=== PATIENT | male | born 1980 | race African-American/Black ===

== ENCOUNTER 2021-07-27 21:56 | Inpatient (IN) ==
[2021-07-27] MEDS ORDERED: ALBUT/IPRATROP 3MG/0.5MG NEB 3 ML VIAL NEB ONE (22:04)
[2021-07-27] MEDS ORDERED: SODIUM CHLORIDE 0.9% 500 ML IV STA (22:04)
--- NOTE | 2021-07-27 22:19 | XRay Report ---
XR chest 1V portable CLINICAL HISTORY: Dyspnea. Nonsmoker COMPARISON STUDY: No previous studies for comparison. TECHNIQUE: 1 view of the chest FINDINGS: Single frontal view of the chest demonstrates the cardiomediastinal silhouette to be within normal li mits. The lungs are clear of alveolar opacities. There is no evidence for pleural effusion. There is no evidence for vascular congestion. There is no acute osseous pathology. IMPRESSION: No acute cardiopulmonary disease. ACT 112: Negative or not required by law. Electronically signed by: Eren Ashford M.D. 07/27/2021 10:18 PM
--- NOTE | 2021-07-27 22:22 | Emergency Department Note ---
Impression & Plan Asthma with exacerbation, Hypoxia, COVID-19 ED Provider Note NAME: MARIANA [id number] LILIA AGE: 41 SEX: M : 1980 ARRIVES VIA: Ambulance INFORMANT: Patient, ED PROVIDER(S): Janes Pizarro DO CHIEF COMPLAINT: Shortness of breath HPI: The patient is a 41-year-old male who presented to the emergency department for an evaluation of difficulty breathing. The patient has a history of asthma. The patient states that he has never had an intubation for asthma but has had a hospitalization in the past. He was given prednisone as an outpatient. He started having worsening shortness of breath and cough. He was treated with 2 bronchodilators prior to arrival. He was also treated with Solu-Medrol prior to arrival. The patient continues to have significant cough and difficulty breathing. He denies having any lower extremity swelling or pain. He does have a chest pain when he coughs. The patient denies having any recent fevers. He notices no hemoptysis. ROS: See above HPI for pertinent positives & negatives. A total of 10 systems reviewed and were otherwise negative. PAST MEDICAL HISTORY: See Below PAST SURGICAL HISTORY: See Below FAMILY HISTORY: See Below SOCIAL HISTORY: See Below HOME MEDICATIONS: See Below ALLERGIES: See Below VITALS: See Below PHYSICAL EXAMINATION: GENERAL: The patient is awake and alert. The patient is very anxious appearing and appears to be in significant pain. EYES: The conjunctivae are clear. The pupils are round and reactive. EARS, NOSE, MOUTH AND THROAT: The nose is without any evidence of any deformity. Mucous membranes are moist. Tongue is midline. NECK: The neck is nontender and supple. RESPIRATORY: shallow respirations were noted. Diminished breath sounds are noted throughout with expiratory wheezing in all lung dang. There was si gnificant tachypnea and conversational dyspnea. CARDIOVASCULAR: Tachycardic rate with regular rhythm was noted. There was no definite murmur. GASTROINTESTINAL: The abdomen is soft. Abdomen is nontender. MUSCULOSKELETAL/EXTREMITIES: There is no evidence of gross deformity full range of motion is noted in the hips and shoulders. SKIN: There is no obvious evidence of any rash. There are no petechiae, pallor or cyanosis noted. NEUROLOGIC: Patient is awake alert and oriented x3. MEDICAL DECISION MAKING: The patient is a 41-year-old male who presented to the emergency department for an evaluation of difficulty breathing. The patient currently resides in the care home. He has a history of asthma. He has been having asthma-like symptoms for the last few days. This became significantly worse prior to arrival. He was noted to have hypoxia by the prehospital personnel. He was treated with multiple bronchodilator treatments prior to arrival. He also was given Solu- Medrol by the prehospital personnel. The patient was put on an hour-long nebulizer in the emergency department. He was treated with IV fluids. I discussed the patient's laboratory and radiographic studies with him. He still continues to have an oxygen requirement and has significant tachypnea. For this reason I will discuss [facility] I feel the patient may require further inpatient management to further evaluate and treat the patient. Triage Nursing notes reviewed. Prior medical records reviewed Vital Signs: reviewed and remarkable for tachycardia, elevated blood pressure and hypoxia. Differential diagnosis: Reactive airway disease, pneumonia, pneumothorax, COPD, CHF, infections, cardiac ischemia, pulmonary embolism, musculoskeletal, gastrointestinal, as well as other pathologies. ER treatment provided: See below Diagnostics interpreted by me: ECG: EKG was obtained in the emergency department. My interpretation is sinus tachycardia 113 bpm. Frequent PVCs were noted. There is no acute ST segment abnormalities noted. No previous tracing was available. Cardiac Monitoring: An order was placed for continuous cardiac monitoring. The monitor shows a rate of 117 bpm with sinus tachycardia rhythm. Laboratory studies: As stated above and show below. Imaging studies: See below Consultation(s): Dr. Pereira who [facility] was notified about the patient. Past Med/Surg History Medical History Asthma Social History Smoking Status: Former smoker Tobacco Type: Cigarettes Results & Data (ED) Vital Signs Vital Signs - 24 hr 07/27/21 22:06 07/27/21 22:09 07/27/21 22:17 Temperature 37 C Temperature Source Oral Pulse Rate 127 H 127 H Pulse Rate [Apical] 114 H Pulse Rhythm Regular Regular Pulse Strength Normal Respiratory Rate 26 H 26 H 20 Respiratory Effort / Characteristics Nasal Flaring Pursed Lip Retracting Nasal Flaring Retracting Spontaneous Respiratory Depth Shallow Shallow Respiratory Pattern Gasping Blood Pressure 138/91 Blood Pressure [Right Arm] Blood Pressure Mean 106 Blood Pressure Mean [Right Arm] Blood Pressure Position Lying Pulse Oximetry 84 L 93 96 Oxygen Delivery Method Room Air Nasal Cannula Nasal Cannula Oxygen Flow Rate 3 3 Sepsis Recent Fever Within 48 Hours No Sepsis New/Unexplained Change in Mental Status No Sepsis Action Taken by Nursing No Action Required Oxygen Flow Rate - Titration Fraction of Inspired Oxygen - Titration Pulse Oximetry Post Tiitration 07/27/21 23:17 07/27/21 23:36 07/27/21 23:39 Temperature Temperature Source Pulse Rate Pulse Rate [Apical] 117 H Pulse Rhythm Pulse Strength Respiratory Rate 21 Respiratory Effort / Characteristics Respiratory Depth Respiratory Pattern Blood Pressure Blood Pressure [Right Arm] 154/126 H Blood Pressure Mean Blood Pressure Mean [Right Arm] 135 Blood Pressure Position Pulse Oximetry 98 78 L 98 Oxygen Delivery Method Nebulizer Nasal Cannula Oxymask Oxymask Oxygen Flow Rate 3 6 Sepsis Recent Fever Within 48 Hours Sepsis New/Unexplained Change in Mental Status Sepsis Action Taken by Nursing Oxygen Flow Rate - Titration 6 Fraction of Inspired Oxygen - Titration 3 Pulse Oximetry Post Tiitration 96 98 Home Medications Current Medication List: was personally reviewed by me Laboratory Data Attestation: I reviewed the patient's lab results. Result diagrams: 07/27/21 22:12 07/27/21 22:12 Lab Results 07/27/21 07/27/21 07/27/21 Range/Units 22:12 22:12 22:18 WBC 6.90 (4.8-10.8) K/uL RBC 5.45 (4.7-6.1) M/uL Hgb 16.3 (14.0-18.0) g/dL Hct 48.6 (42-52) % MCV 89.2 (80-100) fL MCH 29.9 (25-34) pg MCHC 33.5 (32-36) g/dL RDW Std Deviation 42.2 (36.4-46.3) fL RDW Coeff of Kimi 13.1 (11.5-14.5) % Plt Count 192 (130-400) K/uL MPV 10.2 (7.4-10.4) fL Immature Gran % (Auto) 0.3 % Neut % (Auto) 43.9 % Lymph % (Auto) 34.6 % [place] % (Auto) 10.9 % Eos % (Auto) 9.9 % Baso % (Auto) 0.4 % Neut # (Auto) 3.03 (1.4-6.5) K/uL Lymph # (Auto) 2.39 (1.2-3.4) K/uL [place] # (Auto) 0.75 H (0.11-0.59) K/uL Eos # (Auto) 0.68 H (0-0.5) K/uL Baso # (Auto) 0.03 (0-0.2) K/uL Immature Gran # (Auto) 0.02 (0.00-0.02) K/uL VBG pH (7.36-7.41) VBG pCO2 (38-50) mmHg VBG pO2 mmHg VBG HCO3 mmol/L VBG O2 Saturation % VBG Base Excess mEq/L Sodium 139 (136-145) mmol/L Potassium 3.5 (3.5-5.1) mmol/L Chloride 107 (98-107) mmol/L Carbon Dioxide 24 (21-32) mmol/L Anion Gap 8 (3-11) BUN 7 (6-23) mg/dl Creatinine 1.19 (0.6-1.4) mg/dl Est Cr Clr Drug Dosing 78.2 ml/min Est GFR ( Amer) 86.8 ml/min Est GFR (Non-Af Amer) 74.9 ml/min BUN/Creatinine Ratio 5.9 L (10-20) Glucose 130 H (70-99) mg/dl Calcium 8.9 (8.5-10.1) mg/dl Magnesium 2.1 (1.7-2.4) mg/dl Total Bilirubin 0.4 (0.2-1.0) mg/dl AST 25 (13-39) U/L ALT 30 (7-52) U/L Alkaline Phosphatase 72 (34-104) U/L Troponin I < 0.03 (0-0.04) ng/ml Total Protein 7.3 (6.0-8.3) gm/dl Albumin 4.2 (3.4-5.0) gm/dl Globulin 3.1 (2.5-4.0) gm/dl Albumin/Globulin Ratio 1.4 (0.9-2) SARS-CoV-2 (PCR) POSITIVE A* (Negative) Influenza Type A (PCR) Negative (Neg) Influenza Type B (PCR) Negative (Neg) RSV (RT-PCR) Negative (Neg) 07/27/21 Range/Units 23:06 WBC (4.8-10.8) K/uL RBC (4.7-6.1) M/uL Hgb (14.0-18.0) g/dL Hct (42-52) % MCV (80-100) fL MCH (25-34) pg MCHC (32-36) g/dL RDW Std Deviation (36.4-46.3) fL RDW Coeff of Kimi (11.5-14.5) % Plt Count (130-400) K/uL MPV (7.4-10.4) fL Immature Gran % (Auto) % Neut % (Auto) % Lymph % (Auto) % [place] % (Auto) % Eos % (Auto) % Baso % (Auto) % Neut # (Auto) (1.4-6.5) K/uL Lymph # (Auto) (1.2-3.4) K/uL [place] # (Auto) (0.11-0.59) K/uL Eos # (Auto) (0-0.5) K/uL Baso # (Auto) (0-0.2) K/uL Immature Gran # (Auto) (0.00-0.02) K/uL VBG pH 7.31 L (7.36-7.41) VBG pCO2 58 H (38-50) mmHg VBG pO2 31 mmHg VBG HCO3 29 mmol/L VBG O2 Saturation < 60.0 % VBG Base Excess 1.1 mEq/L Sodium (136-145) mmol/L Potassium (3.5-5.1) mmol/L Chloride (98-107) mmol/L Carbon Dioxide (21-32) mmol/L Anion Gap (3-11) BUN (6-23) mg/dl Creatinine (0.6-1.4) mg/dl Est Cr Clr Drug Dosing ml/min Est GFR ( Amer) ml/min Est GFR (Non-Af Amer) ml/min BUN/Creatinine Ratio (10-20) Glucose (70-99) mg/dl Calcium (8.5-10.1) mg/dl Magnesium (1.7-2.4) mg/dl Total Bilirubin (0.2-1.0) mg/dl AST (13-39) U/L ALT (7-52) U/L Alkaline Phosphatase (34-104) U/L Troponin I (0-0.04) ng/ml Total Protein (6.0-8.3) gm/dl Albumin (3.4-5.0) gm/dl Globulin (2.5-4.0) gm/dl Albumin/Globulin Ratio (0.9-2) SARS-CoV-2 (PCR) (Negative) Influenza Type A (PCR) (Neg) Influenza Type B (PCR) (Neg) RSV (RT-PCR) (Neg) Administered Medications Discontinued Medications Albuterol (Albut/Ipratrop 3mg/0.5mg Neb 3 Ml Vial) 12 ml NEB ONE ONE; Protocol Stop: 07/27/21 22:05 Last Admin: 07/27/21 22:16 Dose: 12 ml Documented by: [id number] Sodium Chloride (Nss) 500 mls @ 999 mls/hr IV .Q31M STA Stop: 07/27/21 22:34 Last Admin: 07/27/21 22:21 Dose: 999 mls/hr Documented by: [id number] Imaging Data Radiologist's Impression: Chest X-Ray 07/27/21 22:04 XR chest 1V portable CLINICAL HISTORY: Dyspnea. Nonsmoker COMPARISON STUDY: No previous studies for comparison. TECHNIQUE: 1 view of the chest FINDINGS: Single frontal view of the chest demonstrates the cardiomediastinal silhouette to be within normal limits. The lungs are clear of alveolar opacities. There is no evidence for pleural effusion. There is no evidence for vascular congestion. There is no acute osseous pathology. IMPRESSION: No acute cardiopulmonary disease. ACT 112: Negative or not required by law. Electronically signed by: Eren Ashford M.D. 07/27/2021 10:18 PM Discharge Plan Visit Data Chief Complaint: Shortness of Breath/Dyspnea Stated Complaint: SOB ED Provider: Janes Pizarro Discharge Problem: Asthma with exacerbation, Hypoxia, COVID-19 Patient Disposition: Being Evaluated by Hospitalist Forms Stand Alone Forms: [facility] -
[2021-07-27 22:23] LABS: Basophils # (auto) 0.03 K/uL (0-0.2); Basophils % (auto) 0.4 %; Eosinophils # (auto) 0.68 K/uL (0-0.5); Eosinophils % (auto) 9.9 %; Hematocrit (blood only) 48.6 % (42-52); Hemoglobin 16.3 g/dL (14.0-18.0); Immature Granulocytes # (auto) 0.02 K/uL (0.00-0.02); Immature Granulocytes % (auto) 0.3 %; Lymphocytes # (auto) 2.39 K/uL (1.2-3.4); Lymphocytes % (auto) 34.6 %; Mean Corpuscular Hemoglobin 29.9 pg (25-34); Mean Corpuscular Hgb Conc 33.5 g/dL (32-36); Mean Corpuscular Volume 89.2 fL (80-100); Mean Platelet Volume 10.2 fL (7.4-10.4); Monocytes # (auto) 0.75 K/uL (0.11-0.59); Monocytes % (auto) 10.9 %; Neutrophils # (auto) 3.03 K/uL (1.4-6.5); Neutrophils % (auto) 43.9 %; Platelet Count 192 K/uL (130-400); RDW Coefficient of Variation 13.1 % (11.5-14.5); RDW Standard Deviation 42.2 fL (36.4-46.3); Red Blood Count 5.45 M/uL (4.7-6.1)
[2021-07-27 22:45] LABS: Troponin I < 0.03 ng/ml (0-0.04)
[2021-07-27 22:51] LABS: Alanine Aminotransferase 30 U/L (7-52); Albumin Globulin Ratio 1.4 (0.9-2); Albumin Level 4.2 gm/dl (3.4-5.0); Alkaline Phosphatase 72 U/L (34-104); Anion Gap 8 (3-11); Aspartate Aminotransferase 25 U/L (13-39); BUN Creatinine Ratio 5.9 (10-20); Bilirubin,Total 0.4 mg/dl (0.2-1.0); Blood Urea Nitrogen 7 mg/dl (6-23); Calcium 8.9 mg/dl (8.5-10.1); Carbon Dioxide 24 mmol/L (21-32); Chloride 107 mmol/L (98-107); Creatinine Clr Calc Pharmacy 78.2 ml/min; Est GFR (African American) 86.8 ml/min; Est GFR (Non-African American) 74.9 ml/min; Globulin 3.1 gm/dl (2.5-4.0); Glucose 130 mg/dl (70-99); Magnesium 2.1 mg/dl (1.7-2.4); Potassium 3.5 mmol/L (3.5-5.1); Sodium 139 mmol/L (136-145); Total Protein 7.3 gm/dl (6.0-8.3)
[2021-07-27 23:02] LABS: Influenza A virus by PCR Negative (Neg); Influenza B virus by PCR Negative (Neg); RSV by PCR Negative (Neg)
[2021-07-27 23:06] LABS: SARS CoV2 RNA(COVID-19) InHosp POSITIVE (Negative)
[2021-07-27 23:23] LABS: Base Excess VBG 1.1 mEq/L; HCO3 VBG 29 mmol/L; PCO2 VBG 58 mmHg (38-50); PO2 VBG 31 mmHg; pH VBG 7.31 (7.36-7.41)
[2021-07-27 23:33] LABS: Oxygen Saturation VBG < 60.0 %
[2021-07-28] MEDS ORDERED: REMDESIVIR 200 MG in SODIUM CHLORIDE 0.9% 210 ML IV STA (01:12)
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
[2021-07-28] MEDS: MAGNESIUM SULFATE / D5W 1 GM/100 ML BAG IV SCH ×2 (02:03→02:38)
[2021-07-28 02:23] LABS: Appearance Urine Clear (Clear); Bilirubin Urine Negative (Negative); Blood Urine Negative (Negative); Color Urine Yellow; Glucose Urine UA Negative (Negative); Ketones Urine Negative (Negative); Leukocyte Esterase Urine Negative (Negative); Nitrite Urine Negative (Negative); Protein Urine Negative (Negative); Specific Gravity Urine 1.006 (1.000-1.030); Urobilinogen Urine Negative (Negative)
[2021-07-28] MEDS ORDERED: ACETAMINOPHEN 325 MG TAB PO PRN (04:08)
[2021-07-28] MEDS ORDERED: ONDANSETRON INJ 2 MG/ML 2 ML VIAL IV PRN (04:08)
[2021-07-28] MEDS ORDERED: ALBUTEROL 0.5% NEB SOLN 2.5 MG/0.5 ML VIAL NEB PRN (04:08)
[2021-07-28] MEDS: ALBUT/IPRATROP 3MG/0.5MG NEB 3 ML VIAL NEB SCH ×3 (04:40→10:22)
[2021-07-28] MEDS ORDERED: PATIENT'S ALLERGY INFO NEEDS ENTERED STA (05:00)
[2021-07-28 06:39] LABS: Base Excess VBG -1.3 mEq/L; HCO3 VBG 26 mmol/L; PCO2 VBG 54 mmHg (38-50); PO2 VBG 35 mmHg
[2021-07-28 07:00] LABS: D Dimer 260 ug/L FEU (0-500)
[2021-07-28 07:20] LABS: Phosphorus 2.7 mg/dl (2.5-4.9)
[2021-07-28 07:31] LABS: Ferritin 88.3 ng/ml (8-388)
[2021-07-28] MEDS: ZINC SULFATE 220 MG CAPSULE PO SCH ×2 (08:29→21:18)
[2021-07-28] MEDS: BENZONATATE 100 MG CAPSULE PO SCH ×3 (08:30→21:18)
[2021-07-28] MEDS: ENOXAPARIN INJ 40 MG/0.4 ML SYR SQ SCH (08:31)
[2021-07-28] MEDS ORDERED: methylPREDNISolone 40 MG in SYRINGE 0 ML IV SCH (09:00)
--- NOTE | 2021-07-28 09:39 | Electrocardiogram Report ---
Test Reason : Blood Pressure : / mmHG Vent. Rate : 113 BPM Atrial Rate : 113 BPM P-R Int : 122 ms QRS Dur : 080 ms QT Int : 310 ms P-R-T Axes : 083 082 031 degrees QTc Int : 425 ms Sinus tachycardia with frequent Premature ventricular complexes Otherwise normal ECG No previous ECGs available Confirmed by Vel Lorenz ([id number]) on 07/28/2021 9:39:27 AM Referred By: [facility] Confirmed By:Vel Lorenz
--- NOTE | 2021-07-28 16:26 | History & Physical Bridge Note ---
Date of Service July 28, 2021 History & Physical Bridge Note I have examined the patient, reviewed the History & Physical and in the interval since the performance of the History & Physical I have noted the following changes of clinical significance: patient states he still isn't feeling much better, he is concerned due to his tachycardia, discussed that it is sinus tachycardia, could be from albuterol plus stress/anxiety he is coughing, it is a dry cough no inspiratory or expiratory wheezing, but not great breath sounds either will increase Solu Medrol to 40mg TID, give him 40mg IV stat now change to Levalbuterol with the tachycardia and him being worried about it reviewed chart, CXR is clear, no infiltrates D dimer only 260 so no concerns abut PE, keep Lovenox once a day he is stable on 2L NC
[2021-07-28] MEDS ORDERED: methylPREDNISolone 40 MG in SYRINGE 0 ML IV ONE (16:45)
[2021-07-28] MEDS: LEVALBUTEROL 1.25MG/0.5ML NEB NEB SCH (19:47)
[2021-07-28] MEDS: methylPREDNISolone 40 MG in SYRINGE 0 ML IV SCH (21:40)
[2021-07-29] MEDS: LEVALBUTEROL 1.25MG/0.5ML NEB NEB SCH ×4 (00:02→19:45)
[2021-07-29 08:01] LABS: Basophils # (auto) 0.01 K/uL (0-0.2); Basophils % (auto) 0.1 %; Hematocrit (blood only) 49.5 % (42-52); Hemoglobin 16.1 g/dL (14.0-18.0); Immature Granulocytes # (auto) 0.05 K/uL (0.00-0.02); Immature Granulocytes % (auto) 0.5 %; Lymphocytes # (auto) 1.02 K/uL (1.2-3.4); Lymphocytes % (auto) 9.2 %; Mean Corpuscular Hemoglobin 29.7 pg (25-34); Mean Corpuscular Hgb Conc 32.5 g/dL (32-36); Mean Corpuscular Volume 91.2 fL (80-100); Mean Platelet Volume 10.5 fL (7.4-10.4); Monocytes # (auto) 1.11 K/uL (0.11-0.59); Neutrophils # (auto) 8.92 K/uL (1.4-6.5); Neutrophils % (auto) 80.2 %; Platelet Count 223 K/uL (130-400); RDW Coefficient of Variation 13.6 % (11.5-14.5); RDW Standard Deviation 45.4 fL (36.4-46.3); Red Blood Count 5.43 M/uL (4.7-6.1); White Blood Count 11.11 K/uL (4.8-10.8)
[2021-07-29] MEDS: ZINC SULFATE 220 MG CAPSULE PO SCH (08:01)
[2021-07-29] MEDS: BENZONATATE 100 MG CAPSULE PO SCH ×3 (08:01→20:13)
[2021-07-29] MEDS: methylPREDNISolone 40 MG in SYRINGE 0 ML IV SCH (08:01)
[2021-07-29] MEDS: ENOXAPARIN INJ 40 MG/0.4 ML SYR SQ SCH (08:08)
[2021-07-29 08:24] LABS: Albumin Level 4.6 gm/dl (3.4-5.0); BUN Creatinine Ratio 12.1 (10-20); Bilirubin Direct 0.1 mg/dl (0-0.2); Bilirubin,Total 0.5 mg/dl (0.2-1.0); Calcium 9.6 mg/dl (8.5-10.1); Est GFR (African American) 108.4 ml/min; Est GFR (Non-African American) 93.6 ml/min; Potassium 4.5 mmol/L (3.5-5.1); Total Protein 7.7 gm/dl (6.0-8.3)
--- NOTE | 2021-07-29 09:26 | XRay Report ---
XR chest 1V portable CLINICAL HISTORY: hypoxia, asthmam, COVID. COMPARISON STUDY: 07/27/2021 TECHNIQUE: 1 view of the chest FINDINGS: Single frontal view of the chest demonstrates the cardiomediastinal silhouette to be within normal li mits. The lungs are clear of alveolar opacities. There is no evidence for pleural effusion. There is no evidence for vascular congestion. There is no acute osseous pathology. IMPRESSION: No acute cardiopulmonary disease. ACT 112: Negative or not required by law. Electronically signed by: Eren Ashford M.D. 07/29/2021 9:25 AM
--- NOTE | 2021-07-29 09:43 | Electrocardiogram Report ---
Test Reason : Blood Pressure : / mmHG Vent. Rate : 136 BPM Atrial Rate : 136 BPM P-R Int : 120 ms QRS Dur : 070 ms QT Int : 288 ms P-R-T Axes : 084 082 052 degrees QTc Int : 433 ms Poor data quality, interpretation may be adversely affected Sinus tachycardia with occasional Premature ventricular complexes Nonspecific ST abnormality When compared with ECG of 27-JUL-2021 22:18, No significant change was found Confirmed by Vel Lorenz ([id number]) on 07/29/2021 9:42:41 AM Referred By: [facility] Confirmed By:Vel Lorenz
[2021-07-29] MEDS ORDERED: REMDESIVIR 100 MG in SODIUM CHLORIDE 0.9% 230 ML IV SCH (12:00)
[2021-07-29] MEDS ORDERED: SODIUM CHLORIDE 0.9% 10ML FLUSH IV SCH (12:00)
--- NOTE | 2021-07-29 12:47 | Hospitalist Progress Note ---
Date of Service July 29, 2021 Assessment & Plan (1) Asthma with exacerbation: Plan: Patient with acute hypoxic respiratory failure in setting of Covid-19 infection, asthma exacerbation long history of asthma, has not been hospitalized for years continues with wheezing, tachypnea today, not feeling any better will increase Solu Medrol to 60mg TID continue levalbuterol q6 with albuterol q2 PRN add Zithromax 500mg daily for atypical coverage he is stable on 2L NC, he is 88% when on room air (2) Hypoxia: Plan: minimal oxygen requirements, he is stable on 2L which is improvement from 6L mask when he was in ED he is working a little hard to breathe, he is tachypneic monitor for any increasing oxygen requirements repeat CXR 07/29 with no infiltrates, do not suspect viral pneumonia as cause of hypoxia (3) COVID-19: Plan: no evidence of viral pneumonia on CXR 07/27 and 07/29 stop Remdesivir continue Solu Medrol for asthma exacerbation continue isolation D dimer normal at 260, no need for CTA chest continue Lovenox 40mg daily (4) Sinus tachycardia: Plan: due to stress, nebulizers no concern about PE with a D dimer of only 260 Plan: F/E/N - Heplock. Monitor electrolytes. Regular diet as tolerated Ppx - Lovenox 40 Code- Full per discussion with patient Admission and Anticipated Discharge Date Admission Date: July 28, 2021 Subjective patient feeling a little more short of breath, more wheezing today he feels the steroids are not helping he is eating and drinking okay, mostly drinking water no fever or chills, he has a dry cough, no chest pain, no N/V/D Review of Systems Review of Systems: All systems reviewed & are unremarkable except as noted in Subjective Constitutional: no fever Respiratory: + cough, + dyspnea, + dyspnea on exertion and + wheezing Cardiovascular: no chest pain Physical Exam Physical Exam: General: well developed, well nourished, no acute distress, uncomfortable Neck: supple, trachea midline, normal thyroid Lungs: bilateral expiratory wheezing, + tachypnea, + accessory muscles, no distress Heart: tachycardic S1 and S2, no murmur, peripheral pulses normal, capillary refill normal, no edema Abdomen: soft, NT, ND, + BS, no hepatomegaly, normal to percussion Extremities: normal in appearance, no cyanosis, no petechiae, strength is 5/5 bilaterally Neuro: awake, cooperative, moves all extremities, no focal motor deficits, CN II-XII intact, sensation in extremities intact, normal speech Skin: warm, dry, no rash, normal turgor Psych: Awake, alert oriented x 3, euthymic affect Results & Data Results & Data ([facility]) Vital Signs (Past 12 Hours) Vital Signs Temp Pulse Pulse Resp BP Pulse Ox 07/29/21 11:29 37.1 C 125 H 22 122/94 95 07/29/21 08:26 132 H 22 85 L 07/29/21 08:00 106 H 07/29/21 07:27 36.4 C L 110 H 21 122/96 91 07/29/21 03:54 36.6 C 127 H 20 132/89 94 07/29/21 03:26 117 H 24 95 Laboratory Results Laboratory Results - last 24 hr 07/29/21 07/29/21 07:30 07:30 WBC 11.11 H RBC 5.43 Hgb 16.1 Hct 49.5 MCV 91.2 MCH 29.7 MCHC 32.5 RDW Std Deviation 45.4 RDW Coeff of Kimi 13.6 Plt Count 223 MPV 10.5 H Immature Gran % (Auto) 0.5 Neut % (Auto) 80.2 Lymph % (Auto) 9.2 [place] % (Auto) 10.0 Eos % (Auto) 0.0 Baso % (Auto) 0.1 Neut # (Auto) 8.92 H Lymph # (Auto) 1.[address] [place] # (Auto) 1.11 H Eos # (Auto) 0.00 Baso # (Auto) 0.01 Immature Gran # (Auto) 0.05 H Sodium 138 Potassium 4.5 Chloride 104 Carbon Dioxide 27 Anion Gap 7 BUN 12 Creatinine 0.99 Est Cr Clr Drug Dosing 94.0 Est GFR ( Amer) 108.4 Est GFR (Non-Af Amer) 93.6 BUN/Creatinine Ratio 12.1 Glucose 115 H Calcium 9.6 Total Bilirubin 0.5 Direct Bilirubin 0.1 AST 32 ALT 31 Alkaline Phosphatase 71 Total Protein 7.7 Albumin 4.6 Medications Administered Current Inpatient Medications Acetaminophen (Acetaminophen 325 Mg Tab) 650 mg PO Q4H PRN PRN Reason: Pain or Fever Stop: 08/27/21 04:07 Last Admin: 07/28/21 06:07 Dose: 650 mg Documented by: Albuterol (Albuterol 0.5% Neb Soln 2.5 Mg/0.5 Ml Vial) 2.5 mg NEB Q2H PRN; Protocol PRN Reason: SOB/Wheeze Stop: 08/27/21 04:07 Last Admin: 07/29/21 03:25 Dose: 2.5 mg Documented by: Azithromycin (Azithromycin 250 Mg Tab) 500 mg PO QAM [facility] Stop: 08/05/21 12:44 Benzonatate (Benzonatate 100 Mg Capsule) 100 mg PO TID [facility] Stop: 08/27/21 08:59 Last Admin: 07/29/21 08:01 Dose: 100 mg Documented by: Enoxaparin Sodium (Enoxaparin Inj 40 Mg/0.4 Ml Syr) 40 mg SQ Q24H [facility] Stop: 08/27/21 07:59 Last Admin: 07/29/21 08:08 Dose: Not Given Documented by: Methylprednisolone 40 mg/ (Syringe) 0.64 mls @ 1.5 mls/min IV TID [facility] Stop: 08/27/21 20:59 Last Admin: 07/29/21 08:01 Dose: 1.5 mls/min Documented by: Levalbuterol HCl (Levalbuterol 1.25mg/0.5ml Neb) 1.25 mg NEB Q6R [facility]; Protocol Stop: 08/27/21 16:29 Last Admin: 07/29/21 08:26 Dose: 1.25 mg Documented by: Ondansetron HCl (Ondansetron Inj 2 Mg/Ml 2 Ml Vial) 4 mg IV Q6H PRN PRN Reason: Nausea Stop: 08/27/21 04:07 Sodium Chloride (Sodium Chloride 0.9% 10ml Flush) 30 ml IV Q24H [facility] Stop: 08/01/21 12:01 Last Admin: 07/29/21 12:18 Dose: 30 ml Documented by: Zinc Sulfate (Zinc Sulfate 220 Mg Capsule) 220 mg PO BID [facility] Stop: 08/27/21 08:59 Last Admin: 07/29/21 08:01 Dose: 220 mg Documented by: PG Care Time/CCT Total # of Minutes Spent Total Time Spent: 32 Total Time Spent with Patient: Total time spent is greater than 50% in coordination of care (as documented) at patient's floor/unit and/or counseling patient: Coding Level of Care Code 50842 Subseq Hosp Care Lvl 3 (25 - SIGNIFICANT, SEPARATELY IDENTIFIABLE ) Diagnoses COVID-19 U07.1 Asthma with exacerbation J45.901 Asthma persistence: unspecified Asthma severity: unspecified severity Hypoxia R09.02 Sinus tachycardia R00.0 (1) Asthma with exacerbation Asthma persistence: unspecified Asthma severity: unspecified severity Qualified Code(s): J45.901 - Unspecified asthma with (acute) exacerbation
[2021-07-29] MEDS: AZITHROMYCIN 250 MG TAB PO SCH (13:12)
[2021-07-29] MEDS: methylPREDNISolone 60 MG in SYRINGE 0 ML IV SCH ×2 (14:00→20:16)
[2021-07-29] MEDS ORDERED: ALBUTEROL 0.083% NEBU SOLN 3 ML VIAL NEB STA (15:59)
[2021-07-29] MEDS ORDERED: LORazepam 0.5 MG/1 ML VIAL IV PRN (16:17)
[2021-07-29] MEDS ORDERED: LORazepam 0.5 MG/1 ML VIAL IV STA ×2 (16:17→18:45)
[2021-07-29] MEDS: MAGNESIUM SULFATE / D5W 1 GM/100 ML BAG IV SCH ×3 (16:36→23:41)
[2021-07-29] MEDS ORDERED: SUCCINYLCHOLINE CHLORIDE 20 MG/ML 10 ML VIAL IV ONE (18:19)
[2021-07-29] MEDS ORDERED: PROPOFOL IV EMULSION 10 MG/ML 20 ML VIAL IV ONE ×2 (18:19→21:37)
[2021-07-29] MEDS ORDERED: IPRATROPIUM BROMIDE NEB SOLN 0.02% 2.5 ML VIAL NEB STA (20:16)
[2021-07-29] MEDS ORDERED: MoRPHine SULFATE 2 MG/ML CARP IV STA (21:18)
[2021-07-29 21:27] LABS: iSTAT Allen Test Pass; iSTAT Art Bld Gas pCO2 Correct 93 mmHg (35-46); iSTAT Art Bld Gas pH Corrected 7.157 (7.35-7.45); iSTAT Arterial Blood Gas HCO3 33 meg/L (19-24); iSTAT Arterial Blood Gas pCO2 93 mmHg (35-46); iSTAT Arterial Blood Gas pH 7.16 (7.35-7.45); iSTAT Arterial Blood Gas pO2 266 mmHg (80-95); iSTAT Arterial Blood Gas pO2 C 266; iSTAT Carbon Dioxide 36 mmol/L (24-31); iSTAT FiO2 70 %; iSTAT Hematocrit 51 % (42-52); iSTAT Hemoglobin 17.3 g/dl (14.0-18.0); iSTAT Potassium 5.7 mmol/L (3.3-5.0); iSTAT Site R Radial; iSTAT Sodium 137 mmol/L (135-144)
[2021-07-29] MEDS ORDERED: RAPID SEQUENCE INDUCTION BAG ONE (21:30)
[2021-07-29] MEDS ORDERED: SODIUM BICARB 8.4% INJ 50 MEQ/50 ML SYR IV ONE (21:38)
[2021-07-29] MEDS ORDERED: PROPOFOL IV EMULSION 10 MG/ML 100 ML VIAL IV ONE (21:44)
[2021-07-29] MEDS: propofoL 1,000 MG/100 ML VIAL IV SCH (21:45)
[2021-07-29] MEDS ORDERED: STAT IV Infusion **Titration per Protocol STA ×2 (21:58→23:07)
[2021-07-29] MEDS: PROPOFOL BOLUS FROM BAG IV PRN (22:00)
[2021-07-29] MEDS ORDERED: MIDAZOLAM HCL 5 MG/ML 1 ML VIAL IV STA (22:01)
--- NOTE | 2021-07-29 22:06 | Anesthesiology Progress Note ---
Date of Service July 29, 2021 Assessment & Plan (1) Required emergent intubation: Plan: Intubation Note Date and time of procedure: 07/29/21 Indication for Intubation: Failure to ventilate Respiratory distress Consent: Emergency procedure in life threatening situation consent implied Time Out: A time-out was performed verifying correct patient with two identifiers, procedure, site, positioning, and special equipment (if needed). Monitors Attached: EKG BP Pulse Oximetry CO2 Induction Medications: [150]mg Propofol Paralytic Medication: [120]mg Succinylcholine Intubation Technique: Adequate preoxygenation Mask Ventilation Oral Airway RSI Equipment: Glidescope[3] View: Grade 1 Endotracheal Tube: Oral 7.0 with Stylet Procedure Details: ET tube was placed atraumatically on [1st] attempt. Balloon was inflated and the tube was secured at [24] cm. Placement was confirmed by auscultation and positive CO2 detection. Post-procedure: Pt hemodynamically stable throughout. Patient tolerated the procedure well without apparent complications. Post placement CXR ordered. Present on Admission?: No Admission and Anticipated Discharge Date Admission Date: July 28, 2021 Subjective Covid positive patient with asthma exacerbation with respiratory failure and in need of emergent intubation (called by ICU team to intubate). Physical Exam Vital Signs: Last Vital Signs Temp 36.7 C 07/29/21 19:36 Pulse 128 H 07/29/21 21:24 Resp 24 07/29/21 21:24 BP 143/107 H 07/29/21 21:24 Pulse Ox 98 07/29/21 21:24 Results & Data ([facility]) Medications Administered Azithromycin (Azithromycin 250 Mg Tab) 500 mg PO QAM [facility] Stop: 08/05/21 12:44 Last Admin: 07/29/21 13:12 Dose: 500 mg Documented by: [id number] Enoxaparin Sodium (Enoxaparin Inj 40 Mg/0.4 Ml Syr) 40 mg SQ Q24H [facility] Stop: 08/27/21 07:59 Last Admin: 07/29/21 08:08 Dose: Not Given Documented by: [id number] Admin: 07/28/21 08:31 Dose: Not Given Documented by: [id number] Methylprednisolone 60 mg/ (Syringe) 0.96 mls @ 1.5 mls/min IV Q8 [facility] Stop: 08/28/21 13:59 Last Admin: 07/29/21 20:16 Dose: 1.5 mls/min Documented by: [id number] Admin: 07/29/21 14:00 Dose: 1.5 mls/min Documented by: [id number] Levalbuterol HCl (Levalbuterol 1.25mg/0.5ml Neb) 1.25 mg NEB Q6R [facility]; Protocol Stop: 08/27/21 16:29 Last Admin: 07/29/21 19:45 Dose: 1.25 mg Documented by: [id number] Admin: 07/29/21 15:04 Dose: 1.25 mg Documented by: [id number] Admin: 07/29/21 08:26 Dose: 1.25 mg Documented by: [id number] Admin: 07/29/21 00:02 Dose: 1.25 mg Documented by: [id number] Admin: 07/28/21 19:47 Dose: 1.25 mg Documented by: [id number]
[2021-07-29] MEDS ORDERED: MIDAZOLAM HCL 5 MG/ML 1 ML VIAL ONE (22:07)
[2021-07-29] MEDS: fentaNYL citrate 2,500 MCG/250 ML BAG IV SCH (22:29)
[2021-07-29] MEDS ORDERED: ALBUT/IPRATROP 3MG/0.5MG NEB 3 ML VIAL ONE (22:39)
[2021-07-29] MEDS ORDERED: METOPROLOL TARTRATE 1 MG/ML VIAL IV STA (22:45)
[2021-07-29] MEDS ORDERED: METOPROLOL TARTRATE 1 MG/ML VIAL IV ONE (22:46)
[2021-07-29] MEDS ORDERED: VECURONIUM BROMIDE 10 MG VIAL IV ONE (22:49)
[2021-07-29] MEDS ORDERED: ALBUTEROL 0.5% NEB SOLN 2.5 MG/0.5 ML VIAL NEB STA (23:04)
--- NOTE | 2021-07-29 23:04 | XRay Report ---
XR chest 1V portable at 9:56 PM CLINICAL HISTORY: intubation. COMPARISON STUDY: 07/29/2021 at 7:57 AM TECHNIQUE: 1 view of the chest FINDINGS: Single frontal view of the chest demonstrates the cardiomediastinal silhouette to be within normal li mits. Endotracheal tube has its place with its tip approximately 5.3 cm above the tono. NG tube is also in place with its tip extending below the edge of the film and into the body of the stomach. The lungs are clear of alveolar opacities. There is no evidence for pleural effusion. There is very mild central vascular congestion present. There is no acute osseous pathology. IMPRESSION: ET and NG tubes in position. Mild central vascular congestion. ACT 112: Negative or not required by law. Electronically signed by: Eren Ashford M.D. 07/29/2021 11:02 PM
[2021-07-29] MEDS ORDERED: MONTELUKAST SODIUM 10 MG TABLET PO ONE (23:05)
[2021-07-29] MEDS ORDERED: ALBUTEROL 0.5% NEB SOLN 2.5 MG/0.5 ML VIAL ONE (23:06)
[2021-07-29] MEDS ORDERED: VECURONIUM BROMIDE 10 MG VIAL IV STA (23:07)
[2021-07-29] MEDS ORDERED: STAT IV STA (23:07)
--- NOTE | 2021-07-29 23:14 | Critical Care Consultation ---
Date of Consultation July 29, 2021 Assessment & Plan (1) Hypercapnic respiratory failure: Reason Critically Ill: 41-year-old male from [place] with history of poorly controlled asthma presents to the ICU with acute asthma exacerbation and worsening hypercapnic respiratory failure requiring emergent intubation. Neuro - Sedation: Propofol, fentanyl drips Cardiac - Tachycardiasinus tachycardia with rate 130s to 140s following albuterol nebulizers. Would hold on beta-salvador for now given patient's asthma exacerbation. Chest x-ray without cardiopulmonary congestion or cardiomegaly. Continue to monitor on telemetry for now. Respiratory - Acute hypercapnic respiratory failure secondary to asthma exacerbationpatient was admitted on 07/28/2021 with acute asthma exacerbation. This evening failed BiPAP trial and had received hour-long neb. Emergently intubated due to worsening respiratory acidosis. Patient was COVID-19 positive on PCR but is not significantly hypoxic at this time chest x-ray is clear without evidence of viral pneumonia. He did receive 1 dose remdesivir. -Following intubation patient exhibited poor compliance and had high peak pressures. He was subsequently paralyzed and was given albuterol through ET tube which did improve compliance Current vent settings, AC VC 32/300/5/35% -Continue Nimbex drip for now. -Solu-Medrol increased to 80 mg 3 times daily -Given 3 g IV mag -DuoNeb scheduled every 4 hours -Started on budesonide 0.5 twice daily, Singulair, and Perforomist -May consider sevofluorane via anesthesia if no improvement with current therapy -Follow-up ABG and chest x-ray in the morning -Continuous monitoring pulse ox and end-tidal CO2 GI - N.p.o. OG tube to low intermittent suction RENAL/LYTES - Creatinine stable, no electrolyte abnormalities Monitor routine BMPs - Foleystrict I's and O's ENDO - No history of diabetes or thyroid disease ICU hyperglycemic protocol HEME - H&H stable, monitor routine CBC ID - Afebrile and WBC 11 this morning. Continue empiric azithromycin for now. COVID-19patient tested + 07/27/2021. However, CRP and D-dimer within normal limits and no active disease on chest x-ray. Is thought respiratory failure related to asthma exacerbation. -Patient did receive 1 dose remdesivir but was discontinued after first dose. -He is currently on Solu-Medrol in favor of dexamethasone due to asthma exacerbation LINES/IV ACCESS - Peripheral IVs DVT PROPHYLAXIS - SCDs, Lovenox I have personally spent 70 minutes of critical care time in the direct management of this patient. This is a life/limb threatening event. This includes time spent evaluating patient, direct bedside care, chart review, placing orders, interpretation of diagnostic studies, discussion with consultants, patient, and family members, as well as other required patient management activities. This time is exclusive of all separately billable procedures, and teaching time and separate from and in addition to any other critical care service time. Thank you for allowing us to participate in the care of this patient. Please refer to my attending physician's documentation for any further recommendations. (2) Asthma with exacerbation: (3) Required emergent intubation: (4) Sinus tachycardia: (5) COVID-19: (6) Hypoxia: History of Present Illness Attending Physician: Preston Guerra DO History of Present Illness Patient is a 41-year-old male with a history of poorly controlled asthma who presented to the emergency department with cough, shortness of breath, wheezing, and chest tightness on 07/28. He was subsequently found to be positive for COVID-19 although he is fully vaccinated and did receive a booster. CRP and D- dimer were within normal limits, he did receive 1 dose remdesivir but was discontinued. Per hospitalist note, he is on a long-acting beta agonist twice daily and reports having to use his rescue inhaler several times per day. Patient was admitted to PCU and was undergoing treatment for acute asthma exacerbation. He had been given hour-long neb, was on Solu-Medrol, and was placed on BiPAP but continued to have respiratory distress, was tripoding, and ABG showed respiratory acidosis with CO2 in the 70s and pH 7.15. Decision was made to emergently intubated and patient was transferred to ICU room and was successfully intubated by anesthesia without complication. Following intubation patient did have high peak pressures and exhibited poor compliance. Patient was started on neuromuscular blockade. On exam he exhibited bilateral wheezing. He was currently getting DuoNeb treatment. I did speak with Dr. Cali who recommended albuterol x2 administered through ET tube, and patient did show improvement in compliance. He was started on budesonide, Singulair, and Perforomist along with scheduled DuoNeb and Solu-Medrol dose was increased. He is currently sedated and mechanically ventilated. Patient mated ICU for further management at this time. Allergies Allergy/AdvReac Type Severity Reaction Status Date / Time No Known Allergies Allergy Unverified 07/28/21 05:31 Patient History Medical History Asthma Surgical History History of hernia repair History of skin graft Family History (Updated 07/28/21 @ 01:27 by Mitali Pereira DO) Other Family history non-contributory Social History Smoking Status: Never smoker Tobacco Type: Cigarettes Second Hand Exposure: No; Hx Alcohol Use: No Communication Ability: Effective Beliefs That Will Affect Care: None Current Living Situation: Other Current Living Situation Comment: alf Feels Safe at Home: Yes Assistive Devices: Oxygen - Continuous Review of Systems Review of Systems: Unobtainable due to cognitive status and Unobtainable due to endotracheal tube Physical Exam Constitutional: average body habitus and + mechanically ventilated Eyes: PERRL, conjunctivae normal, anicteric sclerae ENMT: external ear and nose normal, oropharynx normal Neck: trachea midline, no thyromegaly Respiratory: Wheezing auscultated bilaterally and more pronounced over bronchials. Symmetrical chest wall movement. Cardiovascular: Rate/Rhythm: regular rate and + tachycardic Heart Sounds: normal S1 and normal S2 Vessels: no JVD Extremities: no edema Gastrointestinal (Abdomen): normal bowel sounds, soft, nontender, no hepatosplenomegaly Musculoskeletal: Unable to assess due to sedation/paralytics Skin: no rashes, warm and dry Neurologic: Unable to assess due to sedation/paralytics Psychiatric: Unable to assess due to sedation/paralytics Genitourinary: Indwelling [place] catheter present Results & Data Results & Data ([facility]) Vital Signs (Past 12 Hours) Vital Signs Temp Pulse Pulse Resp BP BP BP 07/29/21 23:09 126 H 32 H 07/29/21 22:31 142 H 25 H 128/87 07/29/21 22:30 142 H 27 H 134/92 07/29/21 22:28 36.7 C 07/29/21 22:27 146 H 28 H 156/120 H 07/29/21 22:15 149 H 26 H 153/105 H 07/29/21 22:05 147 H 27 H 159/106 H 07/29/21 22:00 146 H 29 H 164/99 H 07/29/21 21:56 148 H 23 140/111 H 07/29/21 21:55 137 H 28 H 163/100 H 07/29/21 21:53 144 H 28 H 171/124 H 07/29/21 21:50 142 H 26 H 161/88 H 07/29/21 21:46 148 H 29 H 155/89 H 07/29/21 21:45 147 H 11 L 07/29/21 21:41 124 H 21 182/107 H 07/29/21 21:30 124 H 22 07/29/21 21:24 128 H 24 143/107 H 07/29/21 21:15 126 H 22 07/29/21 21:00 137 H 23 07/29/21 20:41 130 H 23 07/29/21 20:40 22 07/29/21 20:00 122 H 23 07/29/21 19:46 119 H 24 07/29/21 19:36 36.7 C 133 H 22 146/93 H 156/129 H 07/29/21 19:35 144 H 07/29/21 16:21 127 H 07/29/21 15:37 36.6 C 125 H 26 H 153/132 H 07/29/21 15:05 115 H 22 07/29/21 11:29 37.1 C 125 H 22 122/94 Pulse Ox 07/29/21 23:09 99 07/29/21 22:31 91 07/29/21 22:30 92 07/29/21 22:28 07/29/21 22:27 92 07/29/21 22:15 94 07/29/21 22:05 94 07/29/21 22:00 95 07/29/21 21:56 97 07/29/21 21:55 97 07/29/21 21:53 97 07/29/21 21:50 95 07/29/21 21:46 97 07/29/21 21:45 98 07/29/21 21:41 98 07/29/21 21:30 99 07/29/21 21:24 98 07/29/21 21:15 07/29/21 21:00 99 07/29/21 20:41 98 07/29/21 20:40 98 07/29/21 20:00 99 07/29/21 19:46 95 07/29/21 19:36 93 07/29/21 19:35 07/29/21 16:21 07/29/21 15:37 95 07/29/21 15:05 98 07/29/21 11:29 95 Coding Level of Care Code Critical Care 1st 30-74 mins Diagnoses Asthma with exacerbation J45.901 Asthma persistence: unspecified Asthma severity: unspecified severity Hypercapnic respiratory failure J96.92 Required emergent intubation Z98.890 Sinus tachycardia R00.0 COVID-19 U07.1 Hypoxia R09.02 (1) Asthma with exacerbation Asthma persistence: unspecified Asthma severity: unspecified severity Qualified Code(s): J45.901 - Unspecified asthma with (acute) exacerbation
[2021-07-29] MEDS ORDERED: methylPREDNISolone 20 MG in SYRINGE 0 ML IV ONE (23:30)
[2021-07-29] MEDS: CISATRACURIUM BESYLATE 40 MG in DEXTROSE 5% 80 ML IV SCH (23:40)
[2021-07-29] MEDS: ARTIFICIAL TEARS OP OINT 3.5 GM TUBE OP SCH (23:42)
[2021-07-30 00:18] LABS: iSTAT Allen Test Pass; iSTAT Art Bld Gas pCO2 Correct 74 mmHg (35-46); iSTAT Art Bld Gas pH Corrected 7.194 (7.35-7.45); iSTAT Arterial Blood Gas HCO3 29 meg/L (19-24); iSTAT Arterial Blood Gas pCO2 75 mmHg (35-46); iSTAT Arterial Blood Gas pH 7.19 (7.35-7.45); iSTAT Arterial Blood Gas pO2 68 mmHg (80-95); iSTAT Arterial Blood Gas pO2 C 66; iSTAT Carbon Dioxide 31 mmol/L (24-31); iSTAT FiO2 35 %; iSTAT Hematocrit 51 % (42-52); iSTAT Hemoglobin 17.3 g/dl (14.0-18.0); iSTAT Potassium 4.9 mmol/L (3.3-5.0); iSTAT Site L Radial; iSTAT Sodium 138 mmol/L (135-144)
[2021-07-30 00:18] LABS: iSTAT Allen Test Pass; iSTAT Art Bld Gas pCO2 Correct 72 mmHg (35-46); iSTAT Art Bld Gas pH Corrected 7.269 (7.35-7.45); iSTAT Arterial Blood Gas HCO3 33 meg/L (19-24); iSTAT Arterial Blood Gas pCO2 73 mmHg (35-46); iSTAT Arterial Blood Gas pH 7.27 (7.35-7.45); iSTAT Arterial Blood Gas pO2 222 mmHg (80-95); iSTAT Arterial Blood Gas pO2 C 220; iSTAT Carbon Dioxide 35 mmol/L (24-31); iSTAT FiO2 50 %; iSTAT Hematocrit 50 % (42-52); iSTAT Potassium 6.7 mmol/L (3.3-5.0); iSTAT Site L Radial; iSTAT Sodium 137 mmol/L (135-144)
[2021-07-30] MEDS: propofoL 1,000 MG/100 ML VIAL IV SCH ×5 (00:23→23:36)
[2021-07-30 00:25] LABS: Hemoglobin 16.7 g/dL (14.0-18.0); Mean Corpuscular Hemoglobin 29.7 pg (25-34); Mean Corpuscular Hgb Conc 31.5 g/dL (32-36); Mean Corpuscular Volume 94.1 fL (80-100); Platelet Count 178 K/uL (130-400); RDW Coefficient of Variation 13.7 % (11.5-14.5); RDW Standard Deviation 47.6 fL (36.4-46.3); Red Blood Count 5.63 M/uL (4.7-6.1)
[2021-07-30] MEDS: FORMOTEROL 20 MCG/2 ML VIAL NEB SCH ×3 (00:39→19:37)
[2021-07-30 00:48] LABS: Basophils # (auto) 0.01 K/uL (0-0.2); Basophils % (auto) 0.1 %; Immature Granulocytes # (auto) 0.09 K/uL (0.00-0.02); Immature Granulocytes % (auto) 0.5 %; Lymphocytes # (auto) 1.98 K/uL (1.2-3.4); Lymphocytes % (auto) 10.4 %; Monocytes # (auto) 0.67 K/uL (0.11-0.59); Monocytes % (auto) 3.5 %; Neutrophils # (auto) 16.25 K/uL (1.4-6.5); Neutrophils % (auto) 85.5 %
[2021-07-30] MEDS: MAGNESIUM SULFATE / D5W 1 GM/100 ML BAG IV SCH ×4 (00:53→11:51)
[2021-07-30 01:01] LABS: Anion Gap 9 (3-11); BUN Creatinine Ratio 17.4 (10-20); Blood Urea Nitrogen 25 mg/dl (6-23); Calcium 8.9 mg/dl (8.5-10.1); Carbon Dioxide 27 mmol/L (21-32); Chloride 100 mmol/L (98-107); Creatinine Clr Calc Pharmacy 64.7 ml/min; Est GFR (African American) 68.9 ml/min; Est GFR (Non-African American) 59.5 ml/min; Glucose 154 mg/dl (70-99(Fasting)); Sodium 136 mmol/L (136-145)
[2021-07-30] MEDS: NORMOSOL-R 1,000 ML IV SCH ×2 (01:03→13:16)
[2021-07-30] MEDS ORDERED: ALBUTEROL 0.5% NEB SOLN 2.5 MG/0.5 ML VIAL ONE ×2 (01:11→04:20)
[2021-07-30] MEDS ORDERED: RACEPINEPHRINE 2.25% NEBU SOLN 0.5 ML VIAL NEB STA (01:15)
[2021-07-30] MEDS ORDERED: RACEPINEPHRINE 2.25% NEBU SOLN 0.5 ML VIAL ONE (01:32)
[2021-07-30] MEDS ORDERED: STAT IV Infusion **Titration per Protocol STA (01:42)
[2021-07-30] MEDS: KETAMINE HCL / NSS 500 MG/500 ML BAG IV SCH ×3 (02:07→22:07)
[2021-07-30] MEDS ORDERED: SODIUM BICARB 8.4% INJ 50 MEQ/50 ML SYR IV STA (02:36)
[2021-07-30] MEDS ORDERED: SODIUM POLYSTYRENE SULFONATE 15G/60ML SUSP PO STA (02:36)
[2021-07-30] MEDS ORDERED: INSULIN HUMAN REGULAR PER UNIT 10 UNITS in SYRINGE 9.9 ML IV STA (02:36)
[2021-07-30] MEDS ORDERED: DEXTROSE 50% 50 ML SYRINGE IV ONE (02:36)
[2021-07-30] MEDS ORDERED: ALBUT/IPRATROP 3MG/0.5MG NEB 3 ML VIAL ONE (03:56)
[2021-07-30] MEDS: ALBUT/IPRATROP 3MG/0.5MG NEB 3 ML VIAL NEB SCH ×5 (04:03→19:37)
[2021-07-30] MEDS ORDERED: ALBUT/IPRATROP 3MG/0.5MG NEB 3 ML VIAL NEB ONE ×2 (04:17→11:04)
[2021-07-30] MEDS ORDERED: ALBUTEROL 0.083% NEBU SOLN 3 ML VIAL NEB STA ×2 (04:17→04:22)
[2021-07-30] MEDS: ARTIFICIAL TEARS OP OINT 3.5 GM TUBE OP SCH ×6 (04:40→23:36)
[2021-07-30 04:41] LABS: iSTAT Allen Test Pass; iSTAT Art Bld Gas pCO2 Correct 76 mmHg (35-46); iSTAT Art Bld Gas pH Corrected 7.171 (7.35-7.45); iSTAT Arterial Blood Gas HCO3 28 meg/L (19-24); iSTAT Arterial Blood Gas pCO2 77 mmHg (35-46); iSTAT Arterial Blood Gas pH 7.17 (7.35-7.45); iSTAT Arterial Blood Gas pO2 88 mmHg (80-95); iSTAT Arterial Blood Gas pO2 C 86; iSTAT Carbon Dioxide 30 mmol/L (24-31); iSTAT FiO2 40 %; iSTAT Hematocrit 46 % (42-52); iSTAT Hemoglobin 15.6 g/dl (14.0-18.0); iSTAT Potassium 4.5 mmol/L (3.3-5.0); iSTAT Site L Radial; iSTAT Sodium 135 mmol/L (135-144)
[2021-07-30] MEDS: methylPREDNISolone 80 MG in SYRINGE 0 ML IV SCH ×3 (05:48→22:13)
--- NOTE | 2021-07-30 05:59 | Communication Note ---
Date of Service: July 30, 2021 07/29/21 ~9PM Patient had increased WOB and was seen tripoding during the evening w/ loud wheezes on exam. Bipap was started and initially tolerated, but later had difficulty tolerating. Sats were upper 90s on bipap and dipped to 70s when switched to oxymask 6-9L. Added atrovent w/o improvement of symptoms and patient had already trialed multiple neb treatments including an hour long session previously. POC ABG showed worsening acidosis 7.16/93/266/33. Discussed w/ ICU provider and transferred patient to ICU care as emergent intubation was needed.
[2021-07-30] MEDS: BUDESONIDE 0.5 MG/2 ML VIAL (PULMICORT) NEB SCH ×2 (06:18→19:37)
[2021-07-30 06:30] LABS: iSTAT Allen Test Pass; iSTAT Arterial Blood Gas HCO3 30 meg/L (19-24); iSTAT Arterial Blood Gas pCO2 95 mmHg (35-46); iSTAT Arterial Blood Gas pO2 67 mmHg (80-95); iSTAT Carbon Dioxide 33 mmol/L (24-31); iSTAT FiO2 40 %; iSTAT Site L Radial
[2021-07-30] MEDS ORDERED: ALBUT/IPRATROP 3MG/0.5MG NEB 3 ML VIAL NEB SCH (07:00)
[2021-07-30] MEDS: ENOXAPARIN INJ 40 MG/0.4 ML SYR SQ SCH (07:25)
[2021-07-30 07:27] LABS: Hematocrit (blood only) 49.4 % (42-52); Hemoglobin 15.5 g/dL (14.0-18.0); Mean Corpuscular Hemoglobin 29.7 pg (25-34); Mean Corpuscular Hgb Conc 31.4 g/dL (32-36); Mean Corpuscular Volume 94.6 fL (80-100); Mean Platelet Volume 10.7 fL (7.4-10.4); Platelet Count 211 K/uL (130-400); RDW Coefficient of Variation 13.7 % (11.5-14.5); RDW Standard Deviation 47.9 fL (36.4-46.3); Red Blood Count 5.22 M/uL (4.7-6.1)
[2021-07-30] MEDS: CISATRACURIUM BESYLATE 40 MG in DEXTROSE 5% 80 ML IV SCH ×2 (07:30→17:17)
[2021-07-30 07:42] LABS: BUN Creatinine Ratio 17.3 (10-20); Calcium 8.5 mg/dl (8.5-10.1); Est GFR (African American) 75.9 ml/min; Est GFR (Non-African American) 65.5 ml/min; Potassium 4.4 mmol/L (3.5-5.1)
[2021-07-30 07:49] LABS: Immature Granulocytes # (auto) 0.19 K/uL (0.00-0.02); Immature Granulocytes % (auto) 0.9 %; Lymphocytes # (auto) 2.24 K/uL (1.2-3.4); Lymphocytes % (auto) 10.3 %; Monocytes # (auto) 1.33 K/uL (0.11-0.59); Monocytes % (auto) 6.1 %; Neutrophils # (auto) 17.94 K/uL (1.4-6.5); Neutrophils % (auto) 82.7 %
[2021-07-30] MEDS: AZITHROMYCIN 250 MG TAB PO SCH (11:04)
[2021-07-30] MEDS: fentaNYL citrate 2,500 MCG/250 ML BAG IV SCH ×2 (11:04→23:36)
--- NOTE | 2021-07-30 11:10 | Hospitalist Progress Note ---
Date of Service July 30, 2021 Assessment & Plan (1) Asthma with exacerbation: Plan: Patient with acute hypoxic respiratory failure in setting of Covid-19 infection, asthma exacerbation, developed hypercapnic respiratory failure long history of asthma, has not been hospitalized for years got worse over two days, quickly decompensated despite treatment intubated evening of 07/29/21 continue Solu Medrol 80mg TID albuterol nebulizers, will give hour long treatment today Zithromax 500mg IV daily for atypical coverage Magnesium 3gm IV today high peak and plateau pressures (2) Hypercapnic respiratory failure: Plan: pCO2 quite high at 90, pH 7.1 will repeat ABG after hour long nebulizer and Magnesium 3gm IV high peak and plateau pressures (3) Hypoxia: Plan: due to asthma but majority of issue was hypercapnia CXR clear on 07/27 and 07/29 only on PEEP 3 and FiO2 50% (4) COVID-19: Plan: no evidence of viral pneumonia on CXR 07/27 and 07/29 stopped Remdesivir continue Solu Medrol for asthma exacerbation continue isolation D dimer normal at 260, no need for CTA chest continue Lovenox 40mg BID (5) Sinus tachycardia: Plan: due to stress, nebulizers no concern about PE with a D dimer of only 260 Plan: remain in ICU Admission and Anticipated Discharge Date Admission Date: July 28, 2021 Subjective patient deteriorated further overnight, ABG showed a pCO2 of 90 with pH of 7.1 he did not do well with BIPAP he required intubation, sedation and needed paralyzed his peak and plateau pressures are both very high, wheezing on exam d/w Dr. Lu, he will give Magnesium 3gm IV, hour long nebulizer and see if pCO2 improves CXR is still clear Review of Systems Review of Systems: Unobtainable due to cognitive status and Unobtainable due to endotracheal tube Physical Exam Physical Exam: General: well developed, well nourished, sedated on ventilator Neck: supple, trachea midline, normal thyroid Lungs: bilateral expiratory wheezing, symmetric chest movement, on ventilator Heart: tachycardic S1 and S2, no murmur, peripheral pulses normal, capillary refill normal, no edema Abdomen: soft, NT, slightly distended, + BS, no hepatomegaly, tympanic to percussion Extremities: normal in appearance, no cyanosis, no petechiae, strength was 5/5 bilaterally prior to paralytics Neuro: sedated, no focal motor deficits, CN II-XII intact Skin: warm, dry, no rash, normal turgor Psych: sedated Results & Data Results & Data ([facility]) Vital Signs (Past 12 Hours) Vital Signs Temp Pulse Pulse Resp BP BP Pulse Ox 07/30/21 10:21 118 H 07/30/21 10:14 107 H 28 H 96 07/30/21 10:00 36.4 C L 105 H 28 H 121/78 97 07/30/21 09:00 36.5 C 111 H 28 H 131/83 96 07/30/21 08:10 117 H 28 H 97 07/30/21 08:00 36.4 C L 118 H 28 H 132/77 97 07/30/21 06:19 114 H 28 H 97 07/30/21 04:25 125 H 28 H 94 07/30/21 04:00 07/30/21 03:59 119 H 32 H 94 07/30/21 02:30 120 H 32 H 118/66 96 07/30/21 02:15 119 H 32 H 119/67 97 07/30/21 02:00 119 H 32 H 121/67 99 07/30/21 01:50 125 H 32 H 98 07/30/21 01:45 122 H 32 H 130/63 100 07/30/21 01:44 149 H 07/30/21 01:30 121 H 120 H 32 H 113/63 100 07/30/21 01:15 120 H 33 H 124/77 97 07/30/21 01:00 120 H 32 H 119/67 88 L 07/30/21 00:45 127 H 32 H 110/69 99 07/30/21 00:39 127 H 32 H 100 07/30/21 00:30 129 H 32 H 107/70 100 07/30/21 00:15 132 H 32 H 108/73 99 07/30/21 00:01 132 H 32 H 94 07/30/21 00:00 132 H 32 H 113/78 94 07/29/21 23:45 136 H 32 H 113/75 93 07/29/21 23:30 143 H 32 H 114/76 92 07/29/21 23:15 141 H 32 H 109/66 100 07/29/21 23:09 126 H 32 H 99 Pulse Ox 07/30/21 10:21 07/30/21 10:14 07/30/21 10:00 07/30/21 09:00 07/30/21 08:10 07/30/21 08:00 07/30/21 06:19 07/30/21 04:25 07/30/21 04:00 98 07/30/21 03:59 07/30/21 02:30 07/30/21 02:15 07/30/21 02:00 07/30/21 01:50 07/30/21 01:45 07/30/21 01:44 07/30/21 01:30 07/30/21 01:15 07/30/21 01:00 07/30/21 00:45 07/30/21 00:39 07/30/21 00:30 07/30/21 00:15 07/30/21 00:01 07/30/21 00:00 07/29/21 23:45 07/29/21 23:30 07/29/21 23:15 07/29/21 23:09 Laboratory Results Laboratory Results - last 24 hr 07/29/21 07/29/21 07/29/21 21:10 23:01 23:47 WBC RBC Hgb POC Hgb 17.3 17.0 Hct POC Hct 51 50 MCV MCH MCHC RDW Std Deviation RDW Coeff of Kimi Plt Count MPV Immature Gran % (Auto) Neut % (Auto) Lymph % (Auto) [place] % (Auto) Eos % (Auto) Baso % (Auto) Neut # (Auto) Lymph # (Auto) [place] # (Auto) Eos # (Auto) Baso # (Auto) Immature Gran # (Auto) Sample Site R Radial L Radial POC pH 7.16 L* 7.27 L POC pCO2 93 H 73 H POC pO2 266 H 222 H POC HCO3 33 H 33 H POC Total CO2 36 H 35 H POC Base Excess 4.0 H 6.0 H ABG pH (Temp Correct) 7.157 L* 7.269 L ABG pCO2 (Temp Corrct 93 H 72 H POC ABG pO2 at Pt Temp 266 220 POC ABG O2 Sat 100.0 H 100.0 H Jv Test Pass Pass O2 Delivery Device BIPAP Ventilator POC O2 Rate 32 POC FiO2 70 50 Tidal Volume 300 PEEP 5 POC Sodium 137 137 Sodium 136 POC Potassium 5.7 H 6.7 H* Potassium TNP Chloride 100 Carbon Dioxide 27 Anion Gap 9 BUN 25 H Creatinine 1.44 H D Est Cr Clr Drug Dosing 64.7 Est GFR ( Amer) 68.9 Est GFR (Non-Af Amer) 59.5 BUN/Creatinine Ratio 17.4 Glucose 154 H Calcium 8.9 07/29/21 07/30/21 07/30/21 23:53 00:01 01:50 WBC 19.00 H RBC 5.63 Hgb 16.7 POC Hgb 17.3 Hct 53.0 H POC Hct 51 MCV 94.1 MCH 29.7 MCHC 31.5 L RDW Std Deviation 47.6 H RDW Coeff of Kimi 13.7 Plt Count 178 MPV 11.0 H Immature Gran % (Auto) 0.5 Neut % (Auto) 85.5 Lymph % (Auto) 10.4 [place] % (Auto) 3.5 Eos % (Auto) 0.0 Baso % (Auto) 0.1 Neut # (Auto) 16.25 H Lymph # (Auto) 1.98 [place] # (Auto) 0.67 H Eos # (Auto) 0.00 Baso # (Auto) 0.01 Immature Gran # (Auto) 0.09 H Sample Site L Radial POC pH 7.19 L* POC pCO2 75 H POC pO2 68 L POC HCO3 29 H POC Total CO2 31 POC Base Excess 0.0 ABG pH (Temp Correct) 7.194 L* ABG pCO2 (Temp Corrct 74 H POC ABG pO2 at Pt Temp 66 POC ABG O2 Sat 87.0 L Jv Test Pass O2 Delivery Device Ventilator POC O2 Rate 32 POC FiO2 35 Tidal Volume 300 PEEP 5 POC Sodium 138 Sodium POC Potassium 4.9 Potassium 6.3 H* D Chloride Carbon Dioxide Anion Gap BUN Creatinine Est Cr Clr Drug Dosing Est GFR ( Amer) Est GFR (Non-Af Amer) BUN/Creatinine Ratio Glucose Calcium 07/30/21 07/30/21 07/30/21 03:50 06:03 06:12 WBC 21.70 H RBC 5.22 Hgb 15.5 POC Hgb 15.6 Hct 49.4 POC Hct 46 MCV 94.6 MCH 29.7 MCHC 31.4 L RDW Std Deviation 47.9 H RDW Coeff of Kimi 13.7 Plt Count 211 MPV 10.7 H Immature Gran % (Auto) 0.9 Neut % (Auto) 82.7 Lymph % (Auto) 10.3 [place] % (Auto) 6.1 Eos % (Auto) 0.0 Baso % (Auto) 0.0 Neut # (Auto) 17.94 H Lymph # (Auto) 2.24 [place] # (Auto) 1.33 H Eos # (Auto) 0.00 Baso # (Auto) 0.00 Immature Gran # (Auto) 0.19 H Sample Site L Radial L Radial POC pH 7.17 L* 7.10 L* POC pCO2 77 H 95 H POC pO2 88 67 L POC HCO3 28 H 30 H POC Total CO2 30 33 H POC Base Excess -1.0 0.0 ABG pH (Temp Correct) 7.171 L* ABG pCO2 (Temp Corrct 76 H POC ABG pO2 at Pt Temp 86 POC ABG O2 Sat 93.0 83.0 L Jv Test Pass Pass O2 Delivery Device Ventilator Ventilator POC O2 Rate 32 28 POC FiO2 40 40 Tidal Volume 320 300 PEEP 3 3 POC Sodium 135 Sodium POC Potassium 4.5 Potassium Chloride Carbon Dioxide Anion Gap BUN Creatinine Est Cr Clr Drug Dosing Est GFR ( Amer) Est GFR (Non-Af Amer) BUN/Creatinine Ratio Glucose Calcium 07/30/21 06:12 WBC RBC Hgb POC Hgb Hct POC Hct MCV MCH MCHC RDW Std Deviation RDW Coeff of Kimi Plt Count MPV Immature Gran % (Auto) Neut % (Auto) Lymph % (Auto) [place] % (Auto) Eos % (Auto) Baso % (Auto) Neut # (Auto) Lymph # (Auto) [place] # (Auto) Eos # (Auto) Baso # (Auto) Immature Gran # (Auto) Sample Site POC pH POC pCO2 POC pO2 POC HCO3 POC Total CO2 POC Base Excess ABG pH (Temp Correct) ABG pCO2 (Temp Corrct POC ABG pO2 at Pt Temp POC ABG O2 Sat Jv Test O2 Delivery Device POC O2 Rate POC FiO2 Tidal Volume PEEP POC Sodium Sodium 139 POC Potassium Potassium 4.4 D Chloride 98 Carbon Dioxide 28 Anion Gap 13 H BUN 23 Creatinine 1.33 Est Cr Clr Drug Dosing 70.0 Est GFR ( Amer) 75.9 Est GFR (Non-Af Amer) 65.5 BUN/Creatinine Ratio 17.3 Glucose 253 H Calcium 8.5 Medications Administered Current Inpatient Medications Albuterol (Albut/Ipratrop 3mg/0.5mg Neb 3 Ml Vial) 3 ml NEB Q4R [facility]; Protocol Stop: 08/29/21 03:59 Last Admin: 07/30/21 10:14 Dose: 3 ml Documented by: Albuterol (Albut/Ipratrop 3mg/0.5mg Neb 3 Ml Vial) 12 ml NEB ONE ONE; Protocol Stop: 07/30/21 11:05 Last Admin: 07/30/21 11:05 Dose: 12 ml Documented by: Azithromycin (Azithromycin 250 Mg Tab) 500 mg PO QAM [facility] Stop: 08/05/21 12:44 Last Admin: 07/30/21 11:04 Dose: Not Given Documented by: Budesonide (Budesonide 0.5 Mg/2 Ml Vial (Pulmicort)) 0.5 mg NEB BIDR [facility] Stop: 08/29/21 06:59 Last Admin: 07/30/21 06:18 Dose: 0.5 mg Documented by: Enoxaparin Sodium (Enoxaparin Inj 40 Mg/0.4 Ml Syr) 40 mg SQ Q24H [facility] Stop: 08/27/21 07:59 Last Admin: 07/30/21 07:25 Dose: 40 mg Documented by: Fentanyl Citrate (Fentanyl Bolus From Bag) 50 mcg IV Q60M PRN PRN Reason: Pain or Agitation Stop: 08/12/21 21:57 Last Admin: 07/29/21 22:29 Dose: 50 mcg Documented by: Formoterol Fumarate (Formoterol 20 Mcg/2 Ml Vial) 20 mcg NEB BIDR [facility] Stop: 08/28/21 23:14 Last Admin: 07/30/21 08:03 Dose: 20 mcg Documented by: Propofol (Diprivan) 1,000 mg in 100 mls @ 23.13 mls/hr IV .Q4H20M [facility]; Protocol Stop: 08/01/21 21:59 Last Admin: 07/30/21 09:21 Dose: 50 mcg/kg/min, 23.1 mls/hr Documented by: Fentanyl Citrate (Fentanyl Citrate) 2,500 mcg in 250 mls @ 20 mls/hr IV .[id number] [facility]; Protocol Stop: 08/12/21 21:59 Last Titration: 07/29/21 22:37 Dose: 200 mcg/hr, 20 mls/hr Documented by: Methylprednisolone 80 mg/ (Syringe) 1.28 mls @ 1.5 mls/min IV Q8H [facility] Stop: 08/29/21 05:59 Last Admin: 07/30/21 05:48 Dose: 1.5 mls/min Documented by: Cisatracurium Besylate 40 mg/ (Dextrose) 100 mls @ 10.26 mls/hr IV .Q9H45M [facility]; Protocol Stop: 08/28/21 23:14 Last Admin: 07/30/21 07:30 Dose: 1 mcg/kg/min, 10.3 mls/hr Documented by: Parenteral Electrolytes (Normosol-R) 1,000 mls @ 80 mls/hr IV .[id number] [facility] Stop: 08/29/21 00:29 Last Admin: 07/30/21 01:03 Dose: 80 mls/hr Documented by: Ketamine HCl (Ketalar / Nss) 500 mg in 500 mls @ 53.97 mls/hr IV .Q9H16M [facility]; Protocol Stop: 08/01/21 01:44 Last Titration: 07/30/21 06:45 Dose: 0.7 mg/kg/hr, 54 mls/hr Documented by: Famotidine 20 mg/ Syringe 5 mls @ 2.5 mls/min IV Q12 [facility] Stop: 08/29/21 11:59 Montelukast Sodium (Montelukast Sodium 10 Mg Tablet) 10 mg PO HS [facility] Stop: 08/29/21 20:59 Multi-Ingredient Cream (Artificial Tears Op Oint 3.5 Gm Tube) 1 appln OP Q4H [facility] Stop: 08/29/21 00:00 Last Admin: 07/30/21 07:29 Dose: 1 appln Documented by: Ondansetron HCl (Ondansetron Inj 2 Mg/Ml 2 Ml Vial) 4 mg IV Q6H PRN PRN Reason: Nausea Stop: 08/27/21 04:07 Propofol (Propofol Bolus From Bag) 20 mg IV Q5M PRN PRN Reason: Sedation Stop: 08/01/21 21:57 Last Admin: 07/29/21 22:00 Dose: 20 mg Documented by: PG Care Time/CCT Total # of Minutes Spent Total Time Spent with Patient: Total time spent is greater than 50% in coordination of care (as documented) at patient's floor/unit and/or counseling patient: Coding Level of Care Code 97438 Subseq Hosp Care Lvl 3 Diagnoses Asthma with exacerbation J45.901 Asthma persistence: unspecified Asthma severity: unspecified severity Hypoxia R09.02 COVID-19 U07.1 Sinus tachycardia R00.0 Hypercapnic respiratory failure J96.92 (1) Asthma with exacerbation Asthma persistence: unspecified Asthma severity: unspecified severity Qualified Code(s): J45.901 - Unspecified asthma with (acute) exacerbation
[2021-07-30] MEDS ORDERED: MAGNESIUM SULFATE / D5W 1 GM/100 ML BAG IV STA (11:11)
[2021-07-30] MEDS ORDERED: MAGNESIUM SULFATE / D5W 1 GM/100 ML BAG IV ONE (11:30)
[2021-07-30] MEDS: AZITHROMYCIN 500 MG in DEXTROSE 5% 250 ML IV SCH (12:04)
[2021-07-30] MEDS: FAMOTIDINE 20 MG in SYRINGE 3 ML IV SCH ×2 (12:05→20:16)
[2021-07-30 12:40] LABS: C Reactive Protein < 0.50 mg/dl (0-0.5)
[2021-07-30] MEDS ORDERED: PHARMACY GLYCEMIC MGMT CONSULT PRN (14:42)
[2021-07-30] MEDS ORDERED: INSULIN GLARGINE SOLOSTAR 100 UNITS/ML 3 ML PEN SC STA (14:42)
--- NOTE | 2021-07-30 15:01 | Pharmacy Report ---
Pharmacy Glycemic Short Note 2 - Date of Service July 30, 2021 - Glycemic Short BSG Results (Last 24 hours): 07/29/21 07/30/21 23:47 06:12 Glucose 154 H 253 H OUTPATIENT ANTIDIABETIC REGIMEN: * n/A * a1C pending ASSESSMENT: * 41 year old admitted with COVID-19 infection/asthma exacerbation. Currently being treated for asthma exacerbation with methylprednisolone 80 mg q8H, currently intubated, sedated with fentanyl,propofol, also on ketamine infusion. BSGs appear to be elevated with steroid use, not on outpatient diabetes medications per facility records. Will attempt to use ICU protocol for hyperglycemia with novolog scale and reduced dose of lantus as patient is NPO. If BSGs unable to be controlled will start insulin infusion PLAN FOR INPATIENT GLYCEMIC CONTROL: * Hold outpatient oral diabetes medications * Basal insulin * Lantus 10 units x 1 * Bolus insulin * NovoLog per scale ACHS or Q4hrs while NPO * Per protocol scale * Nutritional / Prandial insulin per carb ratio of 1 unit per 14 grams CHO consumed
--- NOTE | 2021-07-30 15:42 | Critical Care Progress Note ---
Date of Service July 30, 2021 Assessment & Plan (1) Hypercapnic respiratory failure: Plan: Reason Critically Ill: 41-year-old male from [facility] with history of poorly controlled asthma presents to the ICU with acute asthma exacerbation and worsening hypercapnic respiratory failure requiring emergent intubation. Neuro - Sedation: Propofol, fentanyl drips Cardiac - Tachycardiasinus tachycardia with rate 130s to 140s following albuterol nebulizers. Would hold on beta-salvador for now given patient's asthma exacerbation. Chest x-ray without cardiopulmonary congestion or cardiomegaly. Continue to monitor on telemetry for now. Respiratory - Acute hypercapnic respiratory failure secondary to asthma exacerbationpatient was admitted on 07/28/2021 with acute asthma exacerbation. This evening failed BiPAP trial and had received hour-long neb. Emergently intubated due to worsening respiratory acidosis. Patient was COVID-19 positive on PCR but is not significantly hypoxic at this time chest x-ray is clear without evidence of viral pneumonia. He did receive 1 dose remdesivir. -Following intubation patient exhibited poor compliance and had high peak pressures. He was subsequently paralyzed and was given albuterol through ET tube which did improve compliance Current vent settings, AC VC 32/300/5/35% -Continue Nimbex drip for now. -Solu-Medrol increased to 80 mg 3 times daily -Give additional 3 g IV mag -DuoNeb scheduled every 4 hours -Started on budesonide 0.5 twice daily, Singulair, and Perforomist -Continuous monitoring pulse ox and end-tidal CO2 GI - N.p.o. OG tube to low intermittent suction RENAL/LYTES - Creatinine stable, no electrolyte abnormalities Monitor routine BMPs - Foleystrict I's and O's ENDO - No history of diabetes or thyroid disease ICU hyperglycemic protocol HEME - H&H stable, monitor routine CBC ID - Afebrile and WBC 11 this morning. Convert azithromycin to IV. COVID-19patient tested + 07/27/2021. However, CRP and D-dimer within normal limits and no active disease on chest x-ray. Is thought respiratory failure related to asthma exacerbation. -Patient did receive 1 dose remdesivir but was discontinued after first dose. -He is currently on Solu-Medrol in favor of dexamethasone due to asthma exacerbation LINES/IV ACCESS - Peripheral IVs DVT PROPHYLAXIS - SCDs, Lovenox I have personally spent 35 minutes of critical care time in the direct management of this patient. This is a life/limb threatening event. This includes time spent evaluating patient, direct bedside care, chart review, placing orders, interpretation of diagnostic studies, discussion with consultants, patient, and family members, as well as other required patient management activities. This time is exclusive of all separately billable procedures, and teaching time and separate from and in addition to any other critical care service time. (2) Asthma with exacerbation: (3) Required emergent intubation: (4) Sinus tachycardia: (5) COVID-19: (6) Hypoxia: Admission and Anticipated Discharge Date Admission Date: July 28, 2021 Subjective Intubated overnight started on neuromuscular blockade Review of Systems Review of Systems: Unobtainable due to endotracheal tube Physical Exam Physical Exam: General: Sedated. GCS: 3 TP Skin: Warm, dry, Head: Atraumatic Ears, nose, mouth and throat: airway obscured by endotracheal tube Cardiovascular: Normal peripheral perfusion Respiratory: Ventilator settings reviewed, expiratory wheezes Gastrointestinal: Non distended Musculoskeletal: No deformity Results & Data Results & Data ([facility]) Vital Signs (Past 12 Hours) Vital Signs Temp Pulse Pulse Resp BP Pulse Ox Pulse Ox 07/30/21 15:00 114 H 28 H 137/85 95 07/30/21 14:58 22 07/30/21 14:46 22 07/30/21 14:00 36.6 C 105 H 28 H 122/86 96 07/30/21 13:00 108 H 28 H 121/90 97 07/30/21 12:00 36.4 C L 114 H 28 H 138/82 97 07/30/21 11:06 117 H 28 H 96 07/30/21 11:00 128 H 28 H 139/91 96 07/30/21 10:21 118 H 07/30/21 10:14 107 H 28 H 96 07/30/21 10:00 36.4 C L 105 H 28 H 121/78 97 07/30/21 09:00 36.5 C 111 H 28 H 131/83 96 07/30/21 08:10 117 H 28 H 97 07/30/21 08:00 36.4 C L 118 H 28 H 132/77 97 07/30/21 06:19 114 H 28 H 97 07/30/21 04:25 125 H 28 H 94 07/30/21 04:00 98 07/30/21 03:59 119 H 32 H 94 Laboratory Results 07/30/21 07/30/21 07/30/21 Range/Units 06:12 06:12 06:03 WBC 21.70 H (4.8-10.8) K/uL RBC 5.22 (4.7-6.1) M/uL Hgb 15.5 (14.0-18.0) g/dL POC Hgb (14.0-18.0) g/dl Hct 49.4 (42-52) % POC Hct (42-52) % MCV 94.6 (80-100) fL MCH 29.7 (25-34) pg MCHC 31.4 L (32-36) g/dL RDW Std Deviation 47.9 H (36.4-46.3) fL RDW Coeff of Kimi 13.7 (11.5-14.5) % Plt Count 211 (130-400) K/uL MPV 10.7 H (7.4-10.4) fL Immature Gran % (Auto) 0.9 % Neut % (Auto) 82.7 % Lymph % (Auto) 10.3 % [place] % (Auto) 6.1 % Eos % (Auto) 0.0 % Baso % (Auto) 0.0 % Neut # (Auto) 17.94 H (1.4-6.5) K/uL Lymph # (Auto) 2.24 (1.2-3.4) K/uL [place] # (Auto) 1.33 H (0.11-0.59) K/uL Eos # (Auto) 0.00 (0-0.5) K/uL Baso # (Auto) 0.00 (0-0.2) K/uL Immature Gran # (Auto) 0.19 H (0.00-0.02) K/uL Sample Site L Radial POC pH 7.10 L* (7.35-7.45) POC pCO2 95 H (35-46) mmHg POC pO2 67 L (80-95) mmHg POC HCO3 30 H (19-24) karin/L POC Total CO2 33 H (24-31) mmol/L POC Base Excess 0.0 (-9-1.8) karin/L ABG pH (Temp Correct) (7.35-7.45) ABG pCO2 (Temp Corrct (35-46) mmHg POC ABG pO2 at Pt Temp POC ABG O2 Sat 83.0 L (90-95) % Jv Test Pass O2 Delivery Device Ventilator POC O2 Rate 28 POC FiO2 40 % Tidal Volume 300 PEEP 3 POC Sodium (135-144) mmol/L Sodium 139 (136-145) mmol/L POC Potassium (3.3-5.0) mmol/L Potassium 4.4 D Chloride 98 (98-107) mmol/L Carbon Dioxide 28 (21-32) mmol/L Anion Gap 13 H (3-11) BUN 23 (6-23) mg/dl Creatinine 1.33 (0.6-1.4) mg/dl Est Cr Clr Drug Dosing 70.0 ml/min Est GFR ( Amer) 75.9 ml/min Est GFR (Non-Af Amer) 65.5 ml/min BUN/Creatinine Ratio 17.3 (10-20) Glucose 253 H (70-99(Fasting)) mg/dl Calcium 8.5 (8.5-10.1) mg/dl C-Reactive Protein (0-0.5) mg/dl 07/30/21 07/30/21 07/30/21 Range/Units 03:50 01:50 00:01 WBC (4.8-10.8) K/uL RBC (4.7-6.1) M/uL Hgb (14.0-18.0) g/dL POC Hgb 15.6 17.3 (14.0-18.0) g/dl Hct (42-52) % POC Hct 46 51 (42-52) % MCV (80-100) fL MCH (25-34) pg MCHC (32-36) g/dL RDW Std Deviation (36.4-46.3) fL RDW Coeff of Kimi (11.5-14.5) % Plt Count (130-400) K/uL MPV (7.4-10.4) fL Immature Gran % (Auto) % Neut % (Auto) % Lymph % (Auto) % [place] % (Auto) % Eos % (Auto) % Baso % (Auto) % Neut # (Auto) (1.4-6.5) K/uL Lymph # (Auto) (1.2-3.4) K/uL [place] # (Auto) (0.11-0.59) K/uL Eos # (Auto) (0-0.5) K/uL Baso # (Auto) (0-0.2) K/uL Immature Gran # (Auto) (0.00-0.02) K/uL Sample Site L Radial L Radial POC pH 7.17 L* 7.19 L* (7.35-7.45) POC pCO2 77 H 75 H (35-46) mmHg POC pO2 88 68 L (80-95) mmHg POC HCO3 28 H 29 H (19-24) karin/L POC Total CO2 30 31 (24-31) mmol/L POC Base Excess -1.0 0.0 (-9-1.8) karin/L ABG pH (Temp Correct) 7.171 L* 7.194 L* (7.35-7.45) ABG pCO2 (Temp Corrct 76 H 74 H (35-46) mmHg POC ABG pO2 at Pt Temp 86 66 POC ABG O2 Sat 93.0 87.0 L (90-95) % Jv Test Pass Pass O2 Delivery Device Ventilator Ventilator POC O2 Rate 32 32 POC FiO2 40 35 % Tidal Volume 320 300 PEEP 3 5 POC Sodium 135 138 (135-144) mmol/L Sodium (136-145) mmol/L POC Potassium 4.5 4.9 (3.3-5.0) mmol/L Potassium 6.3 H* D Chloride (98-107) mmol/L Carbon Dioxide (21-32) mmol/L Anion Gap (3-11) BUN (6-23) mg/dl Creatinine (0.6-1.4) mg/dl Est Cr Clr Drug Dosing ml/min Est GFR ( Amer) ml/min Est GFR (Non-Af Amer) ml/min BUN/Creatinine Ratio (10-20) Glucose (70-99(Fasting)) mg/dl Calcium (8.5-10.1) mg/dl C-Reactive Protein (0-0.5) mg/dl 07/29/21 07/29/21 07/29/21 Range/Units 23:53 23:47 23:01 WBC 19.00 H (4.8-10.8) K/uL RBC 5.63 (4.7-6.1) M/uL Hgb 16.7 (14.0-18.0) g/dL POC Hgb 17.0 (14.0-18.0) g/dl Hct 53.0 H (42-52) % POC Hct 50 (42-52) % MCV 94.1 (80-100) fL MCH 29.7 (25-34) pg MCHC 31.5 L (32-36) g/dL RDW Std Deviation 47.6 H (36.4-46.3) fL RDW Coeff of Kimi 13.7 (11.5-14.5) % Plt Count 178 (130-400) K/uL MPV 11.0 H (7.4-10.4) fL Immature Gran % (Auto) 0.5 % Neut % (Auto) 85.5 % Lymph % (Auto) 10.4 % [place] % (Auto) 3.5 % Eos % (Auto) 0.0 % Baso % (Auto) 0.1 % Neut # (Auto) 16.25 H (1.4-6.5) K/uL Lymph # (Auto) 1.98 (1.2-3.4) K/uL [place] # (Auto) 0.67 H (0.11-0.59) K/uL Eos # (Auto) 0.00 (0-0.5) K/uL Baso # (Auto) 0.01 (0-0.2) K/uL Immature Gran # (Auto) 0.09 H (0.00-0.02) K/uL Sample Site L Radial POC pH 7.27 L (7.35-7.45) POC pCO2 73 H (35-46) mmHg POC pO2 222 H (80-95) mmHg POC HCO3 33 H (19-24) karin/L POC Total CO2 35 H (24-31) mmol/L POC Base Excess 6.0 H (-9-1.8) karin/L ABG pH (Temp Correct) 7.269 L (7.35-7.45) ABG pCO2 (Temp Corrct 72 H (35-46) mmHg POC ABG pO2 at Pt Temp 220 POC ABG O2 Sat 100.0 H (90-95) % Jv Test Pass O2 Delivery Device Ventilator POC O2 Rate 32 POC FiO2 50 % Tidal Volume 300 PEEP 5 POC Sodium 137 (135-144) mmol/L Sodium 136 (136-145) mmol/L POC Potassium 6.7 H* (3.3-5.0) mmol/L Potassium TNP Chloride 100 (98-107) mmol/L Carbon Dioxide 27 (21-32) mmol/L Anion Gap 9 (3-11) BUN 25 H (6-23) mg/dl Creatinine 1.44 H D (0.6-1.4) mg/dl Est Cr Clr Drug Dosing 64.7 ml/min Est GFR ( Amer) 68.9 ml/min Est GFR (Non-Af Amer) 59.5 ml/min BUN/Creatinine Ratio 17.4 (10-20) Glucose 154 H (70-99(Fasting)) mg/dl Calcium 8.9 (8.5-10.1) mg/dl C-Reactive Protein (0-0.5) mg/dl 07/29/21 07/28/21 Range/Units 21:10 06:24 WBC (4.8-10.8) K/uL RBC (4.7-6.1) M/uL Hgb (14.0-18.0) g/dL POC Hgb 17.3 (14.0-18.0) g/dl Hct (42-52) % POC Hct 51 (42-52) % MCV (80-100) fL MCH (25-34) pg MCHC (32-36) g/dL RDW Std Deviation (36.4-46.3) fL RDW Coeff of Kimi (11.5-14.5) % Plt Count (130-400) K/uL MPV (7.4-10.4) fL Immature Gran % (Auto) % Neut % (Auto) % Lymph % (Auto) % [place] % (Auto) % Eos % (Auto) % Baso % (Auto) % Neut # (Auto) (1.4-6.5) K/uL Lymph # (Auto) (1.2-3.4) K/uL [place] # (Auto) (0.11-0.59) K/uL Eos # (Auto) (0-0.5) K/uL Baso # (Auto) (0-0.2) K/uL Immature Gran # (Auto) (0.00-0.02) K/uL Sample Site R Radial POC pH 7.16 L* (7.35-7.45) POC pCO2 93 H (35-46) mmHg POC pO2 266 H (80-95) mmHg POC HCO3 33 H (19-24) karin/L POC Total CO2 36 H (24-31) mmol/L POC Base Excess 4.0 H (-9-1.8) karin/L ABG pH (Temp Correct) 7.157 L* (7.35-7.45) ABG pCO2 (Temp Corrct 93 H (35-46) mmHg POC ABG pO2 at Pt Temp 266 POC ABG O2 Sat 100.0 H (90-95) % Jv Test Pass O2 Delivery Device BIPAP POC O2 Rate POC FiO2 70 % Tidal Volume PEEP POC Sodium 137 (135-144) mmol/L Sodium (136-145) mmol/L POC Potassium 5.7 H (3.3-5.0) mmol/L Potassium Chloride (98-107) mmol/L Carbon Dioxide (21-32) mmol/L Anion Gap (3-11) BUN (6-23) mg/dl Creatinine (0.6-1.4) mg/dl Est Cr Clr Drug Dosing ml/min Est GFR ( Amer) ml/min Est GFR (Non-Af Amer) ml/min BUN/Creatinine Ratio (10-20) Glucose (70-99(Fasting)) mg/dl Calcium (8.5-10.1) mg/dl C-Reactive Protein < 0.50 (0-0.5) mg/dl Coding Level of Care Code Critical Care 1st 30-74 mins Diagnoses Hypercapnic respiratory failure J96.92 Asthma with exacerbation J45.901 Asthma persistence: unspecified Asthma severity: unspecified severity Required emergent intubation Z98.890 Sinus tachycardia R00.0 COVID-19 U07.1 Hypoxia R09.02 (1) Asthma with exacerbation Asthma persistence: unspecified Asthma severity: unspecified severity Qualified Code(s): J45.901 - Unspecified asthma with (acute) exacerbation
[2021-07-30] MEDS ORDERED: INSULIN ASPART 100 UNITS/ML 3 ML PEN SC SCH (16:00)
[2021-07-30] MEDS: INSULIN ASPART PER UNIT SC SCH ×3 (16:22→23:36)
[2021-07-30] MEDS: INSULIN INFUSION~PENDING ORDER SCH (16:38)
[2021-07-30 18:06] LABS: iSTAT Art Bld Gas pCO2 Correct 94 mmHg (35-46); iSTAT Art Bld Gas pH Corrected 7.206 (7.35-7.45); iSTAT Arterial Blood Gas HCO3 37 meg/L (19-24); iSTAT Arterial Blood Gas pCO2 94 mmHg (35-46); iSTAT Arterial Blood Gas pH 7.21 (7.35-7.45); iSTAT Arterial Blood Gas pO2 72 mmHg (80-95); iSTAT Arterial Blood Gas pO2 C 72; iSTAT Carbon Dioxide > 40 mmol/L (24-31); iSTAT Hematocrit 44 % (42-52); iSTAT Potassium 4.2 mmol/L (3.3-5.0); iSTAT Site R Radial; iSTAT Sodium 140 mmol/L (135-144)
[2021-07-30] MEDS: MONTELUKAST SODIUM 10 MG TABLET PO SCH (19:59)
[2021-07-31] MEDS: NORMOSOL-R 1,000 ML IV SCH (02:16)
[2021-07-31] MEDS: ALBUT/IPRATROP 3MG/0.5MG NEB 3 ML VIAL NEB SCH ×8 (02:21→22:26)
[2021-07-31] MEDS: CISATRACURIUM BESYLATE 40 MG in DEXTROSE 5% 80 ML IV SCH (02:27)
[2021-07-31 03:47] LABS: iSTAT Art Bld Gas pCO2 Correct 72 mmHg (35-46); iSTAT Art Bld Gas pH Corrected 7.315 (7.35-7.45); iSTAT Arterial Blood Gas HCO3 39 meg/L (19-24); iSTAT Arterial Blood Gas pCO2 86 mmHg (35-46); iSTAT Arterial Blood Gas pH 7.26 (7.35-7.45); iSTAT Arterial Blood Gas pO2 106 mmHg (80-95); iSTAT Arterial Blood Gas pO2 C 85; iSTAT Carbon Dioxide > 40 mmol/L (24-31); iSTAT FiO2 50 %; iSTAT Hematocrit 42 % (42-52); iSTAT Hemoglobin 14.3 g/dl (14.0-18.0); iSTAT Potassium 3.9 mmol/L (3.3-5.0); iSTAT Site R Radial; iSTAT Sodium 143 mmol/L (135-144)
[2021-07-31] MEDS: ARTIFICIAL TEARS OP OINT 3.5 GM TUBE OP SCH ×5 (03:56→19:53)
[2021-07-31] MEDS: INSULIN ASPART PER UNIT SC SCH ×5 (03:56→19:53)
[2021-07-31] MEDS: INSULIN INFUSION~PENDING ORDER SCH ×2 (03:56→11:09)
[2021-07-31] MEDS: propofoL 1,000 MG/100 ML VIAL IV SCH ×5 (03:57→21:00)
[2021-07-31] MEDS: methylPREDNISolone 80 MG in SYRINGE 0 ML IV SCH (05:54)
[2021-07-31 06:50] LABS: Hematocrit (blood only) 45.4 % (42-52); Hemoglobin 14.1 g/dL (14.0-18.0); Immature Granulocytes # (auto) 0.15 K/uL (0.00-0.02); Lymphocytes # (auto) 1.03 K/uL (1.2-3.4); Lymphocytes % (auto) 7.1 %; Mean Corpuscular Hemoglobin 29.3 pg (25-34); Mean Corpuscular Hgb Conc 31.1 g/dL (32-36); Mean Corpuscular Volume 94.4 fL (80-100); Mean Platelet Volume 10.4 fL (7.4-10.4); Monocytes % (auto) 6.2 %; Neutrophils # (auto) 12.42 K/uL (1.4-6.5); Neutrophils % (auto) 85.7 %; Platelet Count 167 K/uL (130-400); RDW Coefficient of Variation 13.8 % (11.5-14.5); RDW Standard Deviation 47.8 fL (36.4-46.3); Red Blood Count 4.81 M/uL (4.7-6.1)
[2021-07-31] MEDS: KETAMINE HCL / NSS 500 MG/500 ML BAG IV SCH (07:33)
[2021-07-31] MEDS: ENOXAPARIN INJ 40 MG/0.4 ML SYR SQ SCH (07:38)
[2021-07-31 08:07] LABS: Calcium 7.7 mg/dl (8.5-10.1); Creatinine Clr Calc Pharmacy 113.5 ml/min; Est GFR (African American) 126.4 ml/min; Est GFR (Non-African American) 109.1 ml/min; Magnesium 3.6 mg/dl (1.7-2.4); Potassium 4.2 mmol/L (3.5-5.1)
[2021-07-31] MEDS: BUDESONIDE 0.5 MG/2 ML VIAL (PULMICORT) NEB SCH ×2 (08:28→19:46)
[2021-07-31] MEDS: FORMOTEROL 20 MCG/2 ML VIAL NEB SCH ×2 (08:28→19:46)
--- NOTE | 2021-07-31 08:34 | XRay Report ---
XR chest 1V portable CLINICAL HISTORY: Resp failure. COMPARISON STUDY: 07/29/2021 TECHNIQUE: 1 view of the chest FINDINGS: Single frontal view of the chest demonstrates the cardiomediastinal silhouette to be within normal li mits. Endotracheal tube is unchanged. The lungs are clear of alveolar opacities. There is no evidence for pleural effusion. Compared to previous study, there is no longer evidence for central vascular c ongestion. There is no acute osseous pathology. IMPRESSION: No acute cardiopulmonary disease. ET tube unchanged. ACT 112: Negative or not required by law. Electronically signed by: Eren Ashford M.D. 07/31/2021 8:32 AM
[2021-07-31] MEDS: FAMOTIDINE 20 MG in SYRINGE 3 ML IV SCH ×2 (08:36→20:12)
[2021-07-31] MEDS: AZITHROMYCIN 500 MG in DEXTROSE 5% 250 ML IV SCH (08:36)
[2021-07-31 08:56] LABS: Estimated Average Glucose 120 mg/dl; Hemoglobin A1C 5.8 % (4.5-5.6)
--- NOTE | 2021-07-31 09:19 | Critical Care Progress Note ---
Date of Service July 31, 2021 Assessment & Plan (1) Hypercapnic respiratory failure: Plan: Reason Critically Ill: 41-year-old male from [facility] with history of poorly controlled asthma presents to the ICU with acute asthma exacerbation and worsening hypercapnic respiratory failure requiring emergent intubation. Neuro - Sedation: Propofol, fentanyl drips, discontinue cis atracurium today, discontinue ketamine today Cardiac - Tachycardiasinus tachycardia with rate 130s to 140s following albuterol nebulizers. Would hold on beta-salvador for now given patient's asthma exacerbation. Chest x-ray without cardiopulmonary congestion or cardiomegaly. Continue to monitor on telemetry for now. Respiratory - Acute hypercapnic respiratory failure secondary to asthma exacerbationpatient was admitted on 07/28/2021 with acute asthma exacerbation. This evening failed BiPAP trial and had received hour-long neb. Emergently intubated due to worsening respiratory acidosis. Patient was COVID-19 positive on PCR but is not significantly hypoxic at this time chest x-ray is clear without evidence of viral pneumonia. He did receive 1 dose remdesivir. -Following intubation patient exhibited poor compliance and had high peak pressures. He was subsequently paralyzed and was given albuterol through ET tube which did improve compliance -Discontinue Nimbex drip -Solu-Medrol decreased to 60 mg 3 times daily -Give additional 3 g IV mag -DuoNeb scheduled every 4 hours -Started on budesonide 0.5 twice daily, Singulair, and Perforomist -Continuous monitoring pulse ox and end-tidal CO2 GI - N.p.o. OG tube to low intermittent suction RENAL/LYTES - Creatinine stable, no electrolyte abnormalities Monitor routine BMPs - Foleystrict I's and O's ENDO - No history of diabetes or thyroid disease ICU hyperglycemic protocol HEME - H&H stable, monitor routine CBC ID - Afebrile and WBC 11 this morning. azithromycin to IV. COVID-19patient tested + 07/27/2021. However, CRP and D-dimer within normal limits and no active disease on chest x-ray. Is thought respiratory failure related to asthma exacerbation. -Patient did receive 1 dose remdesivir but was discontinued after first dose. -He is currently on Solu-Medrol in favor of dexamethasone due to asthma exacerbation LINES/IV ACCESS - Peripheral IVs DVT PROPHYLAXIS - SCDs, Lovenox I have personally spent 45 minutes of critical care time in the direct management of this patient. This is a life/limb threatening event. This includes time spent evaluating patient, direct bedside care, chart review, placing orders, interpretation of diagnostic studies, discussion with consultants, pat ient, and family members, as well as other required patient management activities. This time is exclusive of all separately billable procedures, and teaching time and separate from and in addition to any other critical care service time. (2) Asthma with exacerbation: (3) Required emergent intubation: (4) Sinus tachycardia: (5) COVID-19: (6) Hypoxia: Admission and Anticipated Discharge Date Admission Date: July 28, 2021 Subjective Mild improvement in blood gas overnight Review of Systems Review of Systems: Unobtainable due to endotracheal tube Physical Exam Physical Exam: General: Sedated. GCS: 3 TP Skin: Warm, dry, Head: Atraumatic Ears, nose, mouth and throat: airway obscured by endotracheal tube Cardiovascular: Normal peripheral perfusion Respiratory: Ventilator settings reviewed Gastrointestinal: Non distended Musculoskeletal: No deformity Results & Data Results & Data ([facility]) Vital Signs (Past 12 Hours) Vital Signs Temp Pulse Pulse Resp BP BP Pulse Ox 07/31/21 09:00 37.6 C H 126 H 22 117/73 89 L 07/31/21 08:29 123 H 22 89 L 07/31/21 08:00 37.2 C 120 H 22 125/70 89 L 07/31/21 07:00 113 H 22 131/75 93 07/31/21 06:30 110 H 22 129/76 93 07/31/21 06:00 35.2 C L 106 H 22 121/79 92 07/31/21 05:30 102 H 22 124/78 90 07/31/21 05:00 98 H 22 118/80 91 07/31/21 04:30 93 H 22 115/78 93 07/31/21 04:00 33.2 C L 90 22 127/79 93 07/31/21 03:30 93 H 22 96 07/31/21 03:00 33.2 C L 87 22 114/79 96 07/31/21 02:30 89 22 117/72 96 07/31/21 02:00 91 H 22 116/76 96 07/31/21 01:44 89 07/31/21 01:30 94 H 22 118/76 96 07/31/21 01:00 97 H 22 122/80 96 07/31/21 00:30 99 H 22 127/80 96 07/31/21 00:00 36.6 C 103 H 22 134/83 95 07/30/21 23:30 107 H 22 134/85 95 07/30/21 23:11 102 H 99 H 22 95 07/30/21 23:00 96 H 22 127/80 94 07/30/21 22:30 98 H 22 126/82 93 07/30/21 22:00 99 H 22 128/83 92 07/30/21 21:30 102 H 22 136/81 91 Pulse Ox 07/31/21 09:00 07/31/21 08:29 07/31/21 08:00 07/31/21 07:00 07/31/21 06:30 07/31/21 06:00 07/31/21 05:30 07/31/21 05:00 07/31/21 04:30 07/31/21 04:00 95 07/31/21 03:30 07/31/21 03:00 07/31/21 02:30 07/31/21 02:00 07/31/21 01:44 97 07/31/21 01:30 07/31/21 01:00 07/31/21 00:30 07/31/21 00:00 07/30/21 23:30 07/30/21 23:11 07/30/21 23:00 07/30/21 22:30 07/30/21 22:00 07/30/21 21:30 Laboratory Results 07/31/21 07/31/21 07/31/21 Range/Units 06:25 06:25 06:25 WBC 14.50 H (4.8-10.8) K/uL RBC 4.81 (4.7-6.1) M/uL Hgb 14.1 (14.0-18.0) g/dL POC Hgb (14.0-18.0) g/dl Hct 45.4 (42-52) % POC Hct (42-52) % MCV 94.4 (80-100) fL MCH 29.3 (25-34) pg MCHC 31.1 L (32-36) g/dL RDW Std Deviation 47.8 H (36.4-46.3) fL RDW Coeff of Kimi 13.8 (11.5-14.5) % Plt Count 167 (130-400) K/uL MPV 10.4 (7.4-10.4) fL Immature Gran % (Auto) 1.0 % Neut % (Auto) 85.7 % Lymph % (Auto) 7.1 % [place] % (Auto) 6.2 % Eos % (Auto) 0.0 % Baso % (Auto) 0.0 % Neut # (Auto) 12.42 H (1.4-6.5) K/uL Lymph # (Auto) 1.03 L (1.2-3.4) K/uL [place] # (Auto) 0.90 H (0.11-0.59) K/uL Eos # (Auto) 0.00 (0-0.5) K/uL Baso # (Auto) 0.00 (0-0.2) K/uL Immature Gran # (Auto) 0.15 H (0.00-0.02) K/uL Sample Site POC pH (7.35-7.45) POC pCO2 (35-46) mmHg POC pO2 (80-95) mmHg POC HCO3 (19-24) karin/L POC Total CO2 (24-31) mmol/L POC Base Excess (-9-1.8) karin/L ABG pH (Temp Correct) (7.35-7.45) ABG pCO2 (Temp Corrct (35-46) mmHg POC ABG pO2 at Pt Temp POC ABG O2 Sat (90-95) % Jv Test O2 Delivery Device POC O2 Rate POC FiO2 % Tidal Volume PEEP POC Sodium (135-144) mmol/L Sodium 143 (136-145) mmol/L POC Potassium (3.3-5.0) mmol/L Potassium 4.2 (3.5-5.1) mmol/L Chloride 104 (98-107) mmol/L Carbon Dioxide 36 H (21-32) mmol/L Anion Gap 3 (3-11) BUN 9 (6-23) mg/dl Creatinine 0.82 D (0.6-1.4) mg/dl Est Cr Clr Drug Dosing 113.5 ml/min Est GFR ( Amer) 126.4 ml/min Est GFR (Non-Af Amer) 109.1 ml/min BUN/Creatinine Ratio 11.0 (10-20) Glucose 122 H (70-99(Fasting)) mg/dl Estimat Average Glucose 120 mg/dl Hemoglobin A1c 5.8 H (4.5-5.6) % Calcium 7.7 L (8.5-10.1) mg/dl Phosphorus 2.0 L (2.5-4.9) mg/dl Magnesium 3.6 H (1.7-2.4) mg/dl C-Reactive Protein (0-0.5) mg/dl 07/31/21 07/31/21 07/30/21 Range/Units 03:32 03:19 17:51 WBC (4.8-10.8) K/uL RBC (4.7-6.1) M/uL Hgb (14.0-18.0) g/dL POC Hgb 14.3 13.9 L 15.0 (14.0-18.0) g/dl Hct (42-52) % POC Hct 42 41 L 44 (42-52) % MCV (80-100) fL MCH (25-34) pg MCHC (32-36) g/dL RDW Std Deviation (36.4-46.3) fL RDW Coeff of Kimi (11.5-14.5) % Plt Count (130-400) K/uL MPV (7.4-10.4) fL Immature Gran % (Auto) % Neut % (Auto) % Lymph % (Auto) % [place] % (Auto) % Eos % (Auto) % Baso % (Auto) % Neut # (Auto) (1.4-6.5) K/uL Lymph # (Auto) (1.2-3.4) K/uL [place] # (Auto) (0.11-0.59) K/uL Eos # (Auto) (0-0.5) K/uL Baso # (Auto) (0-0.2) K/uL Immature Gran # (Auto) (0.00-0.02) K/uL Sample Site R Radial R Radial R Radial POC pH 7.26 L 7.27 L 7.21 L (7.35-7.45) POC pCO2 86 H 85 H 94 H (35-46) mmHg POC pO2 106 H 97 H 72 L (80-95) mmHg POC HCO3 39 H 39 H 37 H (19-24) karin/L POC Total CO2 > 40 H* > 40 H* > 40 H* (24-31) mmol/L POC Base Excess 11.0 H 12.0 H 9.0 H (-9-1.8) karin/L ABG pH (Temp Correct) 7.315 L 7.271 L 7.206 L (7.35-7.45) ABG pCO2 (Temp Corrct 72 H 85 H 94 H (35-46) mmHg POC ABG pO2 at Pt Temp 85 97 72 POC ABG O2 Sat 97.0 H 96.0 H 89.0 L (90-95) % Jv Test NA Pass NA O2 Delivery Device Ventilator Ventilator POC O2 Rate 22 22 POC FiO2 50 50 % Tidal Volume 340 340 PEEP 3 3 POC Sodium 143 142 140 (135-144) mmol/L Sodium (136-145) mmol/L POC Potassium 3.9 3.9 4.2 (3.3-5.0) mmol/L Potassium (3.5-5.1) mmol/L Chloride (98-107) mmol/L Carbon Dioxide (21-32) mmol/L Anion Gap (3-11) BUN (6-23) mg/dl Creatinine (0.6-1.4) mg/dl Est Cr Clr Drug Dosing ml/min Est GFR ( Amer) ml/min Est GFR (Non-Af Amer) ml/min BUN/Creatinine Ratio (10-20) Glucose (70-99(Fasting)) mg/dl Estimat Average Glucose mg/dl Hemoglobin A1c (4.5-5.6) % Calcium (8.5-10.1) mg/dl Phosphorus (2.5-4.9) mg/dl Magnesium (1.7-2.4) mg/dl C-Reactive Protein (0-0.5) mg/dl 07/28/21 Range/Units 06:24 WBC (4.8-10.8) K/uL RBC (4.7-6.1) M/uL Hgb (14.0-18.0) g/dL POC Hgb (14.0-18.0) g/dl Hct (42-52) % POC Hct (42-52) % MCV (80-100) fL MCH (25-34) pg MCHC (32-36) g/dL RDW Std Deviation (36.4-46.3) fL RDW Coeff of Kimi (11.5-14.5) % Plt Count (130-400) K/uL MPV (7.4-10.4) fL Immature Gran % (Auto) % Neut % (Auto) % Lymph % (Auto) % [place] % (Auto) % Eos % (Auto) % Baso % (Auto) % Neut # (Auto) (1.4-6.5) K/uL Lymph # (Auto) (1.2-3.4) K/uL [place] # (Auto) (0.11-0.59) K/uL Eos # (Auto) (0-0.5) K/uL Baso # (Auto) (0-0.2) K/uL Immature Gran # (Auto) (0.00-0.02) K/uL Sample Site POC pH (7.35-7.45) POC pCO2 (35-46) mmHg POC pO2 (80-95) mmHg POC HCO3 (19-24) karin/L POC Total CO2 (24-31) mmol/L POC Base Excess (-9-1.8) karin/L ABG pH (Temp Correct) (7.35-7.45) ABG pCO2 (Temp Corrct (35-46) mmHg POC ABG pO2 at Pt Temp POC ABG O2 Sat (90-95) % Jv Test O2 Delivery Device POC O2 Rate POC FiO2 % Tidal Volume PEEP POC Sodium (135-144) mmol/L Sodium (136-145) mmol/L POC Potassium (3.3-5.0) mmol/L Potassium (3.5-5.1) mmol/L Chloride (98-107) mmol/L Carbon Dioxide (21-32) mmol/L Anion Gap (3-11) BUN (6-23) mg/dl Creatinine (0.6-1.4) mg/dl Est Cr Clr Drug Dosing ml/min Est GFR ( Amer) ml/min Est GFR (Non-Af Amer) ml/min BUN/Creatinine Ratio (10-20) Glucose (70-99(Fasting)) mg/dl Estimat Average Glucose mg/dl Hemoglobin A1c (4.5-5.6) % Calcium (8.5-10.1) mg/dl Phosphorus (2.5-4.9) mg/dl Magnesium (1.7-2.4) mg/dl C-Reactive Protein < 0.50 (0-0.5) mg/dl Coding Level of Care Code Critical Care 1st 30-74 mins Diagnoses Hypercapnic respiratory failure J96.92 Asthma with exacerbation J45.901 Asthma persistence: unspecified Asthma severity: unspecified severity Required emergent intubation Z98.890 Sinus tachycardia R00.0 COVID-19 U07.1 Hypoxia R09.02 (1) Asthma with exacerbation Asthma persistence: unspecified Asthma severity: unspecified severity Qualified Code(s): J45.901 - Unspecified asthma with (acute) exacerbation
[2021-07-31] MEDS ORDERED: POTASSIUM PHOS 3 MMOL/1 ML INFUSION IV STA (09:51)
[2021-07-31] MEDS ORDERED: POTASSIUM PHOSPHATE 18 MMOL in SODIUM CHLORIDE 0.9% 500 ML IV ONE (10:15)
[2021-07-31] MEDS ORDERED: PEPTAMEN INTENSE VHP 1.0 CAL 1,000 ML BAG OG SCH (11:00)
--- NOTE | 2021-07-31 11:20 | Hospitalist Progress Note ---
Date of Service July 31, 2021 Assessment & Plan (1) Asthma with exacerbation: Plan: severe persistent asthma with acute exacerbation long history of asthma, has not been hospitalized for years got worse over two days, quickly decompensated despite treatment intubated evening of 07/29/21 continue Solu Medrol 60mg TID albuterol nebulizers, budesonide 0.5 twice daily, Singulair, and Perforomist Zithromax 250mg IV daily for atypical coverage Magnesium IV per ICU high peak and plateau pressures today, CO2 remains high inspiratory and expiratory wheezing bilaterally, not much air flow (2) Hypercapnic respiratory failure: Plan: pCO2 still quite high in 80's high peak and plateau pressures (3) Hypoxia: Plan: due to asthma but majority of issue was hypercapnia CXR clear on 07/27 and 07/29 only on PEEP 3 and FiO2 45% (4) COVID-19: Plan: no evidence of viral pneumonia on CXR 07/27 and 07/29 stopped Remdesivir continue Solu Medrol for asthma exacerbation continue isolation D dimer normal at 260, no need for CTA chest continue Lovenox 40mg BID (5) Sinus tachycardia: Plan: due to stress, nebulizers no concern about PE with a D dimer of only 260 Plan: remain in ICU Admission and Anticipated Discharge Date Admission Date: July 28, 2021 Subjective patient still intubated and sedated airways are very tight, inspiratory wheezing bilaterally, not much air flow reviewed labs, CO2 80's on ABG Review of Systems Review of Systems: Unobtainable due to endotracheal tube Physical Exam Physical Exam: General: well developed, well nourished, sedated on ventilator Neck: supple, trachea midline, normal thyroid Lungs: bilateral inspiratory and expiratory wheezing, reduced air flow, symmetric chest movement, on ventilator Heart: tachycardic S1 and S2, no murmur, peripheral pulses normal, capillary refill normal, no edema Abdomen: soft, NT, slightly distended, + BS, no hepatomegaly, tympanic to percussion Extremities: normal in appearance, no cyanosis, no petechiae, strength was 5/5 bilaterally prior to paralytics Neuro: sedated, no focal motor deficits, CN II-XII intact Skin: warm, dry, no rash, normal turgor Psych: sedated Results & Data Results & Data ([facility]) Vital Signs (Past 12 Hours) Vital Signs Temp Pulse Pulse Resp BP BP Pulse Ox 07/31/21 10:49 125 H 22 90 07/31/21 10:00 37.9 C H 121 H 22 114/68 89 L 07/31/21 09:00 37.6 C H 126 H 22 117/73 89 L 07/31/21 08:29 123 H 22 89 L 07/31/21 08:00 37.2 C 120 H 22 125/70 89 L 07/31/21 07:00 113 H 22 131/75 93 07/31/21 06:30 110 H 22 129/76 93 07/31/21 06:00 35.2 C L 106 H 22 121/79 92 07/31/21 05:30 102 H 22 124/78 90 07/31/21 05:00 98 H 22 118/80 91 07/31/21 04:30 93 H 22 115/78 93 07/31/21 04:00 33.2 C L 90 22 127/79 93 07/31/21 03:30 93 H 22 96 07/31/21 03:00 33.2 C L 87 22 114/79 96 07/31/21 02:30 89 22 117/72 96 07/31/21 02:00 91 H 22 116/76 96 07/31/21 01:44 89 07/31/21 01:30 94 H 22 118/76 96 07/31/21 01:00 97 H 22 122/80 96 07/31/21 00:30 99 H 22 127/80 96 07/31/21 00:00 36.6 C 103 H 22 134/83 95 07/30/21 23:30 107 H 22 134/85 95 Pulse Ox 07/31/21 10:49 07/31/21 10:00 07/31/21 09:00 07/31/21 08:29 07/31/21 08:00 07/31/21 07:00 07/31/21 06:30 07/31/21 06:00 07/31/21 05:30 07/31/21 05:00 07/31/21 04:30 07/31/21 04:00 95 07/31/21 03:30 07/31/21 03:00 07/31/21 02:30 07/31/21 02:00 07/31/21 01:44 97 07/31/21 01:30 07/31/21 01:00 07/31/21 00:30 07/31/21 00:00 07/30/21 23:30 Laboratory Results Laboratory Results - last 24 hr 07/28/21 07/30/21 07/31/21 06:24 17:51 03:19 WBC RBC Hgb POC Hgb 15.0 13.9 L Hct POC Hct 44 41 L MCV MCH MCHC RDW Std Deviation RDW Coeff of Kimi Plt Count MPV Immature Gran % (Auto) Neut % (Auto) Lymph % (Auto) [place] % (Auto) Eos % (Auto) Baso % (Auto) Neut # (Auto) Lymph # (Auto) [place] # (Auto) Eos # (Auto) Baso # (Auto) Immature Gran # (Auto) Sample Site R Radial R Radial POC pH 7.21 L 7.27 L POC pCO2 94 H 85 H POC pO2 72 L 97 H POC HCO3 37 H 39 H POC Total CO2 > 40 H* > 40 H* POC Base Excess 9.0 H 12.0 H ABG pH (Temp Correct) 7.206 L 7.271 L ABG pCO2 (Temp Corrct 94 H 85 H POC ABG pO2 at Pt Temp 72 97 POC ABG O2 Sat 89.0 L 96.0 H Jv Test NA Pass O2 Delivery Device Ventilator POC O2 Rate 22 POC FiO2 50 Tidal Volume 340 PEEP 3 POC Sodium 140 142 Sodium POC Potassium 4.2 3.9 Potassium Chloride Carbon Dioxide Anion Gap BUN Creatinine Est Cr Clr Drug Dosing Est GFR ( Amer) Est GFR (Non-Af Amer) BUN/Creatinine Ratio Glucose Estimat Average Glucose Hemoglobin A1c Calcium Phosphorus Magnesium C-Reactive Protein < 0.50 07/31/21 07/31/21 07/31/21 03:32 06:25 06:25 WBC 14.50 H RBC 4.81 Hgb 14.1 POC Hgb 14.3 Hct 45.4 POC Hct 42 MCV 94.4 MCH 29.3 MCHC 31.1 L RDW Std Deviation 47.8 H RDW Coeff of Kimi 13.8 Plt Count 167 MPV 10.4 Immature Gran % (Auto) 1.0 Neut % (Auto) 85.7 Lymph % (Auto) 7.1 [place] % (Auto) 6.2 Eos % (Auto) 0.0 Baso % (Auto) 0.0 Neut # (Auto) 12.42 H Lymph # (Auto) 1.03 L [place] # (Auto) 0.90 H Eos # (Auto) 0.00 Baso # (Auto) 0.00 Immature Gran # (Auto) 0.15 H Sample Site R Radial POC pH 7.26 L POC pCO2 86 H POC pO2 106 H POC HCO3 39 H POC Total CO2 > 40 H* POC Base Excess 11.0 H ABG pH (Temp Correct) 7.315 L ABG pCO2 (Temp Corrct 72 H POC ABG pO2 at Pt Temp 85 POC ABG O2 Sat 97.0 H Jv Test NA O2 Delivery Device Ventilator POC O2 Rate 22 POC FiO2 50 Tidal Volume 340 PEEP 3 POC Sodium 143 Sodium POC Potassium 3.9 Potassium Chloride Carbon Dioxide Anion Gap BUN Creatinine Est Cr Clr Drug Dosing Est GFR ( Amer) Est GFR (Non-Af Amer) BUN/Creatinine Ratio Glucose Estimat Average Glucose 120 Hemoglobin A1c 5.8 H Calcium Phosphorus Magnesium C-Reactive Protein 07/31/21 06:25 WBC RBC Hgb POC Hgb Hct POC Hct MCV MCH MCHC RDW Std Deviation RDW Coeff of Kimi Plt Count MPV Immature Gran % (Auto) Neut % (Auto) Lymph % (Auto) [place] % (Auto) Eos % (Auto) Baso % (Auto) Neut # (Auto) Lymph # (Auto) [place] # (Auto) Eos # (Auto) Baso # (Auto) Immature Gran # (Auto) Sample Site POC pH POC pCO2 POC pO2 POC HCO3 POC Total CO2 POC Base Excess ABG pH (Temp Correct) ABG pCO2 (Temp Corrct POC ABG pO2 at Pt Temp POC ABG O2 Sat Jv Test O2 Delivery Device POC O2 Rate POC FiO2 Tidal Volume PEEP POC Sodium Sodium 143 POC Potassium Potassium 4.2 Chloride 104 Carbon Dioxide 36 H Anion Gap 3 BUN 9 Creatinine 0.82 D Est Cr Clr Drug Dosing 113.5 Est GFR ( Amer) 126.4 Est GFR (Non-Af Amer) 109.1 BUN/Creatinine Ratio 11.0 Glucose 122 H Estimat Average Glucose Hemoglobin A1c Calcium 7.7 L Phosphorus 2.0 L Magnesium 3.6 H C-Reactive Protein Medications Administered Current Inpatient Medications Albuterol (Albut/Ipratrop 3mg/0.5mg Neb 3 Ml Vial) 3 ml NEB Q4R ANIL; Protocol Stop: 08/29/21 03:59 Last Admin: 07/31/21 10:48 Dose: 3 ml Documented by: Budesonide (Budesonide 0.5 Mg/2 Ml Vial (Pulmicort)) 0.5 mg NEB BIDR [facility] Stop: 08/29/21 06:59 Last Admin: 07/31/21 08:28 Dose: 0.5 mg Documented by: Enoxaparin Sodium (Enoxaparin Inj 40 Mg/0.4 Ml Syr) 40 mg SQ Q24H [facility] Stop: 08/27/21 07:59 Last Admin: 07/31/21 07:38 Dose: 40 mg Documented by: Fentanyl Citrate (Fentanyl Bolus From Bag) 50 mcg IV Q60M PRN PRN Reason: Pain or Agitation Stop: 08/12/21 21:57 Last Admin: 07/29/21 22:29 Dose: 50 mcg Documented by: Formoterol Fumarate (Formoterol 20 Mcg/2 Ml Vial) 20 mcg NEB BIDR [facility] Stop: 08/28/21 23:14 Last Admin: 07/31/21 08:28 Dose: 20 mcg Documented by: Propofol (Diprivan) 1,000 mg in 100 mls @ 23.13 mls/hr IV .Q4H20M [facility]; Protocol Stop: 08/01/21 21:59 Last Admin: 07/31/21 08:17 Dose: 49.94 mcg/kg/min, 23.1 mls/hr Documented by: Fentanyl Citrate (Fentanyl Citrate) 2,500 mcg in 250 mls @ 20 mls/hr IV .[id number] [facility]; Protocol Stop: 08/12/21 21:59 Last Titration: 07/31/21 06:53 Dose: 200 mcg/hr, 20 mls/hr Documented by: Famotidine 20 mg/ Syringe 5 mls @ 2.5 mls/min IV Q12 [facility] Stop: 08/29/21 11:59 Last Admin: 07/31/21 08:36 Dose: 2.5 mls/min Documented by: Methylprednisolone 60 mg/ (Syringe) 0.96 mls @ 1.5 mls/min IV Q8H [facility] Stop: 08/30/21 13:59 Azithromycin 250 mg/ Dextrose 252.5 mls @ 125 mls/hr IV QAM [facility] Stop: 08/05/21 11:02 Potassium Phosphate 18 mmol/ (Sodium Chloride) 506 mls @ 88 mls/hr IV 1015 ONE Stop: 07/31/21 15:59 Last Admin: 07/31/21 10:26 Dose: 88 mls/hr Documented by: Insulin Aspart (Insulin Aspart Per Unit) 0 units SC Q4 [facility]; Protocol Stop: 08/29/21 15:59 Last Admin: 07/31/21 08:34 Dose: 1 units Documented by: Miscellaneous Information (Pharmacy Glycemic Mgmt Consult) 1 ea N/A UD PRN PRN Reason: Consult Stop: 08/29/21 14:41 Miscellaneous Information (Nursing To Pharmacy Communication) 1 ea N/A TODAY [facility] Stop: 08/30/21 11:29 Montelukast Sodium (Montelukast Sodium 10 Mg Tablet) 10 mg PO HS ANIL Stop: 08/29/21 20:59 Last Admin: 07/30/21 19:59 Dose: 10 mg Documented by: Multi-Ingredient Cream (Artificial Tears Op Oint 3.5 Gm Tube) 1 appln OP Q4H [facility] Stop: 08/29/21 00:00 Last Admin: 07/31/21 07:38 Dose: 1 appln Documented by: Multivitamins/Minerals (Multi Vit W/Minerals Liquid 15 Ml Udp) 15 ml NG QAM [facility] Stop: 08/31/21 08:59 Nutritional Formula (Peptamen Intense Vhp 1.0 [place] 1,000 Ml Bag) 1,000 ml [facility]; Protocol Stop: 08/30/21 10:59 Ondansetron HCl (Ondansetron Inj 2 Mg/Ml 2 Ml Vial) 4 mg IV Q6H PRN PRN Reason: Nausea Stop: 08/27/21 04:07 Propofol (Propofol Bolus From Bag) 20 mg IV Q5M PRN PRN Reason: Sedation Stop: 08/01/21 21:57 Last Admin: 07/29/21 22:00 Dose: 20 mg Documented by: Sterile Water (Tube Feeding Water Flush) 30 ml OG Q4H [facility] Stop: 08/30/21 10:59 PG Care Time/CCT Total # of Minutes Spent Total Time Spent with Patient: Total time spent is greater than 50% in coordination of care (as documented) at patient's floor/unit and/or counseling patient: Coding Level of Care Code 94014 Subseq Hosp Care Lvl 2 Diagnoses Asthma with exacerbation J45.901 Asthma persistence: unspecified Asthma severity: unspecified severity Hypercapnic respiratory failure J96.92 Hypoxia R09.02 COVID-19 U07.1 Sinus tachycardia R00.0 (1) Asthma with exacerbation Asthma persistence: unspecified Asthma severity: unspecified severity Qualified Code(s): J45.901 - Unspecified asthma with (acute) exacerbation
[2021-07-31] MEDS ORDERED: Nursing to Pharmacy Communication SCH (11:30)
[2021-07-31] MEDS: TUBE FEEDING WATER FLUSH OG SCH ×3 (12:05→19:53)
[2021-07-31] MEDS: fentaNYL citrate 2,500 MCG/250 ML BAG IV SCH ×3 (12:06→20:41)
--- NOTE | 2021-07-31 13:22 | Pharmacy Report ---
Pharmacy Glycemic Short Note 2 - Date of Service July 31, 2021 - Glycemic Short BSG Results (Last 24 hours): 07/31/21 06:25 Glucose 122 H OUTPATIENT ANTIDIABETIC REGIMEN: * n/A * a1C 5.8% ASSESSMENT: 07/31 * A1c 5.8%, indicates pre-diabetes. BSGs trended downward with addition of novolog and 10 units of lantus. Will hold basal insulin today and continue with ICU protocol for hyperglycemia. Steroids were tapered to solumedrol 60 mg q8H and TF were started at [facility]. Continue to monitor for hyper/hypoglycemia. 07/30 * 41 year old admitted with COVID-19 infection/asthma exacerbation. Currently being treated for asthma exacerbation with methylprednisolone 80 mg q8H, currently intubated, sedated with fentanyl,propofol, also on ketamine infusion. BSGs appear to be elevated with steroid use, not on outpatient diabetes medications per facility records. Will attempt to use ICU protocol for hyperglycemia with novolog scale and reduced dose of lantus as patient is NPO. If BSGs unable to be controlled will start insulin infusion PLAN FOR INPATIENT GLYCEMIC CONTROL: * Hold outpatient oral diabetes medications * Basal insulin * hold * Bolus insulin * NovoLog per scale ACHS or Q4hrs while NPO * Per protocol scale * Nutritional / Prandial insulin per carb ratio of 1 unit per 14 grams CHO consumed
[2021-07-31] MEDS: methylPREDNISolone 60 MG in SYRINGE 0 ML IV SCH ×2 (13:58→21:00)
[2021-07-31] MEDS: PROPOFOL BOLUS FROM BAG IV PRN ×2 (19:48→20:19)
[2021-07-31] MEDS: MONTELUKAST SODIUM 10 MG TABLET PO SCH (19:53)
[2021-08-01] MEDS: TUBE FEEDING WATER FLUSH OG SCH ×7 (00:11→23:13)
[2021-08-01] MEDS: INSULIN ASPART PER UNIT SC SCH ×6 (00:11→20:03)
[2021-08-01] MEDS: fentaNYL citrate 2,500 MCG/250 ML BAG IV SCH ×8 (00:11→23:10)
[2021-08-01] MEDS: ARTIFICIAL TEARS OP OINT 3.5 GM TUBE OP SCH ×7 (00:11→23:53)
[2021-08-01] MEDS: PROPOFOL BOLUS FROM BAG IV PRN ×3 (00:12→23:11)
[2021-08-01] MEDS: propofoL 1,000 MG/100 ML VIAL IV SCH ×12 (01:22→20:48)
[2021-08-01] MEDS: ALBUT/IPRATROP 3MG/0.5MG NEB 3 ML VIAL NEB SCH ×6 (03:58→23:21)
[2021-08-01 04:07] LABS: iSTAT Allen Test Pass; iSTAT Arterial Blood Gas HCO3 40 meg/L (19-24); iSTAT Arterial Blood Gas pCO2 76 mmHg (35-46); iSTAT Arterial Blood Gas pH 7.33 (7.35-7.45); iSTAT Arterial Blood Gas pO2 77 mmHg (80-95); iSTAT Carbon Dioxide > 40 mmol/L (24-31); iSTAT FiO2 55 %; iSTAT Site L Radial
[2021-08-01] MEDS: methylPREDNISolone 60 MG in SYRINGE 0 ML IV SCH ×3 (05:40→21:32)
[2021-08-01 06:50] LABS: Hematocrit (blood only) 44.7 % (42-52); Hemoglobin 13.7 g/dL (14.0-18.0); Mean Corpuscular Hemoglobin 29.8 pg (25-34); Mean Corpuscular Hgb Conc 30.6 g/dL (32-36); Mean Corpuscular Volume 97.2 fL (80-100); Mean Platelet Volume 10.9 fL (7.4-10.4); Platelet Count 174 K/uL (130-400); RDW Coefficient of Variation 13.6 % (11.5-14.5); RDW Standard Deviation 48.3 fL (36.4-46.3); White Blood Count 16.43 K/uL (4.8-10.8)
[2021-08-01] MEDS: ENOXAPARIN INJ 40 MG/0.4 ML SYR SQ SCH (07:11)
[2021-08-01 07:16] LABS: Immature Granulocytes # (auto) 0.08 K/uL (0.00-0.02); Immature Granulocytes % (auto) 0.5 %; Monocytes # (auto) 1.45 K/uL (0.11-0.59); Monocytes % (auto) 8.8 %; Neutrophils % (auto) 79.7 %
[2021-08-01 07:19] LABS: BUN Creatinine Ratio 17.9 (10-20); Calcium 7.9 mg/dl (8.5-10.1); Creatinine Clr Calc Pharmacy 75.7 ml/min; Est GFR (African American) 83.4 ml/min; Magnesium 3.8 mg/dl (1.7-2.4); Phosphorus 2.9 mg/dl (2.5-4.9); Potassium 4.5 mmol/L (3.5-5.1)
[2021-08-01] MEDS: BUDESONIDE 0.5 MG/2 ML VIAL (PULMICORT) NEB SCH ×2 (07:54→19:38)
[2021-08-01] MEDS: AZITHROMYCIN 250 MG in DEXTROSE 5% 250 ML IV SCH (08:10)
[2021-08-01] MEDS: MULTI VIT W/MINERALS LIQUID 15 ML UDP NG SCH (08:10)
--- NOTE | 2021-08-01 08:36 | XRay Report ---
XR chest 1V portable CLINICAL HISTORY: Respiratory failure. COMPARISON STUDY: Chest radiograph July 31, 2021. FINDINGS: Tip of endotracheal tube is 3.5 cm above the tono. Tip of nasogastric tube is below the l ower aspect of this image but at least within the body of the stomach There is no pneumothorax or ple ural effusion. Cardiac size is normal. Mediastinal contours are normal. There may be right infrahilar airspace opacity. IMPRESSION: 1. Satisfactory positioning of the endotracheal tube. 2. Possible right infrahilar airspace opacity. ACT 112: Negative or not required by law. Electronically signed by: Trevin Berry M.D. 08/01/2021 8:35 AM
[2021-08-01] MEDS: FORMOTEROL 20 MCG/2 ML VIAL NEB SCH ×2 (09:08→20:58)
--- NOTE | 2021-08-01 09:50 | Hospitalist Progress Note ---
Date of Service August 01, 2021 Assessment & Plan (1) Asthma with exacerbation: Plan: severe persistent asthma with acute exacerbation long history of asthma, has not been hospitalized for years got worse over two days, quickly decompensated despite treatment intubated evening of 07/29/21 continue Solu Medrol 60mg TID albuterol nebulizers, budesonide 0.5 twice daily, Singulair, and Perforomist Zithromax 250mg IV daily for atypical coverage Magnesium IV per ICU (mag level is 3.8 today) high peak and plateau pressures today, CO2 remains high at 76 inspiratory and expiratory wheezing bilaterally, has a little more air flow today on exam (2) Hypercapnic respiratory failure: Plan: pCO2 still quite high in 70's but improving slightly compensatory metabolic alkalosis, HCO3 is 37 (3) Hypoxia: Plan: due to asthma but majority of issue was hypercapnia CXR clear on 07/27 and 07/29, might have a slight infiltrate on right on 08/01 only on PEEP 3 and FiO2 55% (4) COVID-19: Plan: stopped Remdesivir continue Solu Medrol for asthma exacerbation continue isolation D dimer normal at 260, no need for CTA chest continue Lovenox 40mg BID CXR 08/01 with possible right sided infiltrate? will monitor with daily CXR (5) Sinus tachycardia: Plan: due to stress, nebulizers no concern about PE with a D dimer of only 260 Plan: remain in ICU Admission and Anticipated Discharge Date Admission Date: July 28, 2021 Subjective patient remains intubated and sedated ABG: CO2 is 76 with secondary metabolic alkalosis WBC 16k on Solu Medrol Review of Systems Review of Systems: Unobtainable due to cognitive status and Unobtainable due to endotracheal tube Physical Exam Physical Exam: General: well developed, well nourished, sedated on ventilator Neck: supple, trachea midline, normal thyroid Lungs: bilateral inspiratory and expiratory wheezing, reduced air flow, symmetric chest movement, on ventilator Heart: tachycardic S1 and S2, no murmur, peripheral pulses normal, capillary refill normal, no edema Abdomen: soft, NT, slightly distended, + BS, no hepatomegaly, tympanic to percussion Extremities: normal in appearance, no cyanosis, no petechiae, strength was 5/5 bilaterally prior to paralytics Neuro: sedated, no focal motor deficits, CN II-XII intact Skin: warm, dry, no rash, normal turgor Psych: sedated Results & Data Results & Data ([facility]) Vital Signs (Past 12 Hours) Vital Signs Temp Pulse Pulse Resp BP Pulse Ox Pulse Ox 08/01/21 09:09 113 H 22 89 L 08/01/21 09:00 36.9 C 08/01/21 08:30 119 H 22 138/80 88 L 08/01/21 08:00 108 H 134/82 91 08/01/21 07:55 107 H 22 91 08/01/21 07:46 107 H 22 91 08/01/21 07:30 109 H 22 138/82 91 08/01/21 07:19 108 H 08/01/21 07:00 36.9 C 109 H 22 131/78 92 08/01/21 06:30 109 H 22 92 08/01/21 06:00 110 H 22 131/76 91 08/01/21 05:30 36.6 C 109 H 22 128/83 94 08/01/21 05:00 113 H 22 132/78 92 08/01/21 04:30 112 H 22 136/81 93 08/01/21 04:00 102 H 22 124/75 95 95 08/01/21 03:50 104 H 23 92 08/01/21 03:30 36.8 C 105 H 22 127/75 95 08/01/21 03:00 105 H 22 123/78 95 08/01/21 02:30 104 H 22 124/76 95 08/01/21 02:00 105 H 22 127/77 94 08/01/21 01:30 106 H 22 129/77 94 08/01/21 01:00 110 H 22 128/79 93 08/01/21 00:30 110 H 22 128/81 92 08/01/21 00:00 113 H 22 132/78 92 07/31/21 23:30 37.0 C 115 H 22 128/79 91 07/31/21 23:00 116 H 22 135/78 91 07/31/21 22:36 110 H 22 92 07/31/21 22:30 107 H 22 128/74 92 07/31/21 22:00 110 H 22 132/75 91 Laboratory Results Laboratory Results - last 24 hr 07/30/21 07/30/21 07/30/21 16:13 19:54 23:31 WBC RBC Hgb Hct MCV MCH MCHC RDW Std Deviation RDW Coeff of Kimi Plt Count MPV Immature Gran % (Auto) Neut % (Auto) Lymph % (Auto) Mccormick % (Auto) Eos % (Auto) Baso % (Auto) Neut # (Auto) Lymph # (Auto) Mccormick # (Auto) Eos # (Auto) Baso # (Auto) Immature Gran # (Auto) Sample Site POC pH POC pCO2 POC pO2 POC HCO3 POC Total CO2 POC Base Excess POC ABG O2 Sat Jv Test O2 Delivery Device POC O2 Rate POC FiO2 Tidal Volume PEEP Sodium Potassium Chloride Carbon Dioxide Anion Gap BUN Creatinine Est Cr Clr Drug Dosing Est GFR ( Amer) Est GFR (Non-Af Amer) BUN/Creatinine Ratio Glucose POC Glucose 191 H 143 H 136 H Calcium Phosphorus Magnesium 07/31/21 07/31/21 07/31/21 03:55 12:13 16:04 WBC RBC Hgb Hct MCV MCH MCHC RDW Std Deviation RDW Coeff of Kimi Plt Count MPV Immature Gran % (Auto) Neut % (Auto) Lymph % (Auto) Mccormick % (Auto) Eos % (Auto) Baso % (Auto) Neut # (Auto) Lymph # (Auto) Mccormick # (Auto) Eos # (Auto) Baso # (Auto) Immature Gran # (Auto) Sample Site POC pH POC pCO2 POC pO2 POC HCO3 POC Total CO2 POC Base Excess POC ABG O2 Sat Jv Test O2 Delivery Device POC O2 Rate POC FiO2 Tidal Volume PEEP Sodium Potassium Chloride Carbon Dioxide Anion Gap BUN Creatinine Est Cr Clr Drug Dosing Est GFR ( Amer) Est GFR (Non-Af Amer) BUN/Creatinine Ratio Glucose POC Glucose 123 H 100 H 132 H Calcium Phosphorus Magnesium 07/31/21 08/01/21 08/01/21 19:51 00:07 03:40 WBC RBC Hgb Hct MCV MCH MCHC RDW Std Deviation RDW Coeff of Kimi Plt Count MPV Immature Gran % (Auto) Neut % (Auto) Lymph % (Auto) Mccormick % (Auto) Eos % (Auto) Baso % (Auto) Neut # (Auto) Lymph # (Auto) Mccormick # (Auto) Eos # (Auto) Baso # (Auto) Immature Gran # (Auto) Sample Site POC pH POC pCO2 POC pO2 POC HCO3 POC Total CO2 POC Base Excess POC ABG O2 Sat Jv Test O2 Delivery Device POC O2 Rate POC FiO2 Tidal Volume PEEP Sodium Potassium Chloride Carbon Dioxide Anion Gap BUN Creatinine Est Cr Clr Drug Dosing Est GFR ( Amer) Est GFR (Non-Af Amer) BUN/Creatinine Ratio Glucose POC Glucose 134 H 136 H 125 H Calcium Phosphorus Magnesium 08/01/21 08/01/21 08/01/21 03:52 06:07 06:07 WBC 16.43 H RBC 4.60 L Hgb 13.7 L Hct 44.7 MCV 97.2 MCH 29.8 MCHC 30.6 L RDW Std Deviation 48.3 H RDW Coeff of Kimi 13.6 Plt Count 174 MPV 10.9 H Immature Gran % (Auto) 0.5 Neut % (Auto) 79.7 Lymph % (Auto) 11.0 Mccormick % (Auto) 8.8 Eos % (Auto) 0.0 Baso % (Auto) 0.0 Neut # (Auto) 13.10 H Lymph # (Auto) 1.80 Mccormick # (Auto) 1.45 H Eos # (Auto) 0.00 Baso # (Auto) 0.00 Immature Gran # (Auto) 0.08 H Sample Site L Radial POC pH 7.33 L POC pCO2 76 H POC pO2 77 L POC HCO3 40 H POC Total CO2 > 40 H* POC Base Excess 14.0 H POC ABG O2 Sat 93.0 Jv Test Pass O2 Delivery Device Ventilator POC O2 Rate 22 POC FiO2 55 Tidal Volume 340 PEEP 3 Sodium 138 Potassium 4.5 Chloride 100 Carbon Dioxide 37 H Anion Gap 1 L BUN 22 Creatinine 1.23 D Est Cr Clr Drug Dosing 75.7 Est GFR ( Amer) 83.4 Est GFR (Non-Af Amer) 72.0 BUN/Creatinine Ratio 17.9 Glucose 130 H POC Glucose Calcium 7.9 L Phosphorus 2.9 Magnesium 3.8 H 08/01/21 07:41 WBC RBC Hgb Hct MCV MCH MCHC RDW Std Deviation RDW Coeff of Kimi Plt Count MPV Immature Gran % (Auto) Neut % (Auto) Lymph % (Auto) Mccormick % (Auto) Eos % (Auto) Baso % (Auto) Neut # (Auto) Lymph # (Auto) Mccormick # (Auto) Eos # (Auto) Baso # (Auto) Immature Gran # (Auto) Sample Site POC pH POC pCO2 POC pO2 POC HCO3 POC Total CO2 POC Base Excess POC ABG O2 Sat Jv Test O2 Delivery Device POC O2 Rate POC FiO2 Tidal Volume PEEP Sodium Potassium Chloride Carbon Dioxide Anion Gap BUN Creatinine Est Cr Clr Drug Dosing Est GFR ( Amer) Est GFR (Non-Af Amer) BUN/Creatinine Ratio Glucose POC Glucose 127 H Calcium Phosphorus Magnesium Medications Administered Current Inpatient Medications Albuterol (Albut/Ipratrop 3mg/0.5mg Neb 3 Ml Vial) 3 ml NEB Q4R [facility]; Protocol Stop: 08/29/21 03:59 Last Admin: 08/01/21 07:54 Dose: 3 ml Documented by: Budesonide (Budesonide 0.5 Mg/2 Ml Vial (Pulmicort)) 0.5 mg NEB BIDR [facility] Stop: 08/29/21 06:59 Last Admin: 08/01/21 07:54 Dose: 0.5 mg Documented by: Enoxaparin Sodium (Enoxaparin Inj 40 Mg/0.4 Ml Syr) 40 mg SQ Q24H [facility] Stop: 08/27/21 07:59 Last Admin: 08/01/21 07:11 Dose: 40 mg Documented by: Fentanyl Citrate (Fentanyl Bolus From Bag) 50 mcg IV Q60M PRN PRN Reason: Pain or Agitation Stop: 08/12/21 21:57 Last Admin: 08/01/21 03:15 Dose: 50 mcg Documented by: Formoterol Fumarate (Formoterol 20 Mcg/2 Ml Vial) 20 mcg NEB BIDR [facility] Stop: 08/28/21 23:14 Last Admin: 08/01/21 09:08 Dose: 20 mcg Documented by: Propofol (Diprivan) 1,000 mg in 100 mls @ 23.13 mls/hr IV .Q4H20M [facility]; Protocol Stop: 08/01/21 21:59 Last Admin: 08/01/21 05:40 Dose: 49.94 mcg/kg/min, 23.1 mls/hr Documented by: Fentanyl Citrate (Fentanyl Citrate) 2,500 mcg in 250 mls @ 25 mls/hr IV .Q10H [facility]; Protocol Stop: 08/12/21 21:59 Last Admin: 08/01/21 00:11 Dose: 250 mcg/hr, 25 mls/hr Documented by: Famotidine 20 mg/ Syringe 5 mls @ 2.5 mls/min IV Q12 [facility] Stop: 08/29/21 11:59 Last Admin: 07/31/21 20:12 Dose: 2.5 mls/min Documented by: Methylprednisolone 60 mg/ (Syringe) 0.96 mls @ 1.5 mls/min IV Q8H [facility] Stop: 08/30/21 13:59 Last Admin: 08/01/21 05:40 Dose: 1.5 mls/min Documented by: Azithromycin 250 mg/ Dextrose 252.5 mls @ 125 mls/hr IV QAM [facility] Stop: 08/05/21 11:02 Last Admin: 08/01/21 08:10 Dose: 125 mls/hr Documented by: Insulin Aspart (Insulin Aspart Per Unit) 0 units SC Q4 [facility]; Protocol Stop: 08/29/21 15:59 Last Admin: 08/01/21 08:23 Dose: 1 units Documented by: Miscellaneous Information (Pharmacy Glycemic Mgmt Consult) 1 ea N/A UD PRN PRN Reason: Consult Stop: 08/29/21 14:41 Montelukast Sodium (Montelukast Sodium 10 Mg Tablet) 10 mg PO HS [facility] Stop: 08/29/21 20:59 Last Admin: 07/31/21 19:53 Dose: 10 mg Documented by: Multi-Ingredient Cream (Artificial Tears Op Oint 3.5 Gm Tube) 1 appln OP Q4H [facility] Stop: 08/29/21 00:00 Last Admin: 08/01/21 07:11 Dose: 1 appln Documented by: Multivitamins/Minerals (Multi Vit W/Minerals Liquid 15 Ml Udp) [facility] [place] Stop: 08/31/21 08:59 Last Admin: 08/01/21 08:10 Dose: 15 ml Documented by: Nutritional Formula (Peptamen Intense Vhp 1.0 [place] 1,000 Ml Bag) 1,000 ml OG UD [facility]; Protocol Stop: 08/30/21 10:59 Last Admin: 07/31/21 12:06 Dose: 1,000 ml Documented by: Ondansetron HCl (Ondansetron Inj 2 Mg/Ml 2 Ml Vial) 4 mg IV Q6H PRN PRN Reason: Nausea Stop: 08/27/21 04:07 Propofol (Propofol Bolus From Bag) 20 mg IV Q5M PRN PRN Reason: Sedation Stop: 08/01/21 21:57 Last Admin: 08/01/21 03:15 Dose: 20 mg Documented by: Sterile Water (Tube Feeding Water Flush) 30 ml OG Q4H [facility]IL Stop: 08/30/21 10:59 Last Admin: 08/01/21 07:10 Dose: 30 ml Documented by: PG Care Time/CCT Total # of Minutes Spent Total Time Spent with Patient: Total time spent is greater than 50% in coordination of care (as documented) at patient's floor/unit and/or counseling patient: Coding Level of Care Code 83248 Subseq Hosp Care Lvl 2 Diagnoses Asthma with exacerbation J45.901 Asthma persistence: unspecified Asthma severity: unspecified severity Hypercapnic respiratory failure J96.92 Hypoxia R09.02 COVID-19 U07.1 Sinus tachycardia R00.0 (1) Asthma with exacerbation Asthma persistence: unspecified Asthma severity: unspecified severity Qualified Code(s): J45.901 - Unspecified asthma with (acute) exacerbation
--- NOTE | 2021-08-01 10:11 | Critical Care Progress Note ---
Date of Service August 01, 2021 Assessment & Plan (1) Hypercapnic respiratory failure: Plan: Reason Critically Ill: 41-year-old male from long-term with history of poorly controlled asthma presents to the ICU with acute asthma exacerbation and worsening hypercapnic respiratory failure requiring emergent intubation. Neuro - Sedation: Propofol, fentanyl drips, wean sedation to RASS -1 to -2 if possible Cardiac - Tachycardiasinus tachycardia with rate 130s to 140s following albuterol nebulizers. Would hold on beta-salvador for now given patient's asthma exacerbation. Chest x-ray without cardiopulmonary congestion or cardiomegaly. Continue to monitor on telemetry for now. Respiratory - Acute hypercapnic respiratory failure secondary to asthma exacerbationpatient was admitted on 07/28/2021 with acute asthma exacerbation. This evening failed BiPAP trial and had received hour-long neb. Emergently intubated due to worsening respiratory acidosis. Patient was COVID-19 positive on PCR but is not significantly hypoxic at this time chest x-ray is clear without evidence of viral pneumonia. He did receive 1 dose remdesivir -Solu-Medrol decreased to 60 mg 3 times daily -Give additional 3 g IV mag -DuoNeb scheduled every 4 hours -Started on budesonide 0.5 twice daily, Singulair, and Perforomist -Continuous monitoring pulse ox and end-tidal CO2 GI - N.p.o. OG tube to low intermittent suction RENAL/LYTES - Creatinine stable, no electrolyte abnormalities Monitor routine BMPs - Foleystrict I's and O's ENDO - No history of diabetes or thyroid disease ICU hyperglycemic protocol HEME - H&H stable, monitor routine CBC ID - Azithromycin to IV. COVID-19patient tested + 07/27/2021. However, CRP and D-dimer within normal limits and no active disease on chest x-ray. Is thought respiratory failure related to asthma exacerbation. -Patient did receive 1 dose remdesivir but was discontinued after first dose. -He is currently on Solu-Medrol in favor of dexamethasone due to asthma exacerbation LINES/IV ACCESS - Peripheral IVs DVT PROPHYLAXIS - Dulce Brush I have personally spent 40 minutes of critical care time in the direct management of this patient. This is a life/limb threatening event. This includes time spent evaluating patient, direct bedside care, chart review, placing orders, interpretation of diagnostic studies, discussion with consultants, patient, and family members, as well as other required patient management activities. This time is exclusive of all separately billable procedures, and teaching time and separate from and in addition to any other critical care service time. (2) Asthma with exacerbation: (3) Required emergent intubation: (4) Sinus tachycardia: (5) COVID-19: (6) Hypoxia: Admission and Anticipated Discharge Date Admission Date: July 28, 2021 Subjective No overnight events Review of Systems Review of Systems: Unobtainable due to endotracheal tube Physical Exam Physical Exam: General: Sedated. GCS: 3 T Skin: Warm, dry, Head: Atraumatic Ears, nose, mouth and throat: airway obscured by endotracheal tube Cardiovascular: Normal peripheral perfusion Respiratory: Ventilator settings reviewed Gastrointestinal: Non distended Musculoskeletal: No deformity Results & Data Results & Data ([facility]) Vital Signs (Past 12 Hours) Vital Signs Temp Pulse Pulse Resp BP Pulse Ox Pulse Ox 08/01/21 09:09 113 H 22 89 L 08/01/21 09:00 36.9 C 08/01/21 08:30 119 H 22 138/80 88 L 08/01/21 08:00 108 H 134/82 91 08/01/21 07:55 107 H 22 91 08/01/21 07:46 107 H 22 91 08/01/21 07:30 109 H 22 138/82 91 08/01/21 07:19 108 H 08/01/21 07:00 36.9 C 109 H 22 131/78 92 08/01/21 06:30 109 H 22 92 08/01/21 06:00 110 H 22 131/76 91 08/01/21 05:30 36.6 C 109 H 22 128/83 94 08/01/21 05:00 113 H 22 132/78 92 08/01/21 04:30 112 H 22 136/81 93 08/01/21 04:00 102 H 22 124/75 95 95 08/01/21 03:50 104 H 23 92 08/01/21 03:30 36.8 C 105 H 22 127/75 95 08/01/21 03:00 105 H 22 123/78 95 08/01/21 02:30 104 H 22 124/76 95 08/01/21 02:00 105 H 22 127/77 94 08/01/21 01:30 106 H 22 129/77 94 08/01/21 01:00 110 H 22 128/79 93 08/01/21 00:30 110 H 22 128/81 92 08/01/21 00:00 113 H 22 132/78 92 07/31/21 23:30 37.0 C 115 H 22 128/79 91 07/31/21 23:00 116 H 22 135/78 91 07/31/21 22:36 110 H 22 92 07/31/21 22:30 107 H 22 128/74 92 Critical Care Results & Data Vital Signs (Past 12 Hours) Vital Signs Temp Pulse Pulse Resp BP Pulse Ox Pulse Ox 08/01/21 09:09 113 H 22 89 L 08/01/21 09:00 36.9 C 08/01/21 08:30 119 H 22 138/80 88 L 08/01/21 08:00 108 H 134/82 91 08/01/21 07:55 107 H 22 91 08/01/21 07:46 107 H 22 91 08/01/21 07:30 109 H 22 138/82 91 08/01/21 07:19 108 H 08/01/21 07:00 36.9 C 109 H 22 131/78 92 08/01/21 06:30 109 H 22 92 08/01/21 06:00 110 H 22 131/76 91 08/01/21 05:30 36.6 C 109 H 22 128/83 94 08/01/21 05:00 113 H 22 132/78 92 08/01/21 04:30 112 H 22 136/81 93 08/01/21 04:00 102 H 22 124/75 95 95 08/01/21 03:50 104 H 23 92 08/01/21 03:30 36.8 C 105 H 22 127/75 95 08/01/21 03:00 105 H 22 123/78 95 08/01/21 02:30 104 H 22 124/76 95 08/01/21 02:00 105 H 22 127/77 94 08/01/21 01:30 106 H 22 129/77 94 08/01/21 01:00 110 H 22 128/79 93 08/01/21 00:30 110 H 22 128/81 92 08/01/21 00:00 113 H 22 132/78 92 07/31/21 23:30 37.0 C 115 H 22 128/79 91 07/31/21 23:00 116 H 22 135/78 91 07/31/21 22:36 110 H 22 92 07/31/21 22:30 107 H 22 128/74 92 Lab & Micro Results (Past 24 Hours) RBC 4.60 M/uL (4.7-6.1) L 08/01/21 WBC 16.43 K/uL (4.8-10.8) H 08/01/21 Hgb 13.7 g/dL (14.0-18.0) L 08/01/21 Hct 44.7 % (42-52) 08/01/21 MCV 97.2 fL (80-100) 08/01/21 MCH 29.8 pg (25-34) 08/01/21 MCHC 30.6 g/dL (32-36) L 08/01/21 RDW Standard Deviation 48.3 fL (36.4-46.3) H 08/01/21 RDW Coefficient of Variation 13.6 % (11.5-14.5) 08/01/21 Plt Count 174 K/uL (130-400) 08/01/21 MPV 10.9 fL (7.4-10.4) H 08/01/21 Neutrophils (%) (Auto) 79.7 % 08/01/21 Lymphocytes (%) (Auto) 11.0 % 08/01/21 Monocytes # (Auto) 1.45 K/uL (0.11-0.59) H 08/01/21 Eosinophils # (Auto) 0.00 K/uL (0-0.5) 08/01/21 Immature Granulocyte % (Auto) 0.5 % 08/01/21 Neutrophils # (Auto) 13.10 K/uL (1.4-6.5) H 08/01/21 Lymphocytes # (Auto) 1.80 K/uL (1.2-3.4) 08/01/21 Monocytes # (Auto) 1.45 K/uL (0.11-0.59) H 08/01/21 Eosinophils # (Auto) 0.00 K/uL (0-0.5) 08/01/21 Basophils # (Auto) 0.00 K/uL (0-0.2) 08/01/21 Immature Granulocyte # (Auto) 0.08 K/uL (0.00-0.02) H 08/01/21 Na 138 mmol/L (136-145) 08/01/21 K 4.5 mmol/L (3.5-5.1) 08/01/21 Cl 100 mmol/L (98-107) 08/01/21 CO2 37 mmol/L (21-32) H 08/01/21 Anion Gap 1 (3-11) L 08/01/21 BUN 22 mg/dl (6-23) 08/01/21 Creatinine 1.23 mg/dl (0.6-1.4) 08/01/21 Estimated GFR ( Amer) 83.4 ml/min 08/01/21 Estimated GFR (Non-Af Amer) 72.0 ml/min 08/01/21 BUN/Creatinine Ratio 17.9 (10-20) 08/01/21 Glu 130 mg/dl (70-99(Fasting)) H 08/01/21 Ca 7.9 mg/dl (8.5-10.1) L 08/01/21 Phosphorus Level 2.9 mg/dl (2.5-4.9) 08/01/21 Mg 3.8 mg/dl (1.7-2.4) H 08/01/21 06:07 08/01/21 Calcium Level 7.9 mg/dl (8.5-10.1) L 08/01/21 06:07 08/01/21 Jv Test Pass 08/01/21 03:52 08/01/21 Diagnostic Findings (Past 24 Hours) Chest X-Ray 08/01/21 07:00 XR chest 1V portable CLINICAL HISTORY: Respiratory failure. COMPARISON STUDY: Chest radiograph July 31, 2021. FINDINGS: Tip of endotracheal tube is 3.5 cm above the tono. Tip of nasogastric tube is below the lower aspect of this image but at least within the body of the stomach There is no pneumothorax or pleural effusion. Cardiac size is normal. Mediastinal contours are normal. There may be right infrahilar airspace opacity. IMPRESSION: 1. Satisfactory positioning of the endotracheal tube. 2. Possible right infrahilar airspace opacity. ACT 112: Negative or not required by law. Electronically signed by: Trevin Berry M.D. 08/01/2021 8:35 AM I & O Totals 24 Hours 01/08/01/21 08/02/21 06:59 06:59 06:59 Intake Total 5315.595 / 5315.595 2481.445 / 2481.445 Output Total 2150 / 2150 900 / 900 200 / 200 Balance 3165.595 / 3165.595 1581.445 / 1581.445 -200 / -200 Cumulative 07/27/21 21:47 thru 08/01/21 09:00 Intake Total 48085.796 Output Total 8052 Balance 3277.796 RT Ventilator Mngmt (Last Documented) Ventilator Ordered Settings Ventilator Support Mode Assist Control 08/01/21 10:00 Respiratory Rate 22 08/01/21 09:09 Ventilator Tidal Volume 340 08/01/21 07:46 Setting Minute Ventilation 7.4 08/01/21 07:46 Positive End Expiratory 3 08/01/21 07:46 Pressure Fraction of Inspired Oxygen 55 08/01/21 10:00 Machine Comment POST ABG 07/31/21 04:16 Ventilator - PT Measurements Respiratory Rate 22 Exhaled Tidal Volume 341 Minute Ventilation 7.4 Peak Inspiratory Airway 35 Pressure Plateau Pressure 28.4 Respiratory Cycle Inspiratory: 1:2.0 Expiratory Ratio Inspiratory Phase Time 0.9 End-Tidal CO2 52 Static Lung Compliance 13.43 Dynamic Lung Compliance 10.66 Normal Static Lung Compliance 41.00 Patient Measurements Comment MD and ME[employer]PER[employer] aware of high PIPs Coding Level of Care Code Critical Care 1st 30-74 mins Diagnoses Hypercapnic respiratory failure J96.92 Asthma with exacerbation J45.901 Asthma persistence: unspecified Asthma severity: unspecified severity Required emergent intubation Z98.890 Sinus tachycardia R00.0 COVID-19 U07.1 Hypoxia R09.02 (1) Asthma with exacerbation Asthma persistence: unspecified Asthma severity: unspecified severity Qualified Code(s): J45.901 - Unspecified asthma with (acute) exacerbation
[2021-08-01] MEDS: FAMOTIDINE 20 MG in SYRINGE 3 ML IV SCH ×2 (10:25→20:47)
[2021-08-01] MEDS: MAGNESIUM SULFATE / D5W 1 GM/100 ML BAG IV SCH ×3 (20:03→23:53)
[2021-08-01] MEDS: MONTELUKAST SODIUM 10 MG TABLET PO SCH (20:11)
[2021-08-01] MEDS ORDERED: STAT IV Infusion **Titration per Protocol STA (22:04)
[2021-08-01] MEDS ORDERED: propofoL 1,000 MG/100 ML VIAL IV SCH (22:15)
[2021-08-02] MEDS: MAGNESIUM SULFATE / D5W 1 GM/100 ML BAG IV SCH (00:02)
[2021-08-02] MEDS: INSULIN ASPART PER UNIT SC SCH ×6 (00:21→21:27)
[2021-08-02] MEDS: propofoL 1,000 MG/100 ML VIAL IV SCH ×6 (01:35→23:48)
[2021-08-02] MEDS: PROPOFOL BOLUS FROM BAG IV PRN ×3 (02:32→20:44)
[2021-08-02] MEDS: ARTIFICIAL TEARS OP OINT 3.5 GM TUBE OP SCH ×3 (02:34→10:55)
[2021-08-02] MEDS: TUBE FEEDING WATER FLUSH OG SCH ×6 (02:34→23:01)
[2021-08-02] MEDS: ALBUT/IPRATROP 3MG/0.5MG NEB 3 ML VIAL NEB SCH ×6 (03:19→23:51)
[2021-08-02 04:19] LABS: iSTAT Allen Test Pass; iSTAT Arterial Blood Gas HCO3 43 meg/L (19-24); iSTAT Arterial Blood Gas pCO2 80 mmHg (35-46); iSTAT Arterial Blood Gas pH 7.34 (7.35-7.45); iSTAT Arterial Blood Gas pO2 73 mmHg (80-95); iSTAT Carbon Dioxide > 40 mmol/L (24-31); iSTAT FiO2 65 %; iSTAT Site L Radial
[2021-08-02] MEDS: methylPREDNISolone 60 MG in SYRINGE 0 ML IV SCH ×3 (05:38→21:27)
[2021-08-02 06:07] LABS: Hematocrit (blood only) 42.4 % (42-52); Hemoglobin 13.1 g/dL (14.0-18.0); Mean Corpuscular Hemoglobin 29.8 pg (25-34); Mean Corpuscular Hgb Conc 30.9 g/dL (32-36); Mean Corpuscular Volume 96.4 fL (80-100); Mean Platelet Volume 10.4 fL (7.4-10.4); Platelet Count 168 K/uL (130-400); RDW Coefficient of Variation 13.4 % (11.5-14.5); RDW Standard Deviation 47.9 fL (36.4-46.3); White Blood Count 14.11 K/uL (4.8-10.8)
[2021-08-02] MEDS ORDERED: STAT IV Infusion **Titration per Protocol STA (06:07)
[2021-08-02] MEDS ORDERED: propofoL 1,000 MG/100 ML VIAL IV SCH (06:15)
[2021-08-02 06:40] LABS: Basophils # (auto) 0.01 K/uL (0-0.2); Basophils % (auto) 0.1 %; Immature Granulocytes # (auto) 0.14 K/uL (0.00-0.02); Lymphocytes # (auto) 1.73 K/uL (1.2-3.4); Lymphocytes % (auto) 12.3 %; Monocytes # (auto) 0.75 K/uL (0.11-0.59); Monocytes % (auto) 5.3 %; Neutrophils # (auto) 11.48 K/uL (1.4-6.5); Neutrophils % (auto) 81.3 %; RBC Morphology Unremarkable
[2021-08-02 07:06] LABS: BUN Creatinine Ratio 27.5 (10-20); Creatinine Clr Calc Pharmacy 102.3 ml/min; Est GFR (African American) 120.1 ml/min; Est GFR (Non-African American) 103.6 ml/min; Magnesium 3.8 mg/dl (1.7-2.4); Phosphorus 2.7 mg/dl (2.5-4.9); Potassium 4.2 mmol/L (3.5-5.1)
[2021-08-02] MEDS: BUDESONIDE 0.5 MG/2 ML VIAL (PULMICORT) NEB SCH ×2 (07:35→20:03)
[2021-08-02] MEDS: FORMOTEROL 20 MCG/2 ML VIAL NEB SCH ×2 (07:35→20:03)
[2021-08-02] MEDS: AZITHROMYCIN 250 MG in DEXTROSE 5% 250 ML IV SCH (07:53)
[2021-08-02] MEDS: MULTI VIT W/MINERALS LIQUID 15 ML UDP NG SCH (07:53)
[2021-08-02] MEDS: ENOXAPARIN INJ 40 MG/0.4 ML SYR SQ SCH (07:53)
[2021-08-02] MEDS: FAMOTIDINE 20 MG in SYRINGE 3 ML IV SCH ×2 (07:54→21:30)
--- NOTE | 2021-08-02 08:24 | Critical Care Progress Note ---
Date of Service August 02, 2021 Assessment & Plan (1) Hypercapnic respiratory failure: Plan: Reason Critically Ill: 41-year-old male from [place]ial with history of poorly controlled asthma presents to the ICU with acute asthma exacerbation and worsening hypercapnic respiratory failure requiring emergent intubation. Neuro - Sedation: Propofol, fentanyl drips, wean sedation to RASS -1 to -2 if possible Cardiac - Tachycardiasinus tachycardia with rate 130s to 140s following albuterol nebulizers. Would hold on beta-salvador for now given patient's asthma exacerbation. Respiratory - Acute hypercapnic respiratory failure secondary to asthma exacerbationpatient was admitted on 07/28/2021 with acute asthma exacerbation. Patient was COVID-19 positive on PCR but is not significantly hypoxic at this time chest x-ray is clear without evidence of viral pneumonia. He did receive 1 dose remdesivir -Solu-Medrol decreased to 60 mg 3 times daily -DuoNeb scheduled every 4 hours -Started on budesonide 0.5 twice daily, Singulair, and Perforomist -Continuous monitoring pulse ox and end-tidal CO2 -Continued hypoxia will obtain CT chest rule out PE and further classify questionable infiltrate -Bronchoscopy today to obtain specimen and evaluate for mucous plugging: Two-physician consent as patient is a prisoner GI - N.p.o. Start tube feeds RENAL/LYTES - Creatinine stable, no electrolyte abnormalities Monitor routine BMPs - Foleystrict I's and O's ENDO - No history of diabetes or thyroid disease ICU hyperglycemic protocol HEME - H&H stable, monitor routine CBC ID - Azithromycin IV. COVID-19patient tested + 07/27/2021. -Patient did receive 1 dose remdesivir but was discontinued after first dose. -He is currently on Solu-Medrol in favor of dexamethasone due to asthma exacerbation LINES/IV ACCESS - Peripheral IVs DVT PROPHYLAXIS - SCDs, Lovenox I have personally spent 45 minutes of critical care time in the direct management of this patient. This is a life/limb threatening event. This includes time spent evaluating patient, direct bedside care, chart review, placing orders, interpretation of diagnostic studies, discussion with consultants, patient, and family members, as well as other required patient management activities. This time is exclusive of all separately billable procedures, and teaching time and separate from and in addition to any other critical care service time. (2) Asthma with exacerbation: (3) Required emergent intubation: (4) Sinus tachycardia: (5) COVID-19: (6) Hypoxia: Admission and Anticipated Discharge Date Admission Date: July 28, 2021 Subjective Overnight had 2 episodes where the patient became agitated and had significant mucous plugging Review of Systems Review of Systems: Unobtainable due to endotracheal tube Physical Exam Physical Exam: General: Sedated. GCS: 3 T, RASS -3 negative for Skin: Warm, dry, Head: Atraumatic Ears, nose, mouth and throat: airway obscured by endotracheal tube Cardiovascular: Normal peripheral perfusion Respiratory: Ventilator settings reviewed Gastrointestinal: Non distended Musculoskeletal: No deformity, 2+ deep tendon patellar reflexes Results & Data Results & Data ([facility]) Vital Signs (Past 12 Hours) Vital Signs Temp Pulse Pulse Resp BP Pulse Ox 08/02/21 07:35 98 H 23 91 08/02/21 07:30 137/86 08/02/21 07:00 141/85 H 08/02/21 06:30 36.9 C 103 H 22 142/85 H 93 08/02/21 06:00 144/83 H 08/02/21 05:30 137/87 08/02/21 05:00 142/84 H 08/02/21 04:30 145/85 H 08/02/21 04:04 156/94 H 08/02/21 04:00 151/87 H 08/02/21 03:30 141/85 H 08/02/21 03:19 102 H 22 92 08/02/21 03:00 140/81 08/02/21 02:30 37.0 C 110 H 22 141/88 H 91 08/02/21 02:22 36.9 C 109 H 22 161/97 H 83 L 08/02/21 02:00 36.8 C 106 H 22 136/86 92 08/02/21 01:30 36.7 C 108 H 22 141/84 H 91 08/02/21 01:00 36.7 C 112 H 22 136/88 90 08/02/21 00:30 36.7 C 114 H 22 139/83 90 08/02/21 00:00 36.8 C 121 H 21 138/77 90 08/01/21 23:30 37.0 C 124 H 20 134/90 89 L 08/01/21 23:20 117 H 24 90 08/01/21 23:10 37.2 C 120 H 19 160/92 H 97 08/01/21 23:00 37.2 C 127 H 20 179/101 H 79 L 08/01/21 22:30 36.9 C 112 H 22 143/83 H 89 L 08/01/21 22:00 36.9 C 110 H 22 141/88 H 89 L 08/01/21 21:30 36.9 C 111 H 22 140/85 90 08/01/21 21:00 36.9 C 111 H 22 146/91 H 90 08/01/21 20:58 111 H 23 90 08/01/21 20:30 114 H 22 142/88 H 91 Critical Care Results & Data Vital Signs (Past 12 Hours) Vital Signs Temp Pulse Pulse Resp BP Pulse Ox 08/02/21 07:35 98 H 23 91 08/02/21 07:30 137/86 08/02/21 07:00 141/85 H 08/02/21 06:30 36.9 C 103 H 22 142/85 H 93 08/02/21 06:00 144/83 H 08/02/21 05:30 137/87 08/02/21 05:00 142/84 H 08/02/21 04:30 145/85 H 08/02/21 04:04 156/94 H 08/02/21 04:00 151/87 H 08/02/21 03:30 141/85 H 08/02/21 03:19 102 H 22 92 08/02/21 03:00 140/81 08/02/21 02:30 37.0 C 110 H 22 141/88 H 91 08/02/21 02:22 36.9 C 109 H 22 161/97 H 83 L 08/02/21 02:00 36.8 C 106 H 22 136/86 92 08/02/21 01:30 36.7 C 108 H 22 141/84 H 91 08/02/21 01:00 36.7 C 112 H 22 136/88 90 08/02/21 00:30 36.7 C 114 H 22 139/83 90 08/02/21 00:00 36.8 C 121 H 21 138/77 90 08/01/21 23:30 37.0 C 124 H 20 134/90 89 L 08/01/21 23:20 117 H 24 90 08/01/21 23:10 37.2 C 120 H 19 160/92 H 97 08/01/21 23:00 37.2 C 127 H 20 179/101 H 79 L 08/01/21 22:30 36.9 C 112 H 22 143/83 H 89 L 08/01/21 22:00 36.9 C 110 H 22 141/88 H 89 L 08/01/21 21:30 36.9 C 111 H 22 140/85 90 08/01/21 21:00 36.9 C 111 H 22 146/91 H 90 08/01/21 20:58 111 H 23 90 08/01/21 20:30 114 H 22 142/88 H 91 Lab & Micro Results (Past 24 Hours) RBC 4.40 M/uL (4.7-6.1) L 08/02/21 WBC 14.11 K/uL (4.8-10.8) H 08/02/21 Hgb 13.1 g/dL (14.0-18.0) L 08/02/21 Hct 42.4 % (42-52) 08/02/21 MCV 96.4 fL (80-100) 08/02/21 MCH 29.8 pg (25-34) 08/02/21 MCHC 30.9 g/dL (32-36) L 08/02/21 RDW Standard Deviation 47.9 fL (36.4-46.3) H 08/02/21 RDW Coefficient of Variation 13.4 % (11.5-14.5) 08/02/21 Plt Count 168 K/uL (130-400) 08/02/21 MPV 10.4 fL (7.4-10.4) 08/02/21 Neutrophils (%) (Auto) 81.3 % 08/02/21 Lymphocytes (%) (Auto) 12.3 % 08/02/21 Monocytes # (Auto) 0.75 K/uL (0.11-0.59) H 08/02/21 Eosinophils # (Auto) 0.00 K/uL (0-0.5) 08/02/21 Immature Granulocyte % (Auto) 1.0 % 08/02/21 Neutrophils # (Auto) 11.48 K/uL (1.4-6.5) H 08/02/21 Lymphocytes # (Auto) 1.73 K/uL (1.2-3.4) 08/02/21 Monocytes # (Auto) 0.75 K/uL (0.11-0.59) H 08/02/21 Eosinophils # (Auto) 0.00 K/uL (0-0.5) 08/02/21 Basophils # (Auto) 0.01 K/uL (0-0.2) 08/02/21 Immature Granulocyte # (Auto) 0.14 K/uL (0.00-0.02) H 08/02/21 Red Blood Cell Morphology Unremarkable 08/02/21 Na 140 mmol/L (136-145) 08/02/21 K 4.2 mmol/L (3.5-5.1) 08/02/21 Cl 97 mmol/L (98-107) L 08/02/21 CO2 39 mmol/L (21-32) H 08/02/21 Anion Gap 4 (3-11) 08/02/21 BUN 25 mg/dl (6-23) H 08/02/21 Creatinine 0.91 mg/dl (0.6-1.4) 08/02/21 Estimated GFR ( Amer) 120.1 ml/min 08/02/21 Estimated GFR (Non-Af Amer) 103.6 ml/min 08/02/21 BUN/Creatinine Ratio 27.5 (10-20) H 08/02/21 Glu 146 mg/dl (70-99(Fasting)) H 08/02/21 Ca 8.0 mg/dl (8.5-10.1) L 08/02/21 Phosphorus Level 2.7 mg/dl (2.5-4.9) 08/02/21 Mg 3.8 mg/dl (1.7-2.4) H 08/02/21 05:50 08/02/21 Calcium Level 8.0 mg/dl (8.5-10.1) L 08/02/21 05:50 08/02/21 Jv Test Pass 08/02/21 04:01 08/02/21 Diagnostic Findings (Past 24 Hours) Chest X-Ray 08/01/21 07:00 XR chest 1V portable CLINICAL HISTORY: Respiratory failure. COMPARISON STUDY: Chest radiograph July 31, 2021. FINDINGS: Tip of endotracheal tube is 3.5 cm above the tono. Tip of nasogastric tube is below the lower aspect of this image but at least within the body of the stomach There is no pneumothorax or pleural effusion. Cardiac size is normal. Mediastinal contours are normal. There may be right infrahilar airsp yfn opacity. IMPRESSION: 1. Satisfactory positioning of the endotracheal tube. 2. Possible right infrahilar airspace opacity. ACT 112: Negative or not required by law. Electronically signed by: Trevin Berry M.D. 08/01/2021 8:35 AM I & O Totals 24 Hours 08/01/21 08/02/21 08/03/21 06:59 06:59 06:59 Intake Total 2481.445 / 2481.445 1719.592 / 1719.592 Output Total 900 / 900 1475 / 1475 Balance 1581.445 / 1581.445 244.592 / 244.592 Cumulative 07/27/21 21:47 thru 08/02/21 06:03 Intake Total 59109.388 Output Total 9327 Balance 3722.388 RT Ventilator Mngmt (Last Documented) Ventilator Ordered Settings Ventilator Support Mode Assist Control 08/02/21 0 7:35 Respiratory Rate 23 08/02/21 07:35 Ventilator Tidal Volume 340 08/02/21 07:35 Setting Minute Ventilation 7.5 08/02/21 07:35 Positive End Expiratory 3 08/02/21 07:35 Pressure Fraction of Inspired Oxygen 60 08/02/21 07:35 Machine Comment FiO2 found at 65%. ABG drawn at 08/02/21 03:19 this time Ventilator - PT Measurements Respiratory Rate 23 Exhaled Tidal Volume 341 Minute Ventilation 7.5 Peak Inspiratory Airway 31 Pressure Plateau Pressure 28 Respiratory Cycle Inspiratory: 1:2.2 Expiratory Ratio Inspiratory Phase Time 0.85 End-Tidal CO2 22 Static Lung Compliance 13.64 Dynamic Lung Compliance 12.18 Normal Static Lung Compliance 42.00 Patient Measurements Comment head gear changed, ETT secured at 25cm at the lip. bite block in place Coding Level of Care Code Critical Care 1st 30-74 mins Diagnoses Hypercapnic respiratory failure J96.92 Asthma with exacerbation J45.901 Asthma persistence: unspecified Asthma severity: unspecified severity Required emergent intubation Z98.890 Sinus tachycardia R00.0 COVID-19 U07.1 Hypoxia R09.02 (1) Asthma with exacerbation Asthma persistence: unspecified Asthma severity: unspecified severity Qualified Code(s): J45.901 - Unspecified asthma with (acute) exacerbation
--- NOTE | 2021-08-02 08:25 | XRay Report ---
XR chest 1V portable HISTORY: Respiratory failure. Shortness of breath. COMPARISON: None. FINDINGS: Endotracheal tube and nasogastric tube appear good position. No pneumothorax. No pleural ef fusions. The heart is normal in size. Questionable right infrahilar density is again noted. Otherwise , the lungs are clear. IMPRESSION: 1. Satisfactory support line placement which is unchanged in position. 2. Possible right infrahilar density is again noted. ACT 112: Negative or not required by law. Electronically signed by: Moreno Hoffman M.D. 08/02/2021 8:24 AM
--- NOTE | 2021-08-02 09:04 | Hospitalist Progress Note ---
Date of Service August 02, 2021 Assessment & Plan (1) Asthma with exacerbation: Plan: severe persistent asthma with acute exacerbation long history of asthma, has not been hospitalized for years got worse over two days, quickly decompensated despite treatment intubated evening of 07/29/21 continue Solu Medrol 60mg TID albuterol nebulizers, budesonide 0.5 twice daily, Singulair, and Perforomist Zithromax 250mg IV daily for atypical coverage Magnesium IV per ICU (mag level is 3.8 again today) peak pressures a little better today, CO2 remains high at 80 inspiratory and expiratory wheezing bilaterally I discussed with Dr. Lu, onsite case manager, I agree that the patient needs bronchoscopy today (2) Hypercapnic respiratory failure: Plan: pCO2 still quite high in 80's compensatory metabolic alkalosis, HCO3 in 30s (3) Hypoxia: Plan: due to asthma but majority of issue is hypercapnia CXR clear today only on PEEP 3 and FiO2 65% (4) COVID-19: Plan: stopped Remdesivir continue Solu Medrol for asthma exacerbation continue isolation D dimer normal at 260, no need for CTA chest continue Lovenox 40mg BID CXR today without infiltrates (5) Sinus tachycardia: Plan: due to stress, nebulizers no concern about PE with a D dimer of only 260 Plan: remain in ICU requires bronchoscopy today as he is not making significant improvement Admission and Anticipated Discharge Date Admission Date: July 28, 2021 Subjective patient remains intubated, PEEP 3 and FiO2 60% remains very tight on auscultation, wheezing bilaterally, inspiratory wheeze left side anterior chest patient needs a bronchoscopy to evaluate large airways, this is emergent procedure, two physician consent Review of Systems Review of Systems: Unobtainable due to cognitive status and Unobtainable due to endotracheal tube Physical Exam Physical Exam: General: well developed, well nourished, sedated on ventilator Neck: supple, trachea midline, normal thyroid Lungs: bilateral inspiratory and expiratory wheezing, reduced air flow, symmetric chest movement, on ventilator Heart: tachycardic S1 and S2, no murmur, peripheral pulses normal, capillary refill normal, no edema Abdomen: soft, NT, slightly distended, + BS, no hepatomegaly, tympanic to percussion Extremities: normal in appearance, no cyanosis, no petechiae, strength was 5/5 bilaterally prior to paralytics Neuro: sedated, no focal motor deficits, CN II-XII intact Skin: warm, dry, no rash, normal turgor Psych: sedated Results & Data Results & Data ([facility]) Vital Signs (Past 12 Hours) Vital Signs Temp Pulse Resp BP Pulse Ox 08/02/21 07:35 98 H 23 91 08/02/21 07:30 137/86 08/02/21 07:00 141/85 H 08/02/21 06:30 36.9 C 103 H 22 142/85 H 93 08/02/21 06:00 144/83 H 08/02/21 05:30 137/87 08/02/21 05:00 142/84 H 08/02/21 04:30 145/85 H 08/02/21 04:04 156/94 H 08/02/21 04:00 151/87 H 08/02/21 03:30 141/85 H 08/02/21 03:19 102 H 22 92 08/02/21 03:00 140/81 08/02/21 02:30 37.0 C 110 H 22 141/88 H 91 08/02/21 02:22 36.9 C 109 H 22 161/97 H 83 L 08/02/21 02:00 36.8 C 106 H 22 136/86 92 08/02/21 01:30 36.7 C 108 H 22 141/84 H 91 08/02/21 01:00 36.7 C 112 H 22 136/88 90 08/02/21 00:30 36.7 C 114 H 22 139/83 90 08/02/21 00:00 36.8 C 121 H 21 138/77 90 08/01/21 23:30 37.0 C 124 H 20 134/90 89 L 08/01/21 23:20 117 H 24 90 08/01/21 23:10 37.2 C 120 H 19 160/92 H 97 08/01/21 23:00 37.2 C 127 H 20 179/101 H 79 L 08/01/21 22:30 36.9 C 112 H 22 143/83 H 89 L 08/01/21 22:00 36.9 C 110 H 22 141/88 H 89 L 08/01/21 21:30 36.9 C 111 H 22 140/85 90 Laboratory Results Laboratory Results - last 24 hr 07/30/21 07/30/21 07/30/21 16:13 19:54 23:31 WBC RBC Hgb POC Hgb Hct POC Hct MCV MCH MCHC RDW Std Deviation RDW Coeff of Kimi Plt Count MPV Immature Gran % (Auto) Neut % (Auto) Lymph % (Auto) Sampson % (Auto) Eos % (Auto) Baso % (Auto) Neut # (Auto) Lymph # (Auto) Sampson # (Auto) Eos # (Auto) Baso # (Auto) Immature Gran # (Auto) RBC Morphology Specimen Type Sample Site Patient Temperature POC pH POC pCO2 POC pO2 POC HCO3 POC Total CO2 POC Base Excess O2 Sat Pulse Oximetry ABG pH (Temp Correct) ABG pCO2 (Temp Corrct POC ABG pO2 at Pt Temp POC ABG O2 Sat Jv Test Set Respiration Rate O2 Delivery Device POC O2 Rate Minute Ventilation Spont Minute Ventilation Vent Mode Vent Setting Spontaneous Rate FiO2 (liters per min) POC FiO2 Tidal Volume Spontaneous Tidal Vol End Tidal CO2 PEEP High PEEP Setting Low PEEP Setting Pressure Support POC Pressure Suppt Pressure Support Vent Pressure High Time High Time Low EPAP IPAP POC Sodium Sodium POC Potassium Potassium Chloride Carbon Dioxide Anion Gap BUN Creatinine Est Cr Clr Drug Dosing Est GFR ( Amer) Est GFR (Non-Af Amer) BUN/Creatinine Ratio Glucose POC Glucose 191 H 143 H 136 H Calcium Phosphorus Magnesium 07/31/21 08/01/21 08/01/21 03:19 11:43 15:43 WBC RBC Hgb POC Hgb Cancelled Hct POC Hct Cancelled MCV MCH MCHC RDW Std Deviation RDW Coeff of Kimi Plt Count MPV Immature Gran % (Auto) Neut % (Auto) Lymph % (Auto) Sampson % (Auto) Eos % (Auto) Baso % (Auto) Neut # (Auto) Lymph # (Auto) Sampson # (Auto) Eos # (Auto) Baso # (Auto) Immature Gran # (Auto) RBC Morphology Specimen Type Cancelled Sample Site Cancelled Patient Temperature Cancelled POC pH Cancelled POC pCO2 Cancelled POC pO2 Cancelled POC HCO3 Cancelled POC Total CO2 Cancelled POC Base Excess Cancelled O2 Sat Pulse Oximetry Cancelled ABG pH (Temp Correct) Cancelled ABG pCO2 (Temp Corrct Cancelled POC ABG pO2 at Pt Temp Cancelled POC ABG O2 Sat Cancelled Jv Test Cancelled Set Respiration Rate Cancelled O2 Delivery Device Cancelled POC O2 Rate Cancelled Minute Ventilation Cancelled Spont Minute Ventilation Cancelled Vent Mode Cancelled Vent Setting Cancelled Spontaneous Rate Cancelled FiO2 (liters per min) Cancelled POC FiO2 Cancelled Tidal Volume Cancelled Spontaneous Tidal Vol Cancelled End Tidal CO2 Cancelled PEEP Cancelled High PEEP Setting Cancelled Low PEEP Setting Cancelled Pressure Support Cancelled POC Pressure Suppt Cancelled Pressure Support Vent Cancelled Pressure High Cancelled Time High Cancelled Time Low Cancelled EPAP Cancelled IPAP Cancelled POC Sodium Cancelled Sodium POC Potassium Cancelled Potassium Chloride Carbon Dioxide Anion Gap BUN Creatinine Est Cr Clr Drug Dosing Est GFR ( Amer) Est GFR (Non-Af Amer) BUN/Creatinine Ratio Glucose POC Glucose 142 H 157 H Calcium Phosphorus Magnesium 08/01/21 08/01/21 08/02/21 19:55 23:57 03:57 WBC RBC Hgb POC Hgb Hct POC Hct MCV MCH MCHC RDW Std Deviation RDW Coeff of Kimi Plt Count MPV Immature Gran % (Auto) Neut % (Auto) Lymph % (Auto) Sampson % (Auto) Eos % (Auto) Baso % (Auto) Neut # (Auto) Lymph # (Auto) Sampson # (Auto) Eos # (Auto) Baso # (Auto) Immature Gran # (Auto) RBC Morphology Specimen Type Sample Site Patient Temperature POC pH POC pCO2 POC pO2 POC HCO3 POC Total CO2 POC Base Excess O2 Sat Pulse Oximetry ABG pH (Temp Correct) ABG pCO2 (Temp Corrct POC ABG pO2 at Pt Temp POC ABG O2 Sat Jv Test Set Respiration Rate O2 Delivery Device POC O2 Rate Minute Ventilation Spont Minute Ventilation Vent Mode Vent Setting Spontaneous Rate FiO2 (liters per min) POC FiO2 Tidal Volume Spontaneous Tidal Vol End Tidal CO2 PEEP High PEEP Setting Low PEEP Setting Pressure Support POC Pressure Suppt Pressure Support Vent Pressure High Time High Time Low EPAP IPAP POC Sodium Sodium POC Potassium Potassium Chloride Carbon Dioxide Anion Gap BUN Creatinine Est Cr Clr Drug Dosing Est GFR ( Amer) Est GFR (Non-Af Amer) BUN/Creatinine Ratio Glucose POC Glucose 127 H 142 H 125 H Calcium Phosphorus Magnesium 08/02/21 08/02/21 08/02/21 04:01 05:50 05:50 WBC 14.11 H RBC 4.40 L Hgb 13.1 L POC Hgb Hct 42.4 POC Hct MCV 96.4 MCH 29.8 MCHC 30.9 L RDW Std Deviation 47.9 H RDW Coeff of Kimi 13.4 Plt Count 168 MPV 10.4 Immature Gran % (Auto) 1.0 Neut % (Auto) 81.3 Lymph % (Auto) 12.3 Sampson % (Auto) 5.3 Eos % (Auto) 0.0 Baso % (Auto) 0.1 Neut # (Auto) 11.48 H Lymph # (Auto) 1.73 Sampson # (Auto) 0.75 H Eos # (Auto) 0.00 Baso # (Auto) 0.01 Immature Gran # (Auto) 0.14 H RBC Morphology Unremarkable Specimen Type Sample Site L Radial Patient Temperature POC pH 7.34 L POC pCO2 80 H POC pO2 73 L POC HCO3 43 H POC Total CO2 > 40 H* POC Base Excess 17.0 H O2 Sat Pulse Oximetry ABG pH (Temp Correct) ABG pCO2 (Temp Corrct POC ABG pO2 at Pt Temp POC ABG O2 Sat 92.0 Jv Test Pass Set Respiration Rate O2 Delivery Device Ventilator POC O2 Rate 22 Minute Ventilation Spont Minute Ventilation Vent Mode Vent Setting Spontaneous Rate FiO2 (liters per min) POC FiO2 65 Tidal Volume 340 Spontaneous Tidal Vol End Tidal CO2 PEEP 3 High PEEP Setting Low PEEP Setting Pressure Support POC Pressure Suppt Pressure Support Vent Pressure High Time High Time Low EPAP IPAP POC Sodium Sodium 140 POC Potassium Potassium 4.2 Chloride 97 L Carbon Dioxide 39 H Anion Gap 4 BUN 25 H Creatinine 0.91 D Est Cr Clr Drug Dosing 102.3 Est GFR ( Amer) 120.1 Est GFR (Non-Af Amer) 103.6 BUN/Creatinine Ratio 27.5 H Glucose 146 H POC Glucose Calcium 8.0 L Phosphorus 2.7 Magnesium 3.8 H 08/02/21 07:48 WBC RBC Hgb POC Hgb Hct POC Hct MCV MCH MCHC RDW Std Deviation RDW Coeff of Kimi Plt Count MPV Immature Gran % (Auto) Neut % (Auto) Lymph % (Auto) Sampson % (Auto) Eos % (Auto) Baso % (Auto) Neut # (Auto) Lymph # (Auto) Sampson # (Auto) Eos # (Auto) Baso # (Auto) Immature Gran # (Auto) RBC Morphology Specimen Type Sample Site Patient Temperature POC pH POC pCO2 POC pO2 POC HCO3 POC Total CO2 POC Base Excess O2 Sat Pulse Oximetry ABG pH (Temp Correct) ABG pCO2 (Temp Corrct POC ABG pO2 at Pt Temp POC ABG O2 Sat Jv Test Set Respiration Rate O2 Delivery Device POC O2 Rate Minute Ventilation Spont Minute Ventilation Vent Mode Vent Setting Spontaneous Rate FiO2 (liters per min) POC FiO2 Tidal Volume Spontaneous Tidal Vol End Tidal CO2 PEEP High PEEP Setting Low PEEP Setting Pressure Support POC Pressure Suppt Pressure Support Vent Pressure High Time High Time Low EPAP IPAP POC Sodium Sodium POC Potassium Potassium Chloride Carbon Dioxide Anion Gap BUN Creatinine Est Cr Clr Drug Dosing Est GFR ( Amer) Est GFR (Non-Af Amer) BUN/Creatinine Ratio Glucose POC Glucose 145 H Calcium Phosphorus Magnesium Medications Administered Current Inpatient Medications Albuterol (Albut/Ipratrop 3mg/0.5mg Neb 3 Ml Vial) 3 ml NEB Q4R [facility]; Protocol Stop: 08/29/21 03:59 Last Admin: 08/02/21 07:35 Dose: 3 ml Documented by: Budesonide (Budesonide 0.5 Mg/2 Ml Vial (Pulmicort)) 0.5 mg NEB BIDR [facility] Stop: 08/29/21 06:59 Last Admin: 08/02/21 07:35 Dose: 0.5 mg Documented by: Enoxaparin Sodium (Enoxaparin Inj 40 Mg/0.4 Ml Syr) 40 mg SQ Q24H [facility] Stop: 08/27/21 07:59 Last Admin: 08/02/21 07:53 Dose: 40 mg Documented by: Fentanyl Citrate (Fentanyl Bolus From Bag) 50 mcg IV Q60M PRN PRN Reason: Pain or Agitation Stop: 08/12/21 21:57 Last Admin: 08/02/21 04:07 Dose: 50 mcg Documented by: Formoterol Fumarate (Formoterol 20 Mcg/2 Ml Vial) 20 mcg NEB BIDR [facility] Stop: 08/28/21 23:14 Last Admin: 08/02/21 07:35 Dose: 20 mcg Documented by: Fentanyl Citrate (Fentanyl Citrate) 2,500 mcg in 250 mls @ 20 mls/hr IV .[id number] [facility]; Protocol Stop: 08/12/21 21:59 Last Admin: 08/01/21 23:10 Dose: 200 mcg/hr, 20 mls/hr Documented by: Famotidine 20 mg/ Syringe 5 mls @ 2.5 mls/min IV Q12 [facility] Stop: 08/29/21 11:59 Last Admin: 08/02/21 07:54 Dose: 2.5 mls/min Documented by: Methylprednisolone 60 mg/ (Syringe) 0.96 mls @ 1.5 mls/min IV Q8H [facility] Stop: 08/30/21 13:59 Last Admin: 08/02/21 05:38 Dose: 1.5 mls/min Documented by: Azithromycin 250 mg/ Dextrose 252.5 mls @ 125 mls/hr IV QAM [facility] Stop: 08/05/21 11:02 Last Admin: 08/02/21 07:53 Dose: 125 mls/hr Documented by: Propofol (Diprivan) 1,000 mg in 100 mls @ 23.13 mls/hr IV .Q4H20M [facility]; Protocol Stop: 08/05/21 01:59 Last Admin: 08/02/21 06:18 Dose: 50 mcg/kg/min, 23.1 mls/hr Documented by: Propofol (Diprivan) 1,000 mg in 100 mls @ 9.756 mls/hr IV .[id number] [facility]; Protocol Stop: 08/05/21 06:14 Last Admin: 08/02/21 06:51 Dose: Not Given Documented by: Insulin Aspart (Insulin Aspart Per Unit) 0 units SC Q4 [facility]; Protocol Stop: 08/29/21 15:59 Last Admin: 08/02/21 08:06 Dose: 5 units Documented by: Miscellaneous Information (Pharmacy Glycemic Mgmt Consult) 1 ea N/A UD PRN PRN Reason: Consult Stop: 08/29/21 14:41 Montelukast Sodium (Montelukast Sodium 10 Mg Tablet) 10 mg PO HS [facility] Stop: 08/29/21 20:59 Last Admin: 08/01/21 20:11 Dose: 10 mg Documented by: Multi-Ingredient Cream (Artificial Tears Op Oint 3.5 Gm Tube) 1 appln OP Q4H [facility] Stop: 08/29/21 00:00 Last Admin: 08/02/21 07:30 Dose: Not Given Documented by: Multivitamins/Minerals (Multi Vit W/Minerals Liquid 15 Ml Udp) 15 ml NG QAM [facility] Stop: 08/31/21 08:59 Last Admin: 08/02/21 07:53 Dose: 15 ml Documented by: Nutritional Formula (Peptamen Intense Vhp 1.0 Jaydon 1,000 Ml Bag) 1,000 ml OG UD ANIL; Protocol Stop: 08/30/21 10:59 Last Admin: 07/31/21 12:06 Dose: 1,000 ml Documented by: Ondansetron HCl (Ondansetron Inj 2 Mg/Ml 2 Ml Vial) 4 mg IV Q6H PRN PRN Reason: Nausea Stop: 08/27/21 04:07 Propofol (Propofol Bolus From Bag) 20 mg IV Q5M PRN PRN Reason: Sedation Stop: 08/04/21 22:14 Last Admin: 08/02/21 04:07 Dose: 20 mg Documented by: Propofol (Propofol Bolus From Bag) 20 mg IV Q5M PRN PRN Reason: Sedation Stop: 08/05/21 06:06 Sterile Water (Tube Feeding Water Flush) 30 ml OG Q4H ANIL Stop: 08/30/21 10:59 Last Admin: 08/02/21 07:30 Dose: 30 ml Documented by: PG Care Time/CCT Total # of Minutes Spent Total Time Spent with Patient: Total time spent is greater than 50% in coordination of care (as documented) at patient's floor/unit and/or counseling patient: Coding Level of Care Code 68207 Subseq Hosp Care Lvl 3 Diagnoses Asthma with exacerbation J45.901 Asthma persistence: unspecified Asthma severity: unspecified severity Hypercapnic respiratory failure J96.92 Hypoxia R09.02 COVID-19 U07.1 Sinus tachycardia R00.0 (1) Asthma with exacerbation Asthma persistence: unspecified Asthma severity: unspecified severity Qualified Code(s): J45.901 - Unspecified asthma with (acute) exacerbation
[2021-08-02] MEDS: fentaNYL citrate 2,500 MCG/250 ML BAG IV SCH ×2 (12:15→23:01)
[2021-08-02] MEDS ORDERED: OPTIRAY 320 125ml IV ONE (12:18)
--- NOTE | 2021-08-02 12:29 | CT Scan Report ---
CT angio chest PE protocol CLINICAL HISTORY: Covid positive. Shortness of breath. Patient intubated. Evaluate for pulmonary embo brianna COMPARISON STUDY: Portable chest from 08/02/2021 CT DOSE: 533.19 mGycm TECHNIQUE: CT Angio of the chest was performed.followed by image post processing with coronal, and s agittal MIP reformats. Contrast Volume: Optiray 320, 120 ml FINDINGS: Vasculature: There is homogeneous perfusion of the pulmonary vasculature bilaterally. No intraluminal filling defects or evidence for pulmonary embolus is seen. Airway: The airway is clear. No endobronchial lesion is identified. Endotracheal tube is in place. Lungs: Only very minimal dependent edema versus atelectasis is seen at the lung bases posteriorly. Th e lungs are otherwise clear of groundglass opacities, acute alveolar opacities, air bronchograms or p ulmonary nodules. Pleura: There is no evidence for pleural effusion. There is no evidence for pneumothorax. Mediastinum: There is no evidence for pathologic adenopathy. The heart size is within normal limits. The thoracic aorta is within normal limits. There is no evidence for pericardial effusion. Upper abdomen:The adrenal glands are normal bilaterally. Enteric catheter extends into the stomach. Osseous structures: There is no acute osseous pathology. Impression: 1. No CTA evidence for pulmonary embolus. 2. No acute chest disease. There is a minimal dependent edema versus atelectasis at the lung bases po steriorly. 3. ET tube and enteric catheter in satisfactory position.. ACT 112: Negative or not required by law. Electronically signed by: Eren Ashford M.D. 08/02/2021 12:28 PM
--- NOTE | 2021-08-02 13:35 | Procedure Note ---
Procedure Note Date of Service August 02, 2021 Note Procedure date: Noted above Procedure: fiberoptic bronchoscopy Pre-procedure indication: Persistent hyper toxic respiratory failure, mucous plugging Post-procedure Diagnosis: same as above Prior to Procedure: Informed Consent: Two-physician consent patient institutionalized Attending Staff: David Lu DO Resident/APC: Not applicable Skin Prep: Not applicable Anesthesia: Continuous infusion The identity of the patient was confirmed and a bedside time out was performed. Description of Procedure: Fiberoptic bronchoscopy was performed via endotracheal tube. Bronchioalveolar lavage right lower lobe was performed. Findings included: Minimal amount of white thin creamy mucus suctioned from proximal airways no significant mucus plugging distally. Lung tissue globally appears mildly inflamed and irritated. Complications: None Specimens: Bronchial washings sent for culture and Gram stain, fungal elements, AFB stain and culture, cell count differential, cytology. Estimated blood loss: Zero Coding CPT Codes Pulmonary/Thoracic - Pulmonary and Thoracic: 02864 Dx bronchoscopy/BAL ([id number]) [facility] Codes (Charges) Pulmonary/Thoracic Procedure 1: Pulmonary and Thoracic: 09931 Dx bronchoscopy/BAL
[2021-08-02] MEDS: MONTELUKAST SODIUM 10 MG TABLET PO SCH (21:27)
[2021-08-03] MEDS: PROPOFOL BOLUS FROM BAG IV PRN (00:33)
[2021-08-03] MEDS: fentaNYL citrate 2,500 MCG/250 ML BAG IV SCH ×3 (00:36→11:52)
[2021-08-03] MEDS: ALBUT/IPRATROP 3MG/0.5MG NEB 3 ML VIAL NEB SCH ×6 (03:31→22:27)
[2021-08-03] MEDS: propofoL 1,000 MG/100 ML VIAL IV SCH ×5 (03:36→13:23)
[2021-08-03 04:15] LABS: iSTAT Allen Test Pass; iSTAT Arterial Blood Gas HCO3 45 meg/L (19-24); iSTAT Arterial Blood Gas pCO2 77 mmHg (35-46); iSTAT Arterial Blood Gas pH 7.37 (7.35-7.45); iSTAT Arterial Blood Gas pO2 77 mmHg (80-95); iSTAT Carbon Dioxide > 40 mmol/L (24-31); iSTAT FiO2 75 %; iSTAT Site R Radial
[2021-08-03] MEDS: INSULIN ASPART PER UNIT SC SCH ×5 (06:51→20:32)
[2021-08-03] MEDS: TUBE FEEDING WATER FLUSH OG SCH ×4 (06:51→16:02)
[2021-08-03] MEDS: methylPREDNISolone 60 MG in SYRINGE 0 ML IV SCH ×2 (06:51→09:54)
[2021-08-03 07:32] LABS: Hematocrit (blood only) 41.5 % (42-52); Hemoglobin 12.9 g/dL (14.0-18.0); Mean Corpuscular Hemoglobin 29.7 pg (25-34); Mean Corpuscular Hgb Conc 31.1 g/dL (32-36); Mean Corpuscular Volume 95.4 fL (80-100); Nucleated RBC # (auto) 0.04 K/uL (0-0); Nucleated RBC % (auto) 0.3 %; Platelet Count 172 K/uL (130-400); Red Blood Count 4.35 M/uL (4.7-6.1); White Blood Count 14.61 K/uL (4.8-10.8)
[2021-08-03] MEDS: ENOXAPARIN INJ 40 MG/0.4 ML SYR SQ SCH (07:35)
[2021-08-03 07:54] LABS: Bordetella parapertussis PCR Not Detected (NotDetected); Bordetella pertussis PCR Not Detected (NotDetected); Chlamydia pneumoniae PCR Not Detected (NotDetected); Coronavirus 229E PCR Not Detected (NotDetected); Coronavirus CoV-2 (COVID19)PCR DETECTED (NotDetected); Coronavirus HKU1 PCR Not Detected (NotDetected); Coronavirus NL63 PCR Not Detected (NotDetected); Coronavirus OC43PCR Not Detected (NotDetected); Human Metapneumovirus PCR Not Detected (NotDetected); Influenza A PCR Not Detected (NotDetected); Influenza B PCR Not Detected (NotDetected); Mycoplasma pneumoniae PCR Not Detected (NotDetected); Parainfluenza Virus 1 PCR Not Detected (NotDetected); Parainfluenza Virus 2 PCR Not Detected (NotDetected); Parainfluenza Virus 3 PCR Not Detected (NotDetected); Parainfluenza Virus 4 PCR Not Detected (NotDetected); Respiratory Syncytial VirusPCR Not Detected (NotDetected); Rhinovirus/Enterovirus PCR Not Detected (NotDetected)
[2021-08-03] MEDS: BUDESONIDE 0.5 MG/2 ML VIAL (PULMICORT) NEB SCH ×2 (07:58→19:59)
[2021-08-03] MEDS: FORMOTEROL 20 MCG/2 ML VIAL NEB SCH ×2 (07:58→19:59)
--- NOTE | 2021-08-03 08:11 | XRay Report ---
XR chest 1V portable HISTORY: intubation COMPARISON: Chest 08/02/2021. FINDINGS: The endotracheal tube terminates 4.2 cm from the tono. Nasogastric tube terminates below the diaphragm. The tip is not included on this study. No pneumothorax. No pleural effusions. The hear t is top normal in size. Small patchy bibasilar densities persist and could represent atelectasis or pneumonia. No new focal lung consolidations. No evidence for pulmonary edema. IMPRESSION: 1. Satisfactory support line placement. 2. Small patchy bibasilar densities remain unchanged and may represent atelectasis or pneumonia. ACT 112: Negative or not required by law. Electronically signed by: Moreno Hoffman M.D. 08/03/2021 8:09 AM
[2021-08-03 08:18] LABS: Adenovirus PCR Not Detected (NotDetected)
[2021-08-03 08:28] LABS: Albumin Level 3.5 gm/dl (3.4-5.0); BUN Creatinine Ratio 29.8 (10-20); Bilirubin Direct 0.1 mg/dl (0-0.2); Bilirubin,Total 0.4 mg/dl (0.2-1.0); Calcium 8.4 mg/dl (8.5-10.1); Creatinine Clr Calc Pharmacy 110.8 ml/min; Est GFR (African American) 125.2 ml/min; Phosphorus 2.9 mg/dl (2.5-4.9); Potassium 4.4 mmol/L (3.5-5.1); Total Protein 6.1 gm/dl (6.0-8.3)
[2021-08-03 09:23] LABS: Basophils # (auto) 0.02 K/uL (0-0.2); Basophils % (auto) 0.1 %; Immature Granulocytes # (auto) 0.26 K/uL (0.00-0.02); Immature Granulocytes % (auto) 1.8 %; Lymphocytes # (auto) 1.39 K/uL (1.2-3.4); Lymphocytes % (auto) 9.5 %; Monocytes # (auto) 1.59 K/uL (0.11-0.59); Monocytes % (auto) 10.9 %; Neutrophils # (auto) 11.35 K/uL (1.4-6.5); Neutrophils % (auto) 77.7 %
[2021-08-03] MEDS: AZITHROMYCIN 250 MG in DEXTROSE 5% 250 ML IV SCH (09:54)
[2021-08-03] MEDS: FAMOTIDINE 20 MG in SYRINGE 3 ML IV SCH (09:55)
[2021-08-03] MEDS: MULTI VIT W/MINERALS LIQUID 15 ML UDP NG SCH (09:57)
--- NOTE | 2021-08-03 10:23 | Critical Care Progress Note ---
Date of Service August 03, 2021 Assessment & Plan (1) Hypercapnic respiratory failure: Plan: Reason Critically Ill: 41-year-old male from [facility] with history of poorly controlled asthma presents to the ICU with acute asthma exacerbation and worsening hypercapnic respiratory failure requiring emergent intubation. Neuro - Sedation: Propofol, fentanyl drips, wean sedation to RASS -1 to -2 if possible Cardiac - Tachycardiasinus tachycardia with rate 130s to 140s following albuterol nebulizers. Respiratory - Acute hypercapnic respiratory failure secondary to asthma exacerbationpatient was admitted on 07/28/2021 with acute asthma exacerbation. Patient was COVID-19 positive on PCR but is not significantly hypoxic at this time chest x-ray is clear without evidence of viral pneumonia. He did receive 1 dose remdesivir -Solu-Medrol decreased to 60 mg 3 times daily -DuoNeb scheduled every 4 hours -Started on budesonide 0.5 twice daily, Singulair, and Perforomist -Continuous monitoring pulse ox and end-tidal CO2 -Reviewed CT scan -Bronchoscopy yesterday largely unremarkable -Trial of extubation, we can supply supplemental O2 his waveforms indicate much less air trapping and I feel that continued sedation will be counterproductive -Certainly patient is at risk for reintubation GI - N.p.o. Start tube feeds RENAL/LYTES - Creatinine stable, no electrolyte abnormalities Monitor routine BMPs - Foleystrict I's and O's ENDO - No history of diabetes or thyroid disease ICU hyperglycemic protocol HEME - H&H stable, monitor routine CBC ID - Azithromycin IV. COVID-19patient tested + 07/27/2021. -Patient did receive 1 dose remdesivir but was discontinued after first dose. -He is currently on Solu-Medrol in favor of dexamethasone due to asthma exacerbation LINES/IV ACCESS - Peripheral IVs DVT PROPHYLAXIS - SCDs, Lovenox I have personally spent 45 minutes of critical care time in the direct management of this patient. This is a life/limb threatening event. This includes time spent evaluating patient, direct bedside care, chart review, placing orders, interpretation of diagnostic studies, discussion with consultants, patient, and family members, as well as other required patient management activities. This time is exclusive of all separately billable procedures, and teaching time and separate from and in addition to any other critical care service time. (2) Asthma with exacerbation: (3) Required emergent intubation: (4) Sinus tachycardia: (5) COVID-19: (6) Hypoxia: Admission and Anticipated Discharge Date Admission Date: July 28, 2021 Subjective Overnight has periods of agitation with lightening sedation Review of Systems Review of Systems: Unobtainable due to endotracheal tube Physical Exam Physical Exam: General: Sedated. GCS: 3 T, RASS -3 negative Skin: Warm, dry, Head: Atraumatic Ears, nose, mouth and throat: airway obscured by endotracheal tube Cardiovascular: Normal peripheral perfusion Respiratory: Ventilator settings reviewed Gastrointestinal: Non distended Musculoskeletal: No deformity, 2+ deep tendon patellar reflexes Results & Data Results & Data ([facility]) Vital Signs (Past 12 Hours) Vital Signs Temp Pulse Resp Pulse Ox 08/03/21 10:00 37.5 C 104 H 22 92 08/03/21 09:00 37.4 C 105 H 21 91 08/03/21 08:00 37.4 C 101 H 22 92 08/03/21 07:59 103 H 22 94 08/03/21 07:00 37.4 C 107 H 22 94 08/03/21 04:49 96 H 24 94 08/03/21 00:00 98 H 08/02/21 23:55 96 H 28 H 97 Coding Level of Care Code Critical Care 1st 30-74 mins Diagnoses Hypercapnic respiratory failure J96.92 Asthma with exacerbation J45.901 Asthma persistence: unspecified Asthma severity: unspecified severity Required emergent intubation Z98.890 Sinus tachycardia R00.0 COVID-19 U07.1 Hypoxia R09.02 (1) Asthma with exacerbation Asthma persistence: unspecified Asthma severity: unspecified severity Q ualified Code(s): J45.901 - Unspecified asthma with (acute) exacerbation
--- NOTE | 2021-08-03 11:09 | Hospitalist Progress Note ---
Date of Service August 03, 2021 Assessment & Plan (1) Asthma with exacerbation: Plan: severe persistent asthma with acute exacerbation long history of asthma, has not been hospitalized for years got worse over two days, quickly decompensated despite treatment intubated evening of 07/29/21 continue Solu Medrol 60mg TID albuterol nebulizers, budesonide 0.5 twice daily, Singulair, and Perforomist Zithromax 250mg IV daily for atypical coverage Magnesium IV per ICU (mag level is 3.0 today) bronchoscopy on 08/02: no airway obstruction, has inflammation biofire panel: only positive for COVID extubated 08/03 to high flow, less wheezing, moving more air than before close monitoring, remain ICU status (2) Hypercapnic respiratory failure: Plan: pCO2 still quite high this morning prior to extubation compensatory metabolic alkalosis, HCO3 in 40s (3) Hypoxia: Plan: due to asthma but majority of issue is hypercapnia CXR clear 08/02 extubated to high flow on 08/03 (4) COVID-19: Plan: stopped Remdesivir continue Solu Medrol for asthma exacerbation continue isolation D dimer normal at 260, no need for CTA chest continue Lovenox 40mg BID CTA chest on 08/02: no PE, no acute disease in the chest (5) Sinus tachycardia: Plan: due to stress, nebulizers no PE on CTA chest Plan: extubated today remain ICU status to closely monitor breathing Admission and Anticipated Discharge Date Admission Date: July 28, 2021 Subjective patient extubated this morning as he was doing well off sedation moving better air, less wheezing this morning I saw him right after extubation, he is lethargic but knows he is in the hospital RN noticed his abdomen is firm, no documented BM, but he has good bowel sounds reviewed labs, Cr 0.4, K 4.4, magnesium 3.0 biofire panel: COVID positive, all other respiratory viruses negative Review of Systems Review of Systems: Unobtainable due to cognitive status (lethargic, just waking up) Physical Exam Physical Exam: General: well developed, well nourished, lethargic after being extubated Neck: supple, trachea midline, normal thyroid Lungs: tachypneic and using accessory muscles, but better air flow, expiratory wheezing but no inspiratory wheezing Heart: tachycardic S1 and S2, no murmur, peripheral pulses normal, capillary refill normal, no edema Abdomen: firm, NT, slightly distended, + BS, no hepatomegaly, tympanic to percussion Extremities: normal in appearance, no cyanosis, no petechiae, strength is 5/5 bilaterally Neuro: no focal motor deficits, CN II-XII intact, strength normal Skin: warm, dry, no rash, normal turgor Psych: lethargic, oriented to person and place after being extubated Results & Data Results & Data ([facility]) Vital Signs (Past 12 Hours) Vital Signs Temp Pulse Resp Pulse Ox 08/03/21 10:00 37.5 C 104 H 22 92 08/03/21 09:00 37.4 C 105 H 21 91 08/03/21 08:00 37.4 C 101 H 22 92 08/03/21 07:59 103 H 22 94 08/03/21 07:00 37.4 C 107 H 22 94 08/03/21 04:49 96 H 24 94 08/03/21 00:00 98 H 08/02/21 23:55 96 H 28 H 97 Laboratory Results Laboratory Results - last 24 hr 08/02/21 08/02/21 08/02/21 12:36 13:30 16:21 WBC RBC Hgb Hct MCV MCH MCHC Plt Count Immature Gran % (Auto) Neut % (Auto) Lymph % (Auto) [place] % (Auto) Eos % (Auto) Baso % (Auto) Neut # (Auto) Lymph # (Auto) [place] # (Auto) Eos # (Auto) Baso # (Auto) Immature Gran # (Auto) Absolute Nucleated RBC Nucleated RBC % (auto) Sample Site POC pH POC pCO2 POC pO2 POC HCO3 POC Total CO2 POC Base Excess POC ABG O2 Sat Jv Test O2 Delivery Device POC O2 Rate Minute Ventilation POC FiO2 Tidal Volume PEEP Sodium Potassium Chloride Carbon Dioxide Anion Gap BUN Creatinine Est Cr Clr Drug Dosing Est GFR ( Amer) Est GFR (Non-Af Amer) BUN/Creatinine Ratio Glucose POC Glucose 113 H 128 H Calcium Phosphorus Magnesium Total Bilirubin Direct Bilirubin AST ALT Alkaline Phosphatase Total Protein Albumin Lipase Adenovirus (PCR) B. pertussis DNA (PCR) B.parapertussis DNA PCR C. pneumoniae DNA (PCR) Coronavirus OC43 (PCR) Coronavirus HKU1 (PCR) Coronavirus 229E (PCR) SARS-CoV-2 (PCR) Coronavirus NL63 (PCR) Human Metapneumovir PCR Influenza Type A (PCR) Influenza Type B (PCR) Legionella Source Pending Legionella Culture Pending M. pneumoniae (PCR) Parainfluenza 1 (PCR) Parainfluenza 2 (PCR) Parainfluenza 3 (PCR) Parainfluenza 4 (PCR) RSV (PCR) Entero/Rhino (PCR) 08/02/21 08/03/21 08/03/21 20:14 00:07 03:57 WBC RBC Hgb Hct MCV MCH MCHC Plt Count Immature Gran % (Auto) Neut % (Auto) Lymph % (Auto) [place] % (Auto) Eos % (Auto) Baso % (Auto) Neut # (Auto) Lymph # (Auto) [place] # (Auto) Eos # (Auto) Baso # (Auto) Immature Gran # (Auto) Absolute Nucleated RBC Nucleated RBC % (auto) Sample Site R Radial POC pH 7.37 POC pCO2 77 H POC pO2 77 L POC HCO3 45 H POC Total CO2 > 40 H* POC Base Excess 20.0 H POC ABG O2 Sat 94.0 Jv Test Pass O2 Delivery Device Ventilator POC O2 Rate 22 Minute Ventilation 6.1 POC FiO2 75 Tidal Volume 340 PEEP 3 Sodium Potassium Chloride Carbon Dioxide Anion Gap BUN Creatinine Est Cr Clr Drug Dosing Est GFR ( Amer) Est GFR (Non-Af Amer) BUN/Creatinine Ratio Glucose POC Glucose 118 H 127 H Calcium Phosphorus Magnesium Total Bilirubin Direct Bilirubin AST ALT Alkaline Phosphatase Total Protein Albumin Lipase Adenovirus (PCR) B. pertussis DNA (PCR) B.parapertussis DNA PCR C. pneumoniae DNA (PCR) Coronavirus OC43 (PCR) Coronavirus HKU1 (PCR) Coronavirus 229E (PCR) SARS-CoV-2 (PCR) Coronavirus NL63 (PCR) Human Metapneumovir PCR Influenza Type A (PCR) Influenza Type B (PCR) Legionella Source Legionella Culture M. pneumoniae (PCR) Parainfluenza 1 (PCR) Parainfluenza 2 (PCR) Parainfluenza 3 (PCR) Parainfluenza 4 (PCR) RSV (PCR) Entero/Rhino (PCR) 08/03/21 08/03/21 08/03/21 04:20 06:38 07:04 WBC 14.61 H RBC 4.35 L Hgb 12.9 L Hct 41.5 L MCV 95.4 MCH 29.7 MCHC 31.1 L Plt Count 172 Immature Gran % (Auto) 1.8 Neut % (Auto) 77.7 Lymph % (Auto) 9.5 [place] % (Auto) 10.9 Eos % (Auto) 0.0 Baso % (Auto) 0.1 Neut # (Auto) 11.35 H Lymph # (Auto) 1.39 [place] # (Auto) 1.59 H Eos # (Auto) 0.00 Baso # (Auto) 0.02 Immature Gran # (Auto) 0.26 H Absolute Nucleated RBC 0.04 H Nucleated RBC % (auto) 0.3 Sample Site POC pH POC pCO2 POC pO2 POC HCO3 POC Total CO2 POC Base Excess POC ABG O2 Sat Jv Test O2 Delivery Device POC O2 Rate Minute Ventilation POC FiO2 Tidal Volume PEEP Sodium Potassium Chloride Carbon Dioxide Anion Gap BUN Creatinine Est Cr Clr Drug Dosing Est GFR ( Amer) Est GFR (Non-Af Amer) BUN/Creatinine Ratio Glucose POC Glucose 140 H Calcium Phosphorus Magnesium Total Bilirubin Direct Bilirubin AST ALT Alkaline Phosphatase Total Protein Albumin Lipase Adenovirus (PCR) Not Detected B. pertussis DNA (PCR) Not Detected B.parapertussis DNA PCR Not Detected C. pneumoniae DNA (PCR) Not Detected Coronavirus OC43 (PCR) Not Detected Coronavirus HKU1 (PCR) Not Detected Coronavirus 229E (PCR) Not Detected SARS-CoV-2 (PCR) DETECTED A* Coronavirus NL63 (PCR) Not Detected Human Metapneumovir PCR Not Detected Influenza Type A (PCR) Not Detected Influenza Type B (PCR) Not Detected Legionella Source Legionella Culture M. pneumoniae (PCR) Not Detected Parainfluenza 1 (PCR) Not Detected Parainfluenza 2 (PCR) Not Detected Parainfluenza 3 (PCR) Not Detected Parainfluenza 4 (PCR) Not Detected RSV (PCR) Not Detected Entero/Rhino (PCR) Not Detected 08/03/21 08/03/21 07:04 07:50 WBC RBC Hgb Hct MCV MCH MCHC Plt Count Immature Gran % (Auto) Neut % (Auto) Lymph % (Auto) [place] % (Auto) Eos % (Auto) Baso % (Auto) Neut # (Auto) Lymph # (Auto) [place] # (Auto) Eos # (Auto) Baso # (Auto) Immature Gran # (Auto) Absolute Nucleated RBC Nucleated RBC % (auto) Sample Site POC pH POC pCO2 POC pO2 POC HCO3 POC Total CO2 POC Base Excess POC ABG O2 Sat Jv Test O2 Delivery Device POC O2 Rate Minute Ventilation POC FiO2 Tidal Volume PEEP Sodium 139 Potassium 4.4 Chloride 96 L Carbon Dioxide 41 H* Anion Gap 2 L BUN 25 H Creatinine 0.84 Est Cr Clr Drug Dosing 110.8 Est GFR ( Amer) 125.2 Est GFR (Non-Af Amer) 108.0 BUN/Creatinine Ratio 29.8 H Glucose 129 H POC Glucose 129 H Calcium 8.4 L Phosphorus 2.9 Magnesium 3.0 H Total Bilirubin 0.4 Direct Bilirubin 0.1 AST 23 ALT 24 Alkaline Phosphatase 52 Total Protein 6.1 Albumin 3.5 Lipase 14 Adenovirus (PCR) B. pertussis DNA (PCR) B.parapertussis DNA PCR C. pneumoniae DNA (PCR) Coronavirus OC43 (PCR) Coronavirus HKU1 (PCR) Coronavirus 229E (PCR) SARS-CoV-2 (PCR) Coronavirus NL63 (PCR) Human Metapneumovir PCR Influenza Type A (PCR) Influenza Type B (PCR) Legionella Source Legionella Culture M. pneumoniae (PCR) Parainfluenza 1 (PCR) Parainfluenza 2 (PCR) Parainfluenza 3 (PCR) Parainfluenza 4 (PCR) RSV (PCR) Entero/Rhino (PCR) Medications Administered Current Inpatient Medications Albuterol (Albut/Ipratrop 3mg/0.5mg Neb 3 Ml Vial) 3 ml NEB Q4R ANIL; Protocol Stop: 08/29/21 03:59 Last Admin: 08/03/21 07:58 Dose: 3 ml Documented by: Budesonide (Budesonide 0.5 Mg/2 Ml Vial (Pulmicort)) 0.5 mg NEB BIDR [facility] Stop: 08/29/21 06:59 Last Admin: 08/03/21 07:58 Dose: 0.5 mg Documented by: Enoxaparin Sodium (Enoxaparin Inj 40 Mg/0.4 Ml Syr) 40 mg SQ Q24H [facility] Stop: 08/27/21 07:59 Last Admin: 08/03/21 07:35 Dose: 40 mg Documented by: Fentanyl Citrate (Fentanyl Bolus From Bag) 50 mcg IV Q60M PRN PRN Reason: Pain or Agitation Stop: 08/12/21 21:57 Last Admin: 08/03/21 00:33 Dose: 50 mcg Documented by: Formoterol Fumarate (Formoterol 20 Mcg/2 Ml Vial) 20 mcg NEB BIDR [facility] Stop: 08/28/21 23:14 Last Admin: 08/03/21 07:58 Dose: 20 mcg Documented by: Fentanyl Citrate (Fentanyl Citrate) 2,500 mcg in 250 mls @ 15 mls/hr IV .[id number] [facility]; Protocol Stop: 08/12/21 21:59 Last Titration: 08/03/21 11:04 Dose: 0 mcg/hr, 0 mls/hr Documented by: Famotidine 20 mg/ Syringe 5 mls @ 2.5 mls/min IV Q12 [facility] Stop: 08/29/21 11:59 Last Admin: 08/03/21 09:55 Dose: 2.5 mls/min Documented by: Methylprednisolone 60 mg/ (Syringe) 0.96 mls @ 1.5 mls/min IV Q8H [facility] Stop: 08/30/21 13:59 Last Admin: 08/03/21 09:54 Dose: 1.5 mls/min Documented by: Azithromycin 250 mg/ Dextrose 252.5 mls @ 125 mls/hr IV QAM [facility] Stop: 08/05/21 11:02 Last Admin: 08/03/21 09:54 Dose: 125 mls/hr Documented by: Propofol (Diprivan) 1,000 mg in 100 mls @ 11.565 mls/hr IV .[id number] [facility]; Protocol Stop: 08/05/21 01:59 Last Titration: 08/03/21 10:50 Dose: 0 mcg/kg/min, 0 mls/hr Documented by: Insulin Aspart (Insulin Aspart Per Unit) 0 units SC Q4 [facility]; Protocol Stop: 08/29/21 15:59 Last Admin: 08/03/21 08:44 Dose: Not Given Documented by: Miscellaneous Information (Pharmacy Glycemic Mgmt Consult) 1 ea N/A UD PRN PRN Reason: Consult Stop: 08/29/21 14:41 Montelukast Sodium (Montelukast Sodium 10 Mg Tablet) 10 mg PO HS [facility] Stop: 08/29/21 20:59 Last Admin: 08/02/21 21:27 Dose: 10 mg Documented by: Multivitamins/Minerals (Multi Vit W/Minerals Liquid 15 Ml Udp) 15 ml NG QAM [facility] Stop: 08/31/21 08:59 Last Admin: 08/03/21 09:57 Dose: 15 ml Documented by: Nutritional Formula (Peptamen Intense Vhp 1.0 [place] 1,000 Ml Bag) 1,000 ml OG UD [facility]; Protocol Stop: 08/30/21 10:59 Last Admin: 07/31/21 12:06 Dose: 1,000 ml Documented by: Ondansetron HCl (Ondansetron Inj 2 Mg/Ml 2 Ml Vial) 4 mg IV Q6H PRN PRN Reason: Nausea Stop: 08/27/21 04:07 Propofol (Propofol Bolus From Bag) 20 mg IV Q5M PRN PRN Reason: Sedation Stop: 08/05/21 06:06 Last Admin: 08/03/21 00:33 Dose: 20 mg Documented by: Sterile Water (Tube Feeding Water Flush) 30 ml OG Q4H [facility] Stop: 08/30/21 10:59 Last Admin: 08/03/21 07:30 Dose: 30 ml Documented by: PG Care Time/CCT Total # of Minutes Spent Total Time Spent with Patient: Total time spent is greater than 50% in coordination of care (as documented) at patient's floor/unit and/or counseling patient: Coding Level of Care Code 37666 Subseq Hosp Care Lvl 3 Diagnoses Asthma with exacerbation J45.901 Asthma persistence: unspecified Asthma severity: unspecified severity Hypercapnic respiratory failure J96.92 Hypoxia R09.02 COVID-19 U07.1 Sinus tachycardia R00.0 (1) Asthma with exacerbation Asthma persistence: unspecified Asthma severity: unspecified severity Qualified Code(s): J45.901 - Unspecified asthma with (acute) exacerbation
[2021-08-03] MEDS ORDERED: STAT IV Infusion **Titration per Protocol STA (15:55)
[2021-08-03] MEDS: LINEZOLID 600 MG/300 ML BAG IV SCH (15:58)
[2021-08-03] MEDS: DEXMEDETOMIDINE HCL 200 MCG in SODIUM CHLORIDE 0.9% 48 ML IV SCH ×2 (17:31→20:32)
[2021-08-03] MEDS ORDERED: METHYLNALTREXONE BROMIDE 12 MG/0.6 ML VIAL SQ ONE (18:00)
[2021-08-03] MEDS: methylPREDNISolone 40 MG in SYRINGE 0 ML IV SCH (20:33)
[2021-08-03] MEDS: MONTELUKAST SODIUM 10 MG TABLET PO SCH (20:33)
[2021-08-04] MEDS: LINEZOLID 600 MG/300 ML BAG IV SCH ×2 (00:22→08:27)
[2021-08-04] MEDS: DEXMEDETOMIDINE HCL 200 MCG in SODIUM CHLORIDE 0.9% 48 ML IV SCH ×3 (00:22→10:40)
[2021-08-04] MEDS: INSULIN ASPART PER UNIT SC SCH ×6 (00:23→21:36)
[2021-08-04] MEDS: ALBUT/IPRATROP 3MG/0.5MG NEB 3 ML VIAL NEB SCH ×6 (03:12→23:08)
[2021-08-04] MEDS: methylPREDNISolone 40 MG in SYRINGE 0 ML IV SCH (05:21)
[2021-08-04 07:02] LABS: Hematocrit (blood only) 42.1 % (42-52); Hemoglobin 13.4 g/dL (14.0-18.0); Mean Corpuscular Hemoglobin 29.8 pg (25-34); Mean Corpuscular Hgb Conc 31.8 g/dL (32-36); Mean Corpuscular Volume 93.8 fL (80-100); Nucleated RBC # (auto) 0.02 K/uL (0-0); Nucleated RBC % (auto) 0.2 %; Platelet Count 152 K/uL (130-400); RDW Coefficient of Variation 13.1 % (11.5-14.5); RDW Standard Deviation 45.1 fL (36.4-46.3); Red Blood Count 4.49 M/uL (4.7-6.1); White Blood Count 13.23 K/uL (4.8-10.8)
--- NOTE | 2021-08-04 07:15 | XRay Report ---
SINGLE VIEW CHEST CLINICAL HISTORY: Covid pneumonia. FINDINGS: An AP, portable, upright chest radiograph is compared to study dated 08/03/2021 and correlat ed with chest CT dated 08/02/2021. Endotracheal and enteric tubes have been removed. The cardiomediast inal silhouette is unremarkable. Multifocal airspace consolidation is unchanged to modestly worsened as compared to yesterday. No large pleural effusion or pneumothorax is seen. The bony thorax is gross ly intact. IMPRESSION: 1. Endotracheal and enteric tubes have been removed. 2. Multifocal airspace consolidation is unchanged to modestly worsened from yesterday. ACT 112: Negative or not required by law. Electronically signed by: Laron Scott M.D. 08/04/2021 7:13 AM
[2021-08-04] MEDS: BUDESONIDE 0.5 MG/2 ML VIAL (PULMICORT) NEB SCH ×2 (07:25→20:09)
[2021-08-04] MEDS: FORMOTEROL 20 MCG/2 ML VIAL NEB SCH ×2 (07:26→20:09)
[2021-08-04 07:31] LABS: Magnesium 2.2 mg/dl (1.7-2.4); Phosphorus 3.6 mg/dl (2.5-4.9)
[2021-08-04 07:36] LABS: Basophils # (auto) 0.01 K/uL (0-0.2); Basophils % (auto) 0.1 %; Immature Granulocytes # (auto) 0.15 K/uL (0.00-0.02); Immature Granulocytes % (auto) 1.1 %; Lymphocytes # (auto) 2.24 K/uL (1.2-3.4); Lymphocytes % (auto) 16.9 %; Monocytes # (auto) 0.62 K/uL (0.11-0.59); Monocytes % (auto) 4.7 %; Neutrophils # (auto) 10.21 K/uL (1.4-6.5); Neutrophils % (auto) 77.2 %; Polychromasia 1+
[2021-08-04] MEDS: AZITHROMYCIN 250 MG in DEXTROSE 5% 250 ML IV SCH (08:27)
[2021-08-04] MEDS: MULTI VIT W/MINERALS LIQUID 15 ML UDP NG SCH (08:27)
[2021-08-04] MEDS: ENOXAPARIN INJ 40 MG/0.4 ML SYR SQ SCH (08:28)
--- NOTE | 2021-08-04 08:49 | Hospitalist Progress Note ---
Date of Service August 04, 2021 Assessment & Plan (1) Asthma with exacerbation: Plan: severe persistent asthma with acute exacerbation long history of asthma, has not been hospitalized for years got worse over two days, quickly decompensated despite treatment intubated evening of 07/29/21 extubated 08/03 transition to room air, changed to medical status continue Solu Medrol 40mg BID tapered to p.o. prednisone albuterol nebulizers, budesonide 0.5 twice daily, Singulair, and Perforomist Zithromax 250mg IV daily for atypical coverage MRSA nasal swab + on Linezolid bronchoscopy on 08/02: no airway obstruction, has inflammation biofire panel: only positive for COVID, nasal swab + MRSA (2) Hypercapnic respiratory failure: (3) Hypoxia: Plan: due to asthma, some contribution of covid pneumonia , but majority of issue is hypercapnia CXR clear 08/02 extubated to high flow on 08/03 (4) COVID-19: Plan: First symptoms: ~07/28/21 First tested: in our system 08/03/21 Vaccinated: yes + booster Admission date: 07/28/21 Admission O2 requirement: 78 Admission CRP: <0.05 Dexamethasone not started: Remdesivir not started due to intubation Tocilizumab/baricitinib contraindication: indication pneumonia seen on CXR Antibiotics: azithromycin and linezolid D dimer normal at 260, no need for CTA chest continue Lovenox 40mg BID CTA chest on 08/02: no PE, no acute disease in the chest (5) Sinus tachycardia: Plan: due to stress, nebulizers no PE on CTA chest (6) Benign fasciculations: Plan: Patient has fasciculations with no associated electrolyte abnormalities no associated muscular weakness we will check TSH but these may be benign fasciculations and more related to his acute illness state and not related to chronic disease process Admission and Anticipated Discharge Date Admission Date: July 28, 2021 Subjective Patient is awake and alert breathing easily downgraded to medical by ICU pulmonary team. Complaints today are some fasciculations which she says happens them all the time and the willingness to want to get better and get back to the intermediate Review of Systems Review of Systems: Mild distress and fatigue no headache, no visual changes no speech or swallowing issues no chest pain, pressure or palpitations Some mild shortness of breath, but no cough or wheezes no abdominal pain, nausea or vomiting, diarrhea or constipation no dysuria, hematuria or frequency no focal joint pain or swelling no back pain, CVA tenderness or radicular pain no bruising, bleeding or rashes no focal signs of weakness or numbness or altered sensation has had fasciculations of leg muscles and torso. Patient is otherwise heavily possible from working out no complaints of anxiety or depression.. Physical Exam Physical Exam: The patient appeared well nourished and normally developed. Vital signs as documented. Head exam is normocephalic atraumatic Neck is without JVD, thyromegaly, or carotid bruits. Lungs are clear to auscultation, no focal loss of breath sounds Cardiac exam, Rhythm is regular.. No murmurs, rubs or gallops. Abdominal exam reveals normal bowel sounds, soft non tender, no masses Extremities are nonedematous and both pedal pulses are present Neurologic exam is alert and oriented, no focal loss of strength or sensation fasciculations of his quadriceps torso and chest Skin is without bruises or rashes Psychologically is without concerns for anxiety or depression.. Results & Data Results & Data ([facility]) Vital Signs (Past 12 Hours) Vital Signs Pulse Pulse Resp BP Pulse Ox 08/04/21 07:27 62 17 95 08/04/21 06:00 67 0 L 143/84 H 100 08/04/21 05:00 59 L 0 L 147/79 H 100 08/04/21 04:00 60 0 L 140/74 100 08/04/21 03:04 66 18 96 08/04/21 03:00 84 0 L 150/91 H 08/04/21 02:00 61 0 L 138/77 08/04/21 01:00 83 0 L 124/92 100 08/04/21 00:00 97 H 0 L 128/74 97 08/03/21 23:36 68 08/03/21 23:00 92 H 0 L 135/89 95 08/03/21 22:27 70 22 94 08/03/21 22:00 100 H 0 L 129/87 91 08/03/21 21:00 77 0 L 159/83 H 96 PG Care Time/CCT Total # of Minutes Spent Total Time Spent with Patient: Total time spent is greater than 50% in coordination of care (as documented) at patient's floor/unit and/or counseling patient: Coding Level of Care Code 44365 Subseq Hosp Care Lvl 3 Diagnoses Asthma with exacerbation J45.901 Asthma persistence: unspecified Asthma severity: unspecified severity Hypercapnic respiratory failure J96.92 Hypoxia R09.02 COVID-19 U07.1 Sinus tachycardia R00.0 Benign fasciculations R25.3 (1) Asthma with exacerbation Asthma persistence: unspecified Asthma severity: unspecified severity Qualified Code(s): J45.901 - Unspecified asthma with (acute) exacerbation
[2021-08-04] MEDS ORDERED: LINEZOLID CONSULT ACTIVE PRN (09:48)
--- NOTE | 2021-08-04 09:49 | Critical Care Progress Note ---
Date of Service August 04, 2021 Assessment & Plan (1) Hypercapnic respiratory failure: Plan: Reason Critically Ill: 41-year-old male from [facility] with history of poorly controlled asthma presents to the ICU with acute asthma exacerbation and worsening hypercapnic respiratory failure requiring emergent intubation. Neuro - Sedation: Discontinue Precedex -Liberalize activity to ad srinath. as tolerated Cardiac - Tachycardiasinus tachycardia with rate 130s to 140s following albuterol nebulizers. Respiratory - Acute hypercapnic respiratory failure secondary to asthma exacerbationpatient was admitted on 07/28/2021 with acute asthma exacerbation. Patient was COVID-19 positive on PCR but is not significantly hypoxic at this time chest x-ray is clear without evidence of viral pneumonia. He did receive 1 dose remdesivir Convert to prednisone taper 40 mg x 4 days then 20 mg x 4 days and 10 mg x 4 days then 5 mg x 4 days and then stop GI - N.p.o. Start tube feeds RENAL/LYTES - Creatinine stable, no electrolyte abnormalities Monitor routine BMPs - Discontinue [facility] END[facility] - No history of diabetes or thyroid disease ICU hyperglycemic protocol HEME - H&H stable, monitor routine CBC ID - Azithromycin, convert to p.o. last dose tomorrow COVID-19patient tested + 07/27/2021. -Patient did receive 1 dose remdesivir but was discontinued after first dose. MRSA isolated from bronchoscopy wash -Unclear if this is pathologic but given severity of disease we will continue with Zyvox for 7 days total therapy LINES/IV ACCESS - Peripheral IVs DVT PROPHYLAXIS - SCDs, Lovenox Stable for downgrade out of ICU (2) Asthma with exacerbation: (3) Required emergent intubation: (4) Sinus tachycardia: (5) COVID-19: (6) Hypoxia: Admission and Anticipated Discharge Date Admission Date: July 28, 2021 Subjective No overnight events, decreasing Precedex, no evidence of agitation. Breathing much more easily Review of Systems Review of Systems: No exertional dyspnea no chest pain Physical Exam Physical Exam: General: Alert. nontoxic. Skin: Warm, dry, Head: Atraumatic Ears, nose, mouth and throat: airway patent Cardiovascular: Normal peripheral perfusion Respiratory: no respiratory distress Gastrointestinal: Non distended Musculoskeletal: No deformity Results & Data Results & Data ([facility]) Vital Signs (Past 12 Hours) Vital Signs Pulse Pulse Resp BP Pulse Ox 08/04/21 07:27 62 17 95 08/04/21 06:00 67 0 L 143/84 H 100 08/04/21 05:00 59 L 0 L 147/79 H 100 08/04/21 04:00 60 0 L 140/74 100 08/04/21 03:04 66 18 96 08/04/21 03:00 84 0 L 150/91 H 08/04/21 02:00 61 0 L 138/77 08/04/21 01:00 83 0 L 124/92 100 08/04/21 00:00 97 H 0 L 128/74 97 08/03/21 23:36 68 08/03/21 23:00 92 H 0 L 135/89 95 08/03/21 22:27 70 22 94 08/03/21 22:00 100 H 0 L 129/87 91 Critical Care Results & Data Vital Signs (Past 12 Hours) Vital Signs Pulse Pulse Resp BP Pulse Ox 08/04/21 07:27 62 17 95 08/04/21 06:00 67 0 L 143/84 H 100 08/04/21 05:00 59 L 0 L 147/79 H 100 08/04/21 04:00 60 0 L 140/74 100 08/04/21 03:04 66 18 96 08/04/21 03:00 84 0 L 150/91 H 08/04/21 02:00 61 0 L 138/77 08/04/21 01:00 83 0 L 124/92 100 08/04/21 00:00 97 H 0 L 128/74 97 08/03/21 23:36 68 08/03/21 23:00 92 H 0 L 135/89 95 08/03/21 22:27 70 22 94 08/03/21 22:00 100 H 0 L 129/87 91 Lab & Micro Results (Past 24 Hours) RBC 4.49 M/uL (4.7-6.1) L 08/04/21 WBC 13.23 K/uL (4.8-10.8) H 08/04/21 Hgb 13.4 g/dL (14.0-18.0) L 08/04/21 Hct 42.1 % (42-52) 08/04/21 MCV 93.8 fL (80-100) 08/04/21 MCH 29.8 pg (25-34) 08/04/21 MCHC 31.8 g/dL (32-36) L 08/04/21 RDW Standard Deviation 45.1 fL (36.4-46.3) 08/04/21 RDW Coefficient of Variation 13.1 % (11.5-14.5) 08/04/21 Plt Count 152 K/uL (130-400) 08/04/21 MPV 11.0 fL (7.4-10.4) H 08/04/21 Nucleated Red Blood Cells % (auto) 0.2 % 08/04/21 Nucleated RBC Absolute Count (auto) 0.02 K/uL (0-0) H 08/04/21 Neutrophils (%) (Auto) 77.2 % 08/04/21 Lymphocytes (%) (Auto) 16.9 % 08/04/21 Monocytes # (Auto) 0.62 K/uL (0.11-0.59) H 08/04/21 Eosinophils # (Auto) 0.00 K/uL (0-0.5) 08/04/21 Immature Granulocyte % (Auto) 1.1 % 08/04/21 Neutrophils # (Auto) 10.21 K/uL (1.4-6.5) H 08/04/21 Lymphocytes # (Auto) 2.24 K/uL (1.2-3.4) 08/04/21 Monocytes # (Auto) 0.62 K/uL (0.11-0.59) H 08/04/21 Eosinophils # (Auto) 0.00 K/uL (0-0.5) 08/04/21 Basophils # (Auto) 0.01 K/uL (0-0.2) 08/04/21 Immature Granulocyte # (Auto) 0.15 K/uL (0.00-0.02) H 08/04/21 Polychromasia 1+ 08/04/21 Phosphorus Level 3.6 mg/dl (2.5-4.9) 08/04/21 Mg 2.2 mg/dl (1.7-2.4) 08/04/21 06:15 08/04/21 Microbiology 08/02/21 13:30 Gram Stain - Final Bronch Wash,Right Lower Lobe Bronchial Culture - Final Staph aureus MRSA 08/02/21 13:30 Acid Fast Bacilli Smear - Final Bronch Wash,Right Lower Lobe Diagnostic Findings (Past 24 Hours) Chest X-Ray 08/04/21 07:00 SINGLE VIEW CHEST CLINICAL HISTORY: Covid pneumonia. FINDINGS: An AP, portable, upright chest radiograph is compared to study dated 08/03/2021 and correlated with chest CT dated 08/02/2021. Endotracheal and enteric tubes have been removed. The cardiomediastinal silhouette is unremarkable. Multifocal airspace consolidation is unchanged to modestly worsened as compared to yesterday. No large pleural effusion or pneumothorax is seen. The bony thorax is grossly intact. IMPRESSION: 1. Endotracheal and enteric tubes have been removed. 2. Multifocal airspace consolidation is unchanged to modestly worsened from yesterday. ACT 112: Negative or not required by law. Electronically signed by: Laron Scott M.D. 08/04/2021 7:13 AM I & O Totals 24 Hours 08/03/21 08/04/21 08/05/21 06:59 06:59 06:59 Intake Total 1831.945 / 5394.091 1066.411 / 1348.411 Output Total 2110 / 2110 2200 / 2200 Balance -278.055 / -278.055 -851.589 / -851.589 Cumulative 07/27/21 21:47 thru 08/04/21 06:00 Intake Total 56241.744 Output Total 08809 Balance 2592.744 RT Ventilator Mngmt (Last Documented) Ventilator Ordered Settings Ventilator Support Mode Assist Control 08/03/21 09:00 Respiratory Rate 17 08/04/21 07:27 Ventilator Tidal Volume 340 08/03/21 09:00 Setting Minute Ventilation 7.5 08/03/21 07:59 Positive End Expiratory 3 08/03/21 09:00 Pressure Fraction of Inspired Oxygen 50 08/04/21 07 :27 Peak Inspiratory Flow 39 08/02/21 12:33 Machine Comment FiO2 found at 65%. ABG drawn at 08/02/21 03:19 this time Ventilator - PT Measurements Respiratory Rate 17 Exhaled Tidal Volume 341 Minute Ventilation 7.5 Peak Inspiratory Airway 27 Pressure Plateau Pressure 18 Respiratory Cycle Inspiratory: 1:2.9 Expiratory Ratio Inspiratory Phase Time 0.7 End-Tidal CO2 48 Static Lung Compliance 22.73 Dynamic Lung Compliance 14.21 Normal Static Lung Compliance 43.00 Patient Measurements Comment FiO2 decreased to 75%, Unable to obtain plat at this time patient is waking up and agitated. Pastura tinged secretions drained from expiratory limb, RN made aware. Coding Level of Care Code 34016 Subseq Hosp Care Lvl 3 Diagnoses Hypercapnic respiratory failure J96.92 Asthma with exacerbation J45.901 Asthma persistence: unspecified Asthma severity: unspecified severity Required emergent intubation Z98.890 Sinus tachycardia R00.0 COVID-19 U07.1 Hypoxia R09.02 (1) Asthma with exacerbation Asthma persistence: unspecified Asthma severity: unspecified severity Qualified Code(s): J45.901 - Unspecified asthma with (acute) exacerbation
[2021-08-04] MEDS ORDERED: predniSONE 20 MG TAB PO SCH (10:00)
--- NOTE | 2021-08-04 10:06 | Pharmacy Report ---
Pharmacy Glycemic Short Note 2 - Date of Service August 04, 2021 - Glycemic Short BSG Results (Last 24 hours): 08/03/21 08/03/21 08/03/21 11:30 16:56 20:11 POC Glucose 163 H 111 H 87 08/03/21 08/04/21 08/04/21 23:58 03:50 08:05 POC Glucose 110 H 116 H 115 H OUTPATIENT ANTIDIABETIC REGIMEN: * n/A * a1C 5.8% ASSESSMENT: 08/04/21: * Mr Lafleur's BSGs have been quite stable past several days while on tube feedings. Patient was managed on NovoLog only. * Patient's diet has advanced to a Regular diet today. * NovoLog switched from protocol dosing with tube feed coverage to conventional CF/CR parameters. * Will adjust as required as diet is advanced/tolerated. * Patient has not required any basal insulin, despite ongoing high dose steroids. Do not anticipate that he will require any moving forward. * SoluMedrol reduced from 60mg IV q8h --> 40mg IV q8h last evening. Further reduced to oral prednisone taper today. Will follow and adjust regimen if BSGs trend up/down with steroid adjustments. 07/31 * A1c 5.8%, indicates pre-diabetes. BSGs trended downward with addition of novolog and 10 units of lantus. Will hold basal insulin today and continue with ICU protocol for hyperglycemia. Steroids were tapered to solumedrol 60 mg q8H and TF were started at [facility]. Continue to monitor for hyper/hypoglycemia. 07/30 * 41 year old admitted with COVID-19 infection/asthma exacerbation. Currently being treated for asthma exacerbation with methylprednisolone 80 mg q8H, currently intubated, sedated with fentanyl,propofol, also on ketamine infusion. BSGs appear to be elevated with steroid use, not on outpatient diabetes medications per facility records. Will attempt to use ICU protocol for hyperglycemia with novolog scale and reduced dose of lantus as patient is NPO. If BSGs unable to be controlled will start insulin infusion PLAN FOR INPATIENT GLYCEMIC CONTROL: * Hold outpatient oral diabetes medications * Basal insulin * none at this time * Bolus insulin * NovoLog per scale ACHS or Q6hrs while NPO * Goal Range: Low 120 mg/dL - High 150 mg/dL * Correction Factor: 30 mg/dL/unit * Nutritional / Prandial insulin per carb ratio of 1 unit per 10 grams CHO consumed DISCHARGE RECOMMENDATIONS: * A1c: 5.8% * Do not anticipate that pt will require any medication changes on discharge. * Support Patient Self-Management * Healthy Lifestyle (diet, exercise, and smoking cessation) * Disease self-management (SMBG) * Prevention of complications (BP, Lipid goals, Immunizations) * Consider outpatient Diabetes Self-Management Education & Support
[2021-08-04] MEDS: predniSONE 10 MG TABLET PO SCH (11:05)
[2021-08-04] MEDS: ZINC SULFATE 220 MG CAPSULE PO SCH (11:06)
[2021-08-04] MEDS: MULTIVITAMIN TAB PO SCH (11:06)
[2021-08-04] MEDS: LINEZOLID 600 MG TAB PO SCH (21:36)
[2021-08-04] MEDS: MONTELUKAST SODIUM 10 MG TABLET PO SCH (21:36)
[2021-08-05] MEDS: ALBUT/IPRATROP 3MG/0.5MG NEB 3 ML VIAL NEB SCH ×4 (03:48→15:39)
[2021-08-05 07:54] LABS: Hematocrit (blood only) 43.9 % (42-52); Hemoglobin 14.3 g/dL (14.0-18.0); Mean Corpuscular Hemoglobin 29.6 pg (25-34); Mean Corpuscular Hgb Conc 32.6 g/dL (32-36); Mean Corpuscular Volume 90.9 fL (80-100); Mean Platelet Volume 10.6 fL (7.4-10.4); Platelet Count 178 K/uL (130-400); RDW Standard Deviation 43.3 fL (36.4-46.3); Red Blood Count 4.83 M/uL (4.7-6.1); White Blood Count 12.49 K/uL (4.8-10.8)
[2021-08-05 08:14] LABS: Basophils # (auto) 0.03 K/uL (0-0.2); Basophils % (auto) 0.2 %; Eosinophils # (auto) 0.07 K/uL (0-0.5); Eosinophils % (auto) 0.6 %; Lymphocytes # (auto) 3.35 K/uL (1.2-3.4); Lymphocytes % (auto) 26.8 %; Monocytes # (auto) 0.97 K/uL (0.11-0.59); Monocytes % (auto) 7.8 %; Neutrophils # (auto) 7.57 K/uL (1.4-6.5); Neutrophils % (auto) 60.6 %
[2021-08-05 08:18] LABS: Calcium 8.8 mg/dl (8.5-10.1); Est GFR (African American) 123.4 ml/min; Est GFR (Non-African American) 106.5 ml/min; Magnesium 1.8 mg/dl (1.7-2.4); Phosphorus 2.3 mg/dl (2.5-4.9); Potassium 3.1 mmol/L (3.5-5.1)
[2021-08-05] MEDS ORDERED: AZITHROMYCIN 250 MG TAB PO SCH (09:00)
[2021-08-05] MEDS: INSULIN ASPART PER UNIT SC SCH ×3 (09:30→17:00)
[2021-08-05] MEDS: ENOXAPARIN INJ 40 MG/0.4 ML SYR SQ SCH (10:01)
[2021-08-05] MEDS: LINEZOLID 600 MG TAB PO SCH (10:02)
[2021-08-05] MEDS: ZINC SULFATE 220 MG CAPSULE PO SCH (10:02)
[2021-08-05] MEDS: MULTIVITAMIN TAB PO SCH (10:02)
[2021-08-05] MEDS: predniSONE 10 MG TABLET PO SCH (10:03)
[2021-08-05] MEDS: BUDESONIDE 0.5 MG/2 ML VIAL (PULMICORT) NEB SCH (11:14)
[2021-08-05] MEDS: FORMOTEROL 20 MCG/2 ML VIAL NEB SCH (11:14)
[2021-08-05] MEDS ORDERED: POTASSIUM CHLORIDE CRTAB 20 MEQ TABCR PO STA (11:37)
[2021-08-05] MEDS ORDERED: POTASSIUM PHOS 3 MMOL/1 ML INFUSION IV STA (11:37)
[2021-08-05] MEDS ORDERED: POTASSIUM PHOSPHATE 15 MMOL in SODIUM CHLORIDE 0.9% 250 ML IV ONE (12:30)
--- NOTE | 2021-08-05 17:21 | Discharge Summary ---
Date of Service August 05, 2021 Admission HPI Per Admitting Provider Nick Lafleur is a 41yo male with history of poorly controlled asthma presenting with cough, SOB, wheeze, chest tightness. Patient found to be POSITIVE for Covid-19 infection. He is fully vaccinated against Covid-19 and reports receiving the booster as well. His symptoms began acutely this morning upon waking up. He has SOB, chest tightness, dry cough. He denies fever, chills, rigors. Denies abdominal pain, nausea, vomiting, diarrhea or constipation. No additional complaints at this time. Patient was seen in the [facility] and reportedly had O2 saturations in the 70's and 80's. He was administered Prednisone as well as a nebulizer treatment at the senior care and was given Solumedrol and nebulizer en route by EMS. Upon arrival patient in respiratory distress with RR of 26, short/shallow yessenia thing with nasal flaring, pursed lips and retractions. Initial saturation of 84%. Patient was administered a 12mL neb in the ER. Patient still with complaint of SOB, chest tightness and wheeze. He is disappointed that he has tested positive for Covid-19 despite being fully vaccinated. Patient reports his asthma is not well controlled as an outpatient. He is triggered by dust as well as warm, dry air which is prevalent in the senior care. He needs his rescue inhaler several times per day. He reports being on a BID inhaler. No history of intubation but patient has been hospitalized for asthma before. ER Course: NSS 500mL, Albuterol 12mL neb Principal Diagnosis Acute respiratory failure requiring intubation Asthma exacerbation MRSA lung infection/pneumonia COVID-19 positive test (U07.1, COVID-19) with Acute Pneumonia (J12.89, Other viral pneumonia) (If respiratory failure or sepsis present, add as separate assessment) Discharge Exam The patient appeared well Vital signs as documented. Lungs are clear to auscultation and appear unlabored Cardiac exam, Rhythm is regular.. No murmurs, rubs or gallops. Abdominal exam reveals normal bowel sounds, soft non tender, no masses Extremities are nonedematous and both pedal pulses are normal. Neurologic exam is alert and oriented, no focal loss of strength or sensation Skin is without bruises or rashes Psychologically is without concerns for anxiety or depression. Discharge Data Allergies Allergy/AdvReac Type Severity Reaction Status Date / Time No Known Allergies Allergy Unverified 07/28/21 05:31 Consultations 07/28/21 00:11 ED Decision to Admit Stat 07/29/21 22:41 Consult Machine Clipper Routine Ordered Studies 08/02/21 10:31 CT angio chest PE protocol Routine Impression: 1. No CTA evidence for pulmonary embolus. 2. No acute chest disease. There is a minimal dependent edema versus atelectasis at the lung bases posteriorly. 3. ET tube and enteric catheter in satisfactory position.. Hospital Course (1) Asthma with exacerbation: severe persistent asthma with acute exacerbation long history of asthma, has not been hospitalized for years got worse over two days, quickly decompensated despite treatment intubated evening of 07/29/21 extubated 08/03 transition to room air, changed to medical status stable on room air for the next 2 days prednisone taper over the next 12 days albuterol nebulizers, budesonide 0.5 twice daily, Singulair, and Perforomist we will discharged on Singulair Symbicort and as needed albuterol MRSA nasal swab + on Linezolid discharge in a week of Bactrim bronchoscopy on 08/02: no airway obstruction, has inflammation biofire panel: only positive for COVID, nasal swab + MRSA (2) Hypercapnic respiratory failure: (3) Hypoxia: due to asthma, some contribution of covid pneumonia , but majority of issue is hypercapnia CXR clear 08/02 extubated to high flow on 08/03 Hypoxia resolved (4) COVID-19: First symptoms: ~07/28/21 First tested: in our system 08/03/21 Vaccinated: yes + booster Admission date: 07/28/21 Admission O2 requirement: 78 Admission CRP: <0.05 Dexamethasone not started: Remdesivir not started due to intubation Tocilizumab/baricitinib contraindication: indication pneumonia seen on CXR Antibiotics: azithromycin and linezolid D dimer normal at 260, no need for CTA chest continue Lovenox 40mg BID CTA chest on 08/02: no PE, no acute disease in the chest (5) Sinus tachycardia: due to stress, nebulizers no PE on CTA chest (6) Benign fasciculations: Patient has fasciculations with no associated electrolyte abnormalities no associated muscular weakness we will check TSH but these may be benign fasciculations and more related to his acute illness state and not related to chronic disease process Discussed with provider on-call with the senior care system accepted in transfer back to the senior care on 08/05 Total Time Total Time Spent Total Time Spent (In Minutes): It required greater than 30 minutes to prepare this patient for discharge Discharge Plan Discharge Items Patient Disposition: Home - Self-Care Reason For Visit: SOB,COUGH *1 VIEW ONLY* Discharge Diagnosis: viral pneumonia mrsa infection asthma exacerbation Activity: Per Instructions section Non-emergency contact: Primary Care Provider Call non-emergency contact if: your symptoms worsen and you have a fever Follow-up/Referrals: Kendall JAIN [Primary Care Provider] - Diet: Regular Addtl Attending Provider Instructions: You have been diagnosed with covid infection, it would be recommended that you quarantine yourself for 10 days from your first test or first symptoms, and if at the 10th day you have no symptoms the you can come off quarantine but use c ommon sense precautions. Quarantine means attempting to stay away from people who have not had an active covid infection in the past, and if you have to be around others to wear a mask even if you are indoors, do not share a room to sleep in with others until you are out of quarantine. If you still have symptoms at the 10th day, continue to quarantine until you are symptom free for 48 hours Complete your antibiotics for additional 7 days Taper prednisone Pending Studies at Discharge: No Stand-Alone Forms: My [employer], Smoking Cessation Medications and DC Order Prescriptions: New montelukast [Singulair] 10 mg Tablet 10 mg PO HS Qty: 30 RF: 0 budesonide-formoterol [Symbicort] 80-4.5 mcg/actuation HFA aerosol inhaler 1 inh inhalation BID Qty: 10.2 RF: 0 albuterol sulfate [ProAir HFA] 90 mcg/actuation HFA aerosol inhaler 1 inh inhalation Q6H PRN (Reason: shortness of breath or wheezing) Qty: 6.7 RF: 0 sulfamethoxazole-trimethoprim [Bactrim] 400-80 mg tablet 1 tab PO BID 7 Days Qty: 14 RF: 0 prednisone 10 mg tablet 10 mg PO DAILY Qty: 48 RF: 0 Discharge Orders: Discharge Order (Routine); Ordered 08/05/21 Ordered By: Charlie Jaime Admission Data Admit Date/Time: 07/28/21 01:12 Attending Provider: Charlie Jaime Admit Provider: Mitali Pereira Primary Care Provider: Kendall JAIN Other Providers: Mitali Pereira ; Renzo Cali Other Interventions: Discharge Summary Assessment (RN) Last Done: 08/05/21 17:11 Coding Level of Care Code D/C DAY MANAGEMENT >30 MINS Diagnoses Asthma with exacerbation J45.901 Asthma persistence: unspecified Asthma severity: unspecified severity Hypercapnic respiratory failure J96.92 Hypoxia R09.02 COVID-19 U07.1 Sinus tachycardia R00.0 Benign fasciculations R25.3
[2021-08-14 10:45] LABS: Legionella Culture Source RIGHT LOWER LOBE
== END 2021-08-05 18:20 | DRG 207 ==
LOC: ED 21:56 → SUATTDRO 07-28 01:12 → 2S 07-28 01:12 → 2E 07-29 21:47